=== PATIENT | female | born 1950 | race Caucasian/White ===

== ENCOUNTER 2020-04-15 20:13 | Emergency (ER) | payer MEDICARE, SELFPAY ==
--- NOTE | ~2020-04-15 | XR_ITS ---
EXAMINATION: XR chest 1V portable EXAM DATE: 04/15/2020 20:38 INDICATION: Shortness of breath for 4 days. COVID 19 positive. TECHNIQUE: Portable AP frontal chest x-ray was obtained. There is no prior study for comparison. FINDINGS: There is mild cardiomegaly and pulmonary vascular congestion. No confluent consolidation, p neumothorax or pleural effusion suspected. Left glenoid screws. Bony degenerative changes. IMPRESSION: Cardiomegaly, pulmonary vascular congestion. Reviewed, dictated and finalized at location A. ENT OMBUDSPERSON
[2020-04-15 20:18] VITALS: PULSE 80; RESP 18; TEMP 35.6; O2SAT 92
--- NOTE | 2020-04-15 20:21 | ECG_ITS ---
Measurements Intervals [place] Rate: 73 P: 32 AL: 154 QRS: 41 QRSD: 114 T: 6 QT: 400 QTc: 441 Interpretive Statements SINUS RHYTHM INTRAVENTRICULAR CONDUCTION DELAY BASELINE ARTIFACT- I, II, III, AVR, AVL, AVF BORDERLINE ECG Electronically Signed On 04-15-2020 20:34:31 PRODUCTION WELDING SUPERVISOR by Dewayne Vences D.O.
--- NOTE | 2020-04-15 20:34 | ED.SOB ---
HPI - SOB/Dyspnea General Chief Complaint: Shortness of Breath/Dyspnea Stated Complaint: wheezing, CoVID + Time Seen by Provider: 04/15/20 20:21 Source: patient Mode of arrival: ambulatory Limitations: no limitations History of Present Illness HPI Narrative: A 70-year-old female presents to the emergency department [facility] with complaints of shortness of breath. Patient was at an outside urgent care center, diagnosed with Covid. She was told she needed to come here for a breathing treatment. Patient does note that she feels somewhat short of breath and is wheezing. She denies any underlying history at this time. Patient states she does feel somewhat short of breath but otherwise is feeling well. Related Data Home Medications Medication Instructions Recorded Confirmed montelukast mg 04/15/20 pantoprazole PO 04/15/20 sertraline mg 04/15/20 Allergies Allergy/AdvReac Type Severity Reaction Status Date / Time Dairy Allergy Unknown Wheezing Uncoded 04/15/20 20:22 Review of Systems Review of Systems: Narrative: CONSTITUTIONAL: Denies fever, chills, or sweats. EYES: Denies visual changes, redness, or discharge. ENT: Denies rhinorrhea, congestion, sore throat, or otalgia. CARDIOVASCULAR: Denies chest pain, palpitations, or edema. RESPIRATORY: Endorses wheezing and dyspnea GASTROINTESTINAL: Denies abdominal pain, nausea, vomiting, or diarrhea. GENITOURINARY: Denies dysuria or hematuria. SKIN: Denies rash or itching. MUSCULOSKELETAL: Denies back pain, joint pain, or myalgia. NEUROLOGIC: Denies headache, numbness, dizziness, or weakness. PSYCHIATRIC: Denies anxiety or depression. [facility] Family History Family History Mother Family history of arthritis Family history of chronic obstructive pulmonary disease Sibling Family history of arthritis Social History Social History Smoking status: Never smoker Alcohol intake: current Gender identity (if verbalized by the patient): Female Sexual Orientation (if Verbalized by the Patient): Straight or Heterosexual Exam Narrative: Exam Narrative: GENERAL: Well-appearing, well-nourished, and in no acute distress. HEAD: Normocephalic, atraumatic. EYES: PERRLA and EOMI. ENT: Nares clear, no rhinorrhea or epistaxis. Mucous membranes moist. Oropharynx without tonsillar hypertrophy exudate or other lesions. Bilateral TMs pearly welch nonbulging NECK: Supple. No adenopathy or masses. No carotid bruits or JVD CHEST: Slightly tachypneic, diffusely wheezy HEART: Regular rate and rhythm. No murmur heard. Normal peripheral pulses. ABDOMEN: Soft, nontender, nondistended, normal active bowel sounds. EXTREMITIES: Normal range of motion. No edema. SKIN: Warm, dry, no rash. NEURO: No focal deficits. Alert and oriented x3. PSYCH: Normal mood and affect. Course Vital Signs Vital signs: Vital Signs Temperature 35.6 C L 04/15/20 20:18 Pulse Rate 80 04/15/20 20:18 Respiratory Rate 18 04/15/20 20:18 Pulse Oximetry 92 04/15/20 20:18 Temperature 35.6 C L 04/15/20 20:18 Pulse Rate 87 04/15/20 21:43 Respiratory Rate 20 04/15/20 21:43 Blood Pressure 136/46 L 04/15/20 21:43 Pulse Oximetry 96 04/15/20 21:43 MDM - SOB/Dyspnea MDM Narrative Medical decision making narrative: In brief this is a 70-year-old female who came into the emergency department today with shortness of breath. Patient was diagnosed with COVID-19 at an outside facility. She presented here very wheezy. She was told to come to the emergency department for breathing treatment. Patient did receive a breathing treatment as well as steroids. After period of observation she did state that she was feeling much better and is ready to go home. Lab Data Result diagrams: 04/15/20 20:36 04/15/20 20:36 Labs: Lab Results 04/15/20 04/15/20 Range/Units 20:36 20:
[2020-04-15 20:43] LABS: Basophils Percent Auto 0.3 % (0.2-1.2); Hematocrit 39.5 % (37.0-47.0); Hemoglobin 12.8 g/dL (12.0-15.0); Immature Granulocyte Absolute 0.01 K/mm3 (0.00-0.031); Immature Granulocyte Percent A 0.3 % (0-0.5); Immature Platelet Fraction Pct 5.5 % (0.9-11.2); Lymphocytes Percent Auto 13.3 % (18.3-44.2); Mean Corpuscular HGB Conc 32.4 g/dl (32-36); Mean Corpuscular Hemoglobin 27.6 pg (26-34); Mean Corpuscular Volume 85.3 fl (80-100); Monocytes Absolute Auto 0.4 K/mm3 (0.1-0.6); Monocytes Percent Auto 9.3 % (2.6-8.5); Neutrophils Absolute Auto 2.9 K/mm3 (1.3-6.7); Neutrophils Percent Auto 76.8 % (45.5-73.1); Platelet Count Result 137 k/mm3 (150-375); Red Blood Count 4.63 M/mm3 (4.2-5.4); Red Cell Distribution Width 13.5 % (11.5-14.5); White Blood Count 3.8 K/mm3 (4.5-10.0)
[2020-04-15 20:53] LABS: Anion Gap 10 mmol/L (8-16); Blood Urea Nitrogen 13 mg/dL (7-17); Calcium 8.8 mg/dL (8.4-10.2); Carbon Dioxide 24 mmol/L (22-30); Chloride 101 mmol/L (98-107); Estimated CRCL calculation 60 ml/min; Estimated Glomerular Filt Rate > 60; Glucose 120 mg/dL (65-105); Potassium 3.9 mmol/L (3.4-5.0); Sodium 135 mmol/L (137-145)
[2020-04-15 21:04] VITALS: PULSE 79; RESP 16
[2020-04-15] MEDS: IPRATROPIUM BR 0.02% INH SOLN 0.5 MG/2.5 ML VIAL 1 MG INHALATION (21:04)
[2020-04-15] MEDS: ALBUTEROL SULFATE NEB 2.5 MG/0.5 ML INH 5 MG INHALATION (21:04)
[2020-04-15 21:13] VITALS: PULSE 82; RESP 16
[2020-04-15 21:14] VITALS: BP 129/56; PULSE 81; RESP 13; O2SAT 98
[2020-04-15] MEDS: methylPREDNISolone SOD SUCC 125 MG VIAL IV PUSH (21:14)
[2020-04-15 21:43] VITALS: BP 136/46; PULSE 87; RESP 20; O2SAT 96
[2020-04-15 22:58] VITALS: BP 134/47; PULSE 83; RESP 17; O2SAT 95
== END 2020-04-15 23:05 | disposition home or self-care (01) ==
PROVIDERS: Emergency Provider Emergency Medicine; PCP Family Medicine Adolescent Medicine
DX: U07.1 COVID-19 (principal)
CPT/HCPCS: 36415; 71045; 80048; 85025; 85055; 93005; 94640; 96374; 99284; J2930

== ENCOUNTER 2020-04-20 01:59 | Inpatient (IN) | payer MEDICARE, SELFPAY ==
[2020-04-20] VITALS (44 sets, daily range): BP systolic 142–177; BP diastolic 66–91; PULSE 58–92; RESP 20–36; TEMP 35.9–38.2; O2SAT 64–98; BMI 37.2
--- NOTE | ~2020-04-20 | XR_ITS ---
EXAMINATION: XR chest 1V portable INDICATION: Endotracheal tube placement TECHNIQUE: Portable AP chest at 0847 hours COMPARISON: 0510 hours FINDINGS: An endotracheal tube has been inserted which ends 2.7 cm above the reyna. The nasogastric tube has been inserted which is followed as far as the stomach. Its tip is beyond the inferior margin of the radiograph. A right upper extremity PICC ends with its tip in the midsuperior vena cava. Diff use opacities persist throughout all lung zones without significant change. The cardiomediastinal regis houette is stable. There is no pleural effusion or pneumothorax. Surgical changes are again noted in the left shoulder. IMPRESSION: 1. Endotracheal and nasogastric tubes inserted in adequate position. 2. Stable diffuse lung disease, consistent with pneumonia and/or pulmonary edema and/or acute respira tory distress syndrome (ARDS). Reviewed, dictated and finalized at location A. NING AND DEVELOPMENT COORDINATOR IMPRESSION: 1. Endotracheal and nasogastric tubes inserted in adequate position. 2. Stable diffuse lung disease, consistent with pneumonia and/or pulmonary tom a and/or acute respiratory distress syndrome (ARDS).
--- NOTE | ~2020-04-20 | CT_ITS ---
EXAMINATION: CTA chest PE protocol DATE: 04/23/2020 12:37 INDICATION: Abrupt worsening hypoxia TECHNIQUE: Computed tomography angiography (CTA) of the chest was performed with 100 mL Omnipaque-350 intravenous contrast timed to evaluate the pulmonary arteries. Coronal maximum intensity projection 3D-reconstructions were created by the technologist. The dose-length product (DLP) was 902.65 mGy-cm. Automated exposure control and iterative reconstruction technique were employed. COMPARISON: None. FINDINGS: The pulmonary arteries are well-opacified. No pulmonary embolism is identified. There are w idespread groundglass opacities in the mid and upper lung zones. More focal areas of consolidation ar e present in the lower lobes. There is no pleural effusion or pneumothorax. The heart size is normal. There is mild hilar and mediastinal lymphadenopathy. There is moderate thoracic spondylosis. Advanc ed osteoarthritis is noted in the left glenohumeral joint. IMPRESSION: 1. No pulmonary embolism identified. 2. Diffuse lung disease, consistent with COVID 19 pneumonia. Reviewed, dictated and finalized at location A. ROL SYSTEMS DRAFTING OFFICER
--- NOTE | ~2020-04-20 | US_ITS ---
EXAMINATION: US venous doppler [facility] DATE: 05/09/2020 10:40 INDICATION: Lower limb swelling TECHNIQUE: Grayscale ultrasound images without and with compression and Doppler ultrasound images of the bilateral lower extremity veins were obtained. COMPARISON: None. FINDINGS: Noncompressible deep venous thrombosis in the right soleus vein and one of the 2 peroneal veins at th e right calf. The visualized portions of right common femoral vein, profunda (deep) femoral vein, fem oral vein, popliteal vein, posterior tibial veins, second peroneal vein, gastrocnemius vein and great er saphenous vein outflow are patent. Noncompressible deep venous thrombosis in one of the paired left posterior tibial veins at the left c sp. The visualized portions of left common femoral vein, profunda femoral vein, femoral vein, poplit eal vein, second posterior tibial vein, peroneal veins, gastrocnemius vein and greater saphenous vein outflow are patent. IMPRESSION: 1. Bilateral [id number] deep venous thrombosis. Findings were discussed with Justin Rose, the nurse caring for the patient, at 11:00 AM. Reviewed, dictated and finalized at location B. D MUSIC OPERATOR IMPRESSION: 1. Bilateral [id number] deep venous thrombosis. Findings were discussed wi Justin Rose, the nurse caring for the patient, at 11:00 AM.
--- NOTE | ~2020-04-20 | XR_ITS ---
XR chest 1V portable DATE: 05/13/2020 05:42 INDICATION: Respiratory failure TECHNIQUE: Portable AP chest on May 13, 2020 at 0509 hours COMPARISON: May 12, 2020 portable AP chest at 0949 hours FINDINGS: ET tube tip 2.6 cm of endocrine satisfactory position. NG tube in stomach. Right upper extr emity PIC catheter overlies the proximal superior vena cava. Heart size is normal. There are extensive diffuse bilateral pulmonary interstitial infiltrates, relatively sparing the left lung apex. Differential diagnosis includes extensive bilateral pneumonia, less likely pulmonary tom a. Also considered is respiratory distress syndrome. There is a small left apical pneumothorax, left apex down approximately 8 mm. There is minimal if any pleural effusion. Osteoarthritic changes at the glenohumeral joints. Postoperative change at the left glenoid process. Diffuse osteopenia. IMPRESSION: Small apical left pneumothorax Dr. Pratt telephoned the report including small left apical pneumothorax to ICU Nurse Mark on 2020 at 0649 hours Reviewed, dictated and finalized at location A. INE SPECIALIST IMPRESSION: Small apical left pneumothorax Dr. Pratt telephoned the report including small left apical pneumothorax to ICU Nurse Mark on May 13, 2020 at 0649 hours
--- NOTE | ~2020-04-20 | XR_ITS ---
EXAMINATION: XR chest 1V portable EXAM DATE: 05/07/2020 05:53 INDICATION: Acute respiratory failure, COVID-19 pneumonia TECHNIQUE: Portable AP frontal chest x-ray was obtained. Comparison is made to prior examination from 05/06, 05/05. FINDINGS: Endotracheal tube tip is 2 centimeters above the reyna. There is a nasogastric tube seen with tip collimated off the study, but below the left hemidiaphragm. There is a right-sided PICC line with tip poorly visualized but extending down the SVC There is extensive bilateral infection and/or edema. There are no sizable pleural effusions. There is no pneumothorax suspected. Cardiomediastinal silhouette is normal. Orthopedic fixation screws in the left glenoid. Associated glenohumeral osteoarthritis. There may be slight interval increase in confluence of airspace disease comparing to last several day s IMPRESSION: 1. Line, tubes in position. 2. Extensive bilateral infection and/or edema, stable or minimally increased in opacity. ER AND PULPER FEEDER Reviewed, dictated and finalized at location A. IMPRESSION: 1. Line, tubes in position. 2. Extensive bilateral infection and/or edema, stable or minimally increased i n opacity.
--- NOTE | ~2020-04-20 | XR_ITS ---
EXAMINATION: XR chest 1V portable INDICATION: COVID 19 pneumonia TECHNIQUE: Portable AP chest at 0510 hours COMPARISON: 05/02/2020 FINDINGS: A right upper extremity PICC ends with its tip in the midsuperior vena cava. Diffuse opacit ies persist throughout all lung zones without significant change. There is no pleural effusion or pne umothorax. The cardiomediastinal silhouette is stable. Surgical changes are noted in the left shoulde r. IMPRESSION: 1. Stable diffuse lung disease, consistent with pneumonia and/or pulmonary edema and/or acute respira tory distress syndrome (ARDS). Reviewed, dictated and finalized at location A. AL FRONT OFFICE ASSISTANT IMPRESSION: 1. Stable diffuse lung disease, consistent with pneumonia and/or pulmonary tom a and/or acute respiratory distress syndrome (ARDS).
--- NOTE | ~2020-04-20 | XR_ITS ---
EXAMINATION: XR chest 1V portable EXAM DATE: 05/08/2020 09:20 INDICATION: Desaturation. Respiratory failure. COVID 19 pneumonia. TECHNIQUE: Portable AP frontal chest x-ray was obtained. Comparison is made to prior examination from 520 a.m. same date, 05/07, 05/05. FINDINGS: Endotracheal tube tip is 3 centimeters above the reyna. There is a nasogastric tube seen with tip collimated off the study, but below the left hemidiaphragm. There is a right-sided PICC line with tip poorly visualized but extending down the SVC There is extensive bilateral infection and/or edema. Probable small pleural effusions. There is no pneumothorax suspected. Cardiomediastinal silhouette is normal. Orthopedic fixation screws in the left glenoid. Associated glenohumeral osteoarthritis. Accounting for differences in technique, there is no significant interval change compared to earlier same date. Going back several days there has been overall mild increase. IMPRESSION: 1. Line, tubes in position. 2. Extensive bilateral infection and/or edema. Reviewed, dictated and finalized at location A. ING LURE ASSEMBLER
--- NOTE | ~2020-04-20 | XR_ITS ---
EXAMINATION: XR chest 1V portable DATE: 05/10/2020 08:05 INDICATION: COVID 19 pneumonia. Respiratory failure. TECHNIQUE: frontal view of the chest was obtained. COMPARISON: Chest radiograph dated 05/09/2020 FINDINGS: Endotracheal tube tip 2.2 cm above the reyna. Right upper extremity peripherally inserted central ve nous catheter (PICC) tip at the superior vena cava. Nasogastric tube extends below the left hemidia phragm with distal tip collimated off the study. Persistent airspace opacities throughout the bilateral mid and lower lung zones. No pneumothorax or d efinitive pleural effusion. The cardiac silhouette is obscured by the adjacent lung disease but does not appear significantly enlarged. Severe bilateral glenohumeral osteoarthritis. Multiple screws at t he left glenoid. IMPRESSION: 1. No significant change in extensive bilateral lung disease which could represent pneumonia, pulmona ry edema or some combination thereof. Reviewed, dictated and finalized at location A. RGLASS AUTOBODY REPAIRER IMPRESSION: 1. No significant change in extensive bilateral lung disease which could repres ent pneumonia, pulmonary edema or some combination thereof.
--- NOTE | ~2020-04-20 | XR_ITS ---
XR chest 1V portable 04/26/2020 05:58 Indication: Respiratory failure Procedure: AP portable chest Comparison: Comparison to multiple prior studies sequentially, with oldest reviewed study dated 08/2020. Findings: Heart size is enlarged. There is bilateral airspace disease. No significant effusion or pne umothorax. PICC line tip in the SVC. There are degenerative changes of the shoulders. There are surgi betty changes of the left glenoid process. Impression: 1: Cardiomegaly with bilateral airspace disease which may represent edema or pneumonia. Reviewed, dictated and finalized at location A. ING MACHINE OPERATOR HELPER Impression: 1: Cardiomegaly with bilateral airspace disease which may represent edema or pn eumonia.
--- NOTE | ~2020-04-20 | XR_ITS ---
EXAMINATION: XR chest 1V portable EXAM DATE: 05/08/2020 06:26 INDICATION: Respiratory failure, COVID-19 pneumonia TECHNIQUE: Portable AP frontal chest x-ray was obtained. Comparison is made to prior examination from 05/07. FINDINGS: Endotracheal tube tip is 2-3 centimeters above the reyna. There is a nasogastric tube see n with tip collimated off the study, but below the left hemidiaphragm. There is a right-sided PICC li ne with tip poorly visualized but extending down the SVC There is extensive bilateral infection and/or edema. Possible small pleural effusions. There is no pneumothorax suspected. Cardiomediastinal silhouette is normal. Orthopedic fixation screws in the left glenoid. Associated glenohumeral osteoarthritis. Accounting for differences in technique, there is no significant interval change. IMPRESSION: 1. Line, tubes in position. 2. Extensive bilateral infection and/or edema, stable. Reviewed, dictated and finalized at location A. T STRIPING MACHINE OPERATOR
--- NOTE | ~2020-04-20 | XR_ITS ---
EXAMINATION: XR chest 1V portable INDICATION: Respiratory failure TECHNIQUE: Portable AP chest at 0745 hours COMPARISON: 05/03/2020 FINDINGS: The endotracheal tube ends approximately 2.0 cm above the reyna. The nasogastric tube is f ollowed as far as the stomach. Its tip is beyond the inferior margin of the radiograph. A right upper extremity PICC ends with its tip in the mid superior vena cava. Diffuse airspace opacities persist i n all lung zones without significant change. There is no pleural effusion or pneumothorax. The cardio mediastinal silhouette is stable. Surgical changes are noted in the left shoulder. IMPRESSION: 1. Stable diffuse lung disease, consistent with pneumonia and/or pulmonary edema and/or acute respira tory distress syndrome (ARDS). Reviewed, dictated and finalized at location A. JOINER IMPRESSION: 1. Stable diffuse lung disease, consistent with pneumonia and/or pulmonary tom a and/or acute respiratory distress syndrome (ARDS).
--- NOTE | ~2020-04-20 | XR_ITS ---
XR chest 1V portable DATE: 05/12/2020 05:39 INDICATION: Respiratory failure. Covid 19 pneumonia. TECHNIQUE: Portable AP chest on 05/12/2020 at 0504 hours COMPARISON: 05/11/2020 portable AP chest at 0512 hours FINDINGS: ET tube in satisfactory position 4.5 cm above reyna. NG tube is noted in stomach. Right up per extremity PIC catheter tip overlies superior vena cava. Interval development of moderate left pneumothorax. Again noted are severe diffuse bilateral pulmonary infiltrates, increased in severity since 05/11/2020 IMPRESSION: Interval development of moderate left pneumothorax; Dr. Pratt called the report to ICU fani se Flores on 05/12/2020 at 0611 hours. Severe bilateral pulmonary infiltrates, increased since 05/11/2020 Reviewed, dictated and finalized at location A. R BAG MAKING MACHINIST IMPRESSION: Interval development of moderate left pneumothorax; Dr. Pratt called the report to ICU nurse Flores on 05/12/2020 at 0611 hours. Severe bilateral pulmonary infiltrates, increased since 05/11/2020
--- NOTE | ~2020-04-20 | XR_ITS ---
EXAMINATION: XR chest 1V portable INDICATION: Respiratory failure TECHNIQUE: Portable AP chest at 0510 hours COMPARISON: 04/20/2020 FINDINGS: Diffuse patchy opacities persist with slight improvement in the midlung zones. There is no pleural effusion or pneumothorax. The cardiomediastinal silhouette is normal. Surgical changes are no penny in the left shoulder. IMPRESSION: 1. Diffuse lung disease with interval improvement, consistent with pneumonia and/or pulmonary edema a nd/or acute respiratory distress syndrome (ARDS). Reviewed, dictated and finalized at location A. RATION TECHNOLOGIST IMPRESSION: 1. Diffuse lung disease with interval improvement, consistent with pneumonia an d/or pulmonary edema and/or acute respiratory distress syndrome (ARDS).
--- NOTE | ~2020-04-20 | XR_ITS ---
EXAMINATION: XR chest 1V portable EXAM DATE: 04/30/2020 06:14 INDICATION: COVID-19 pneumonia . TECHNIQUE: Portable AP frontal chest x-ray was obtained. Comparison is made to prior examination from 04/29. FINDINGS: There is a right-sided PICC line, tip projecting over superior vena cava below the level o f the reyna. Moderate to large amount of diffuse bilateral airspace disease, pneumonia and/or edema. There are no sizable pleural effusions. There is no pneumothorax suspected. The cardiomediastinal silhouette is prominent but magnified on this AP technique. There are bony degenerative changes. There are ort hopedic screws in the left glenoid. There is no significant interval change compared to prior exam. IMPRESSION: 1. Diffuse bilateral airspace disease unchanged. Reviewed, dictated and finalized at location A. TY FIRE CHIEF
--- NOTE | ~2020-04-20 | XR_ITS ---
XR chest 1V portable 04/20/2020 02:49 Indication: Cough and shortness of breath Procedure: AP portable chest Comparison: 04/15/2020 Findings: Interval development of patchy bilateral airspace consolidation, consent stent with pneumon ia. No pleural effusion or pneumothorax. No acute osseous abnormality. Impression: 1: Interval development of patchy bilateral airspace consolidation, consistent with pneumonia. Reviewed, dictated and finalized at location A. LE MECHANIC HELPER Impression: 1: Interval development of patchy bilateral airspace consolidation, consistent with pneumonia.
--- NOTE | ~2020-04-20 | XR_ITS ---
EXAMINATION: XR chest 1V portable EXAM DATE: 05/05/2020 06:07 INDICATION: Acute respiratory failure, COVID-19 pneumonia. TECHNIQUE: Portable AP frontal chest x-ray was obtained. Comparison is made to prior examination from 05/04/2020. FINDINGS: Endotracheal tube tip is 2-3 centimeters above the reyna. There is a nasogastric tube see n with tip collimated off the study, but below the left hemidiaphragm. There is a right-sided PICC li ne with tip projecting over the level of the reyna. There is extensive bilateral infection and/or edema. There are no sizable pleural effusions. There is no pneumothorax suspected. The cardiomediastinal silhouette is prominent but magnified on this AP technique. Orthopedic fixation screws in the left glenoid. Associated glenohumeral osteoarthriti s. There is no significant interval change compared to prior exam. IMPRESSION: 1. PICC line tip at level of reyna. 2. Extensive bilateral infection and/or edema. Reviewed, dictated and finalized at location A. TRAINER
--- NOTE | ~2020-04-20 | XR_ITS ---
EXAMINATION: XR chest 1V portable EXAM DATE: 05/06/2020 06:22 INDICATION: Acute respiratory failure, COVID-19 pneumonia . TECHNIQUE: Portable AP frontal chest x-ray was obtained. Comparison is made to prior examination from 05/05. FINDINGS: Endotracheal tube tip is 2 centimeters above the reyna. There is a nasogastric tube seen with tip collimated off the study, but below the left hemidiaphragm. There is a right-sided PICC line with tip poorly visualized but extending down the SVC There is extensive bilateral infection and/or edema. There are no sizable pleural effusions. There is no pneumothorax suspected. Cardiomediastinal silhouette is normal. Orthopedic fixation screws in the left glenoid. Associated glenohumeral osteoarthritis. There is no significant interval change compared to prior exam. IMPRESSION: 1. Line, tubes in position. 2. Extensive bilateral infection and/or edema. Reviewed, dictated and finalized at location A. LLURGIST HELPER
--- NOTE | ~2020-04-20 | XR_ITS ---
EXAMINATION: XR chest 1V portable INDICATION: Respiratory failure TECHNIQUE: Portable AP chest at 0515 hours COMPARISON: 04/24/2020 FINDINGS: A right upper extremity PICC has been inserted which is followed to the proximal superior v gloria cava. Patchy bilateral airspace opacities persist without significant change. There is no pleural effusion or pneumothorax. The cardiomediastinal silhouette is normal. Surgical changes are again not ed in the left shoulder. IMPRESSION: 1. Stable diffuse lung disease, consistent with pneumonia and/or pulmonary edema and/or acute respira tory distress syndrome (ARDS). Reviewed, dictated and finalized at location A. GE MANAGER IMPRESSION: 1. Stable diffuse lung disease, consistent with pneumonia and/or pulmonary tom a and/or acute respiratory distress syndrome (ARDS).
--- NOTE | ~2020-04-20 | XR_ITS ---
EXAMINATION: XR chest 1V portable EXAM DATE: 05/02/2020 05:57 INDICATION: COVID-19 pneumonia TECHNIQUE: Portable AP frontal chest x-ray was obtained. Comparison is made to prior examination from 05/01, 04/30 and 04/29. FINDINGS: There is a right-sided PICC line, tip projecting over superior vena cava below the level o f the reyna. Large amount of diffuse bilateral airspace disease, pneumonia and/or edema. There are no sizable ple ural effusions. There is no pneumothorax suspected. The cardiomediastinal silhouette is prominent but magnified on this AP technique. There are bony degenerative changes. There are orthopedic scre ws in the left glenoid. Either stable or slight interval progression in the airspace disease compared to last several days. IMPRESSION: 1. Diffuse bilateral airspace disease, stable or mild progression. Reviewed, dictated and finalized at location A. FOUNDER
--- NOTE | ~2020-04-20 | XR_ITS ---
EXAMINATION: XR chest 1V portable DATE: 05/11/2020 06:14 INDICATION: COVID 19 pneumonia. Respiratory failure. TECHNIQUE: frontal view of the chest was obtained. COMPARISON: Chest radiograph dated 05/10/2020 FINDINGS: Endotracheal tube tip 2.9 cm above the reyna. Nasogastric tube extends below the left hemidiaphragm with distal tip collimated off the study. Right upper extremity peripherally inserted central venous catheter (PICC) tip at the superior vena cava. No significant interval change in mid and lower lung predominant opacities. No pneumothorax or defini tive pleural effusion. Heart size is normal. Multiple screws at the left glenoid. IMPRESSION: 1. No significant change in extensive bilateral lung disease which could represent pneumonia, pulmona ry edema, ARDS or some combination thereof. Reviewed, dictated and finalized at location A. MING ASSISTANT IMPRESSION: 1. No significant change in extensive bilateral lung disease which could repres ent pneumonia, pulmonary edema, ARDS or some combination thereof.
--- NOTE | ~2020-04-20 | XR_ITS ---
EXAMINATION: XR chest 1V portable EXAM DATE: 04/29/2020 06:09 INDICATION: COVID-19 pneumonia TECHNIQUE: Portable AP frontal chest x-ray was obtained. Comparison is made to prior examination from 04/28, 04/27. FINDINGS: There is a right-sided PICC line, tip projecting over superior vena cava below the level o f the reyna. Moderate to large amount of diffuse bilateral airspace disease, pneumonia and/or edema. There are no sizable pleural effusions. There is no pneumothorax suspected. The cardiomediastinal silhouette is prominent but magnified on this AP technique. There are bony degenerative changes. There are ort hopedic screws in the left glenoid. There is no significant interval change compared to prior exam. IMPRESSION: 1. Diffuse bilateral airspace disease unchanged. Reviewed, dictated and finalized at location A. D LIVESTOCK FARM WORKER
--- NOTE | ~2020-04-20 | XR_ITS ---
EXAMINATION: XR chest 1V portable EXAM DATE: 05/01/2020 05:54 INDICATION: COVID-19 pneumonia . TECHNIQUE: Portable AP frontal chest x-ray was obtained. Comparison is made to prior examination from 04/30. FINDINGS: There is a right-sided PICC line, tip projecting over superior vena cava below the level o f the reyna. Moderate to large amount of diffuse bilateral airspace disease, pneumonia and/or edema. There are no sizable pleural effusions. There is no pneumothorax suspected. The cardiomediastinal silhouette is prominent but magnified on this AP technique. There are bony degenerative changes. There are ort hopedic screws in the left glenoid. There is no significant interval change compared to prior exam. IMPRESSION: 1. Diffuse bilateral airspace disease unchanged. Reviewed, dictated and finalized at location A. LACE CUTTER MACHINE
--- NOTE | ~2020-04-20 | XR_ITS ---
EXAMINATION: XR chest 1V portable EXAM DATE: 05/09/2020 06:28 INDICATION: Respiratory failure, COVID-19 pneumonia. TECHNIQUE: Portable AP frontal chest x-ray was obtained. Comparison is made to prior examination from 05/08/2020. FINDINGS: Endotracheal tube tip is 3 centimeters above the reyna. There is a nasogastric tube seen with tip collimated off the study, but below the left hemidiaphragm. There is a right-sided PICC line with tip poorly visualized but extending down the SVC There is extensive bilateral infection and/or edema. Probable small pleural effusions. There is no pneumothorax suspected. Cardiomediastinal silhouette is difficult to evaluate due to silhouetting. Orthopedic fixation screws in the left glenoid. Associated glenohumeral osteoarthritis. There is no significant interval change. IMPRESSION: 1. Line, tubes in position. 2. Extensive bilateral infection and/or edema. 3. Reviewed, dictated and finalized at location A. CILOR
--- NOTE | ~2020-04-20 | XR_ITS ---
EXAMINATION: XR chest 1V portable EXAM DATE: 04/28/2020 05:32 INDICATION: Respiratory failure. TECHNIQUE: Portable AP frontal chest x-ray was obtained. Comparison is made to prior examination from 04/27/2020. FINDINGS: There is a right-sided PICC line, tip projecting over superior vena cava below the level o f the reyna. Mild cardiomegaly. Moderate to large amount of diffuse bilateral airspace disease, pneumonia and/or edema. There are no sizable pleural effusions. There is no pneumothorax suspected. The cardiomediastinal silhouette is prominent but magnified on this AP technique. There are bony degenerative changes. There are ort hopedic screws in the left glenoid. There is no significant interval change compared to prior exam. IMPRESSION: 1. Diffuse bilateral airspace disease unchanged. Reviewed, dictated and finalized at location A. TROMAGNET CRANE OPERATOR
--- NOTE | ~2020-04-20 | XR_ITS ---
EXAMINATION: XR chest ET placement DATE: 05/05/2020 13:02 INDICATION: Intubation. COVID-19 pneumonia. TECHNIQUE: A single frontal view of the chest was obtained. COMPARISON: Chest single view at 5:49 AM, chest CT 04/23/2020 FINDINGS: There are patchy airspace opacities throughout the lungs with relative sparing of the lung apices. No pleural effusion or pneumothorax. The heart size is normal. The endotracheal tube tip is 9 mm above the reyna. The nasogastric tube tip is in the stomach. A right upper extremity peripherall y inserted central venous catheter (PICC) is seen with tip in the superior vena cava. IMPRESSION: 1. Stable diffuse lung disease, consistent with pneumonia. 2. Endotracheal tube tip 9 mm above the reyna. Retraction is recommended. Reviewed, dictated and finalized at location A. FICIAL LIMB MAKER
--- NOTE | ~2020-04-20 | XR_ITS ---
XR chest 1V portable 04/27/2020 06:11 Indication: Respiratory failure Procedure: AP portable chest Comparison: Comparison to multiple prior studies sequentially, with oldest reviewed study dated 04/20. Findings: Heart size normal. Diffuse bilateral airspace disease is unchanged. There is a round radiod ensity overlying the left upper chest, likely external. PICC line tip in the SVC. No pneumothorax. No significant effusion. Impression: 1: Stable diffuse bilateral airspace disease which may represent edema or pneumonia. Reviewed, dictated and finalized at location A. CLEANING MACHINE OPERATOR Impression: 1: Stable diffuse bilateral airspace disease which may represent edema or pneum onia.
--- NOTE | ~2020-04-20 | XR_ITS ---
EXAMINATION: XR chest 1V portable EXAM DATE: 05/12/2020 09:54 INDICATION: Chest tube placement left side. COVID pneumonia. Respiratory failure. TECHNIQUE: Portable AP frontal chest x-ray was obtained. Comparison is made to prior examination from earlier same date. FINDINGS: Previous exam had a moderate size left-sided pneumothorax. This has been treated with a le ft-sided chest tube, no pleural reflection identified on this examination. Small amount of gas in the left axilla. Endotracheal tube, feeding tube, right-sided PICC line in position. Again there is moderate to large amount of bilateral acute airspace disease with relative sparing of the upper lung zones, likely COVI D pneumonia. Small pleural effusions. Left glenoid screws. IMPRESSION: 1. Resolution of previously seen left pneumothorax following chest tube insertion. 2. ET, NG, PICC lines in position. 3. Moderate to large amount of COVID pneumonia unchanged. Reviewed, dictated and finalized at location B. OGICAL TECHNICAL OFFICER IMPRESSION: 1. Resolution of previously seen left pneumothorax following chest tube insert ion. 2. ET, NG, PICC lines in position. 3. Moderate to large amount of COVID pneumonia unchanged.
--- NOTE | 2020-04-20 02:04 | ECG_ITS ---
Measurements Intervals [place] Rate: 73 P: 36 ID: 135 QRS: -5 QRSD: 120 T: 14 QT: 385 QTc: 427 Interpretive Statements SINUS RHYTHM INCOMPLETE RIGHT BUNDLE BRANCH BLOCK BORDERLINE ST-T WAVE ABNORMALITY- INFERIOR LEADS BASELINE ARTIFACT- I, II, III, V6 BORDERLINE ECG Electronically Signed On 04-20-2020 7:39:53 COMMUNITY SERVICE ORGANIZATION DIRECTOR by Dewayne Vences D.O.
--- NOTE | 2020-04-20 02:08 | ED.SOB ---
HPI - SOB/Dyspnea General Chief Complaint: Shortness of Breath/Dyspnea Stated Complaint: SOB Source: RN notes reviewed History of Present Illness HPI Narrative: Patient presents to emergency department from home via EMS for hypoxia. Patient was diagnosed with COVID-19 earlier this week states she is currently on albuterol inhaler and steroids at home she states that she has been progressively more short of breath. Patient with EMS tonight was noted to have oxygen saturation in the 60s on room air. She does states she has been having intermittent fevers with last Tylenol dose at 2:30 PM today she denies any chest pain abdominal pain vomiting or any other symptoms Related Data Home Medications Medication Instructions Recorded Confirmed montelukast mg 04/15/20 pantoprazole PO 04/15/20 sertraline 100 mg 04/15/20 benzonatate 200 mg PO TID PRN 04/20/20 Allergies Allergy/AdvReac Type Severity Reaction Status Date / Time Dairy Allergy Unknown Wheezing Uncoded 04/15/20 20:22 Review of Systems Review of Systems: Narrative: Gen.: Reports fever Eyes: Denies eye pain or visual change ENT: Denies congestion Respiratory: See HPI CV: Denies chest pain or palpitations GI: Denies abdominal pain nausea, emesis or diarrhea Musculoskeletal: Denies back pain or muscle pain Neuro: Denies numbness, tingling, weakness or focal weakness Skin: Denies rash Except as documented, all other systems reviewed and negative [facility] Past Medical History Medical History (Updated 04/20/20 @ 05:54 by Gualberto Smart DO) COVID-19 Family History Family History Mother Family history of arthritis Family history of chronic obstructive pulmonary disease Sibling Family history of arthritis Social History Social History Smoking status: Never smoker Alcohol intake: current Gender identity (if verbalized by the patient): Female Exam Narrative: Exam Narrative: APPEARANCE: Moderate respiratory distress nontoxic, sitting up in bed EYES: EOMI HEENT: Normocephalic, atraumatic, OMM RESPIRATORY: Moderate respiratory distress crackles throughout the bilateral lung lavarado no wheezing CARDIOVASCULAR: Regular rate and rhythm without murmurs rubs or gallops. ABDOMINAL: Soft, nontender, nondistended, no rebound or guarding MUSCULOSKELETAl: Moves all extremities. No clubbing, cyanosis or edema. NEURO: Awake and alert. Following commands, speech normal, no focal deficits SKIN:: Warm, dry. No rashes lesions or abrasions PSYCHIATRIC: Normal affect/mood, Course Course Emergency Course: Patient placed on BiPAP with improvement of oxygen saturation Discussed with Dr. Green presentation work-up agrees with admission to the IMU at this time. Request patient be started on Decadron and remdesivir Discussed with patient and family results of workup and diagnosis. Discussed need for admission. Patient and family understand and agree to current treatment plan Vital Signs Vital signs: Vital Signs Temperature 100.8 F H 04/20/20 01:56 Pulse Rate 79 04/20/20 01:56 Respiratory Rate 26 H 04/20/20 01:56 Blood Pressure 160/91 H 04/20/20 01:56 Pulse Oximetry 94 04/20/20 01:56 Temperature 98.6 F 04/20/20 05:35 Pulse Rate 64 04/20/20 05:35 Respiratory Rate 26 H 04/20/20 05:35 Blood Pressure 153/71 H 04/20/20 05:35 Pulse Oximetry 94 04/20/20 05:35 MDM - SOB/Dyspnea Lab Data Result diagrams: 04/20/20 02:06 04/20/20 02:06 Labs: Lab Results 04/20/20 04/20/20 04/20/20 Range/Units 02:06 02:06 02:06 WBC 5.6 (4.5-10.0) K/mm3 RBC 4.91 (4.2-5.4) M/mm3 Hgb 13.4 (12.0-15.0) g/dL Hct 40.6 (37.0-47.0) % MCV 82.7 (80-100) fl MCH 27.3 (26-34) pg MCHC 33.0 (32-36) g/dl RDW 13.6 (11.5-14.5) % Plt Count 174 (150-375) k/mm3 MPV 10.9 H (7.4-10.4) fl
[2020-04-20 02:15] LABS: Hematocrit 40.6 % (37.0-47.0); Hemoglobin 13.4 g/dL (12.0-15.0); Immature Granulocyte Absolute 0.06 K/mm3 (0.00-0.031); Immature Granulocyte Percent A 1.1 % (0-0.5); Lymphocytes Absolute Auto 0.37 K/mm3 (0.9-3.2); Lymphocytes Percent Auto 6.6 % (18.3-44.2); Mean Corpuscular Hemoglobin 27.3 pg (26-34); Mean Corpuscular Volume 82.7 fl (80-100); Mean Platelet Volume 10.9 fl (7.4-10.4); Monocytes Absolute Auto 0.2 K/mm3 (0.1-0.6); Monocytes Percent Auto 3.7 % (2.6-8.5); Neutrophils Percent Auto 88.6 % (45.5-73.1); Platelet Count Result 174 k/mm3 (150-375); Red Blood Count 4.91 M/mm3 (4.2-5.4); Red Cell Distribution Width 13.6 % (11.5-14.5); White Blood Count 5.6 K/mm3 (4.5-10.0)
[2020-04-20 02:29] LABS: Alanine Aminotransferase 22 U/L (4-35); Albumin Level 3.8 g/dL (3.5-5.1); Alkaline Phosphatase 78 U/L (38-126); Anion Gap 9 mmol/L (8-16); Aspartate Amino Transferase 44 U/L (14-36); Bilirubin,Total 0.5 mg/dL (0.2-1.3); Blood Urea Nitrogen 20 mg/dL (7-17); Calcium 8.9 mg/dL (8.4-10.2); Carbon Dioxide 26 mmol/L (22-30); Chloride 98 mmol/L (98-107); Estimated CRCL calculation 67 ml/min; Estimated Glomerular Filt Rate > 60; Glucose 152 mg/dL (65-105); Potassium 4.4 mmol/L (3.4-5.0); Sodium 133 mmol/L (137-145)
[2020-04-20 02:40] LABS: Lactic Acid Reflex 1.9 mmol/L (0.7-2.1)
[2020-04-20 02:53] LABS: INR 0.9; Prothrombin Time 12.7 Seconds (11.1-14.7)
[2020-04-20 02:54] LABS: Partial Thromboplastin Time 31.9 SECONDS (22.3-36.8)
[2020-04-20] MEDS: DEXAMETHASONE SOD PHOS INJ 4 MG/ML VIAL 6 MG IV PUSH (03:30)
--- NOTE | 2020-04-20 03:35 | PC.NURSE ---
Patient's daughter Kitty calls to get update on patient's status.
[2020-04-20 03:41] LABS: Alveolar/Arterial O2 Gradient 466.1 mmHg; Base Excess ABG -1.7 mEq/l (+/-2.0); Device NON-INVASIVE VENT; Fractional Inspired Oxygen 80 %; HCO3 ABG 22.3 mEq/l (22.0-26.0); Modified Allen's Test Pass; Oxygen Content ABG 16.5 %vol (16.0-22.0); Oxygen Saturation ABG 93.8 % (95.0-100.0); Oxyhemoglobin 92.5 % THb (90.0-100.0); PCO2 ABG 35.3 mmHg (35.0-45.0); PO2 ABG 67.2 mmHg (80.0-100.0); PO2 FiO2 Ratio Arterial Blood 0.84 %; Site Drawn LEFT RADIAL; Total Hemoglobin 12.7 g/dL (12.0-18.0); pH ABG 7.418 (7.350-7.450)
[2020-04-20 03:42] LABS: Non-Invasive Expiratory Pressure 5 CMH2O; Non-Invasive Inspiratory Pressure 10 CMH2O; Non-Invasive Vent Rate 12 /MIN
[2020-04-20] MEDS: SODIUM CHLORIDE 0.9% IV 1,000 ML 75 ML IV CONT ×2 (06:22→23:09)
[2020-04-20] MEDS: REMDESIVIR 200 MG/NS 250 ML 200 MG/250 ML BAG 250 MG IVPB (06:22)
--- NOTE | 2020-04-20 06:36 | ADMIMU ---
This patient, Sharee Robins, was admitted to IMU status, and placed in Intensive Care Unit-9 at 0550. Patient/family oriented to hospital policies and general routines including ID bracelet, bed and alarms, visiting hours, pain management, procedures, bathroom and other care routines, personal items, smoking policy, room service/diet, and visiting hours. Valuables list has been completed. Information on how to activate the Rapid Response Team has been discussed. Patient/Family are encouraged to report perceived risks to care and to ask questions if they do not understand what they are told or what they should do.
--- NOTE | 2020-04-20 11:48 | PC.NURSE ---
This patient, Sharee Robins, was transferred to [facility] on 04/20/20 at 1130. Personal belongings sent with patient. Report given to Isi HERNANDEZ. Appropriate documentation sent with patient.
--- NOTE | 2020-04-20 12:19 | PM.IMHP ---
H&P: HPI History of Present Illness Date/Time: 04/20/20 12:19 Chief Complaint: SOB Narrative: Sharee Robins is a 70 year old female with PMHx significant for Asthma, GERD. Patient was diagnosed with Covid few days ago presented to ED due to worsening sob, dry cough, wheezing. History taking is somehow limited as patient is currently requiring BiPAP. Patient states that she is anxious, feels sob. Preliminary work up was significant for chest xr with patchy infiltrates diffuse localized on the lungs. An ABG showed low PO2. Patient is currently requiring BiPAP. Review of Systems Review of Systems: Narrative: Unable to obtain as patient is currently on BiPAP. PMFSH Past Medical History Medical History (Updated 04/20/20 @ 12:38 by Stephan Waddell MD) COVID-19 Family History Family History Mother Family history of arthritis Family history of chronic obstructive pulmonary disease Sibling Family history of arthritis Social History Social History Smoking status: Never smoker Alcohol intake: never Substance use: never Gender identity (if verbalized by the patient): Female Spiritual care concerns: No Meds Home Medications and Allergies Home Medications Medication Instructions Recorded Confirmed Type albuterol sulfate [ProAir HFA] 2 puff INHALATION QID PRN #8.5 g 04/15/20 04/20/20 Rx montelukast 10 mg PO DAILY 04/15/20 04/20/20 History pantoprazole 40 mg PO DAILY 04/15/20 04/20/20 History prednisone 20 mg PO BID #14 tablet 04/15/20 04/20/20 Rx sertraline 100 mg PO DAILY 04/15/20 04/20/20 History benzonatate 200 mg PO TID PRN 04/20/20 04/20/20 History Allergies Allergy/AdvReac Type Severity Reaction Status Date / Time Dairy Allergy Unknown Wheezing Uncoded 04/15/20 20:22 Vital Signs Vital Signs - 24 hr 04/20/20 01:56 04/20/20 02:01 04/20/20 02:08 Temperature 100.8 F H Pulse Rate 79 Respiratory Rate 26 H 33 H Blood Pressure 160/91 H Pulse Oximetry 94 96 96 04/20/20 02:13 04/20/20 02:15 04/20/20 02:32 Temperature Pulse Rate 77 72 68 Respiratory Rate 28 H 31 H 25 H Blood Pressure Pulse Oximetry 94 94 93 04/20/20 02:45 04/20/20 02:50 04/20/20 03:00 Temperature 99.8 F H Pulse Rate 69 68 Respiratory Rate 28 H 25 H Blood Pressure Pulse Oximetry 92 04/20/20 03:01 04/20/20 03:02 04/20/20 03:17 Temperature Pulse Rate 69 69 65 Respiratory Rate 26 H 28 H Blood Pressure 170/77 H Pulse Oximetry 93 94 91 04/20/20 03:32 04/20/20 03:48 04/20/20 04:00 Temperature Pulse Rate 58 L 63 63 Respiratory Rate 26 H 28 H 24 H Blood Pressure Pulse Oximetry 91 90 89 L 04/20/20 04:01 04/20/20 04:15 04/20/20 04:21 Temperature Pulse Rate 64 64 64 Respiratory Rate 22 H 24 H Blood Pressure 145/70 H 145/70 H Pulse Oximetry 94 90 92 04/20/20 04:30 04/20/20 04:31 04/20/20 04:45 Temperature Pulse Rate 58 L 60 58 L Respiratory Rate 26 H 28 H 23 H Blood Pressure 142/66 H Pulse Oximetry 90 92 94 04/20/20 05:00 04/20/20 05:01 04/20/20 05:15 Temperature Pulse Rate 68 63 64 Respiratory Rate 26 H 29 H 25 H Blood Pressure 148/69 H Pulse Oximetry 89 L 91 94 04/20/20 05:19 04/20/20 05:30 04/20/20 05:31 Temperature Pulse Rate 92 63 61 Respiratory Rate 27 H 23 H Blood Pressure 153/71 H Pulse Oximetry 64 L 93 95 04/20/20 05:35 04/20/20 06:00 04/20/20 06:20 Temperature 98.6 F 97.9 F Pulse Rate 64 64 Respiratory Rate 26 H 28 H Blood Pressure 153/71 H 168/81 H Pulse Oximetry 94 98 96 04/20/20 07:01 04/20/20 08:00 04/20/20 08:10 Temperature 96.6 F L Pulse Rate 61 62 62 Respiratory Rate 26 H 26 H Blood Pressure 145/75 H Pulse Oximetry 97 97 04/20/20 10:00 04/20/20 11:00 04/20/20 11:40 Temperature Pulse Rate 64 61 77 Respiratory Rate 27 H 24 H Blood Pressure Pulse Oximetry 94 91
[2020-04-21] VITALS (20 sets, daily range): BP systolic 143–176; BP diastolic 57–96; PULSE 60–90; RESP 20–35; TEMP 35.6–37.2; O2SAT 88–96
[2020-04-21] MEDS: SODIUM CHLORIDE 0.9% IV 1,000 ML 75 ML IV CONT (10:25)
[2020-04-21] MEDS: DEXAMETHASONE SOD PHOS INJ 4 MG/ML VIAL 6 MG IV PUSH (10:26)
[2020-04-21 11:33] LABS: Basophils Percent Auto 0.2 % (0.2-1.2); Hematocrit 38.8 % (37.0-47.0); Hemoglobin 12.4 g/dL (12.0-15.0); Immature Granulocyte Absolute 0.07 K/mm3 (0.00-0.031); Immature Granulocyte Percent A 1.4 % (0-0.5); Lymphocytes Percent Auto 8.1 % (18.3-44.2); Mean Corpuscular Hemoglobin 27.1 pg (26-34); Mean Corpuscular Volume 84.9 fl (80-100); Mean Platelet Volume 10.9 fl (7.4-10.4); Monocytes Absolute Auto 0.3 K/mm3 (0.1-0.6); Monocytes Percent Auto 6.5 % (2.6-8.5); Neutrophils Absolute Auto 4.1 K/mm3 (1.3-6.7); Neutrophils Percent Auto 83.8 % (45.5-73.1); Platelet Count Result 172 k/mm3 (150-375); Red Blood Count 4.57 M/mm3 (4.2-5.4); Red Cell Distribution Width 13.7 % (11.5-14.5); White Blood Count 4.9 K/mm3 (4.5-10.0)
[2020-04-21 11:56] LABS: Alanine Aminotransferase 18 U/L (4-35)
[2020-04-21 12:19] LABS: Alveolar/Arterial O2 Gradient 309.9 mmHg; Base Excess ABG -0.1 mEq/l (+/-2.0); Fractional Inspired Oxygen 60 %; HCO3 ABG 25.4 mEq/l (22.0-26.0); Oxygen Content ABG 16.7 %vol (16.0-22.0); Oxygen Saturation ABG 93.2 % (95.0-100.0); Oxyhemoglobin 92.6 % THb (90.0-100.0); PCO2 ABG 44.8 mmHg (35.0-45.0); PO2 ABG 68.6 mmHg (80.0-100.0); PO2 FiO2 Ratio Arterial Blood 1.14 %; Total Hemoglobin 12.8 g/dL (12.0-18.0); pH ABG 7.372 (7.350-7.450)
[2020-04-21 12:20] LABS: Device NON-INVASIVE VENT; Modified Allen's Test Pass; Non-Invasive Expiratory Pressure 5 CMH2O; Non-Invasive Inspiratory Pressure 10 CMH2O; Non-Invasive Vent Rate 12 /MIN; Site Drawn RIGHT RADIAL
[2020-04-21 12:41] LABS: Glucose Point of Care 89 (65-105)
--- NOTE | 2020-04-21 13:39 | PM.IMPN ---
Progress Note: A&P Assessment and Plan (1) Pneumonia due to 2019 novel coronavirus: Code(s): U07.1 - COVID-19; J12.82 - Pneumonia due to coronavirus disease 2019 Status: Acute Assessment and Plan: On Remdesivir and Dexamethasone (2) Asthma: Code(s): J45.909 - Unspecified asthma, uncomplicated Status: Acute Assessment and Plan: Breathing treatments Systemic steroids (3) Acute respiratory failure with hypoxia: Code(s): J96.01 - Acute respiratory failure with hypoxia Status: Acute Assessment and Plan: Currently on BiPAP ABG minimally improved PO2 Will alternate in between HFNC and BiPAP Subjective Date/time seen: 04/21/20 13:39 Patient states that she feels better. Review of Systems Review of Systems: Narrative: Unable to obtain as patient is on BiPAP at the present time. Exam Narrative: Exam Narrative: Patient presented to ED with worsening sob Const: General: no acute distress, alert, awake and other (On BiPAP) Nutritional Appearance: average body habitus Orientation/consciousness: patient oriented x3 HENMT: Head: normocephalic General nose exam: Normal external nose present Face and sinus: normal facial exam Neck: Neck: no lymphadenopathy and no JVD Resp: Auscultation: diminished lung sounds Cardio: Jugular venous distension: no JVD Rate: regular rate Rhythm: regular rhythm GI: GI Palp: Yes Soft to palpation and Yes No hepatosplenomegaly present Skin: General skin exam: normal color Neuro: General: patient oriented x3 Cranial nerves: Yes CN's II-XII intact bilaterally and Yes Equal, round and reactive pupils present Motor exam (neuro): 5/5 motor strength present throughout Extrem: General: no pedal edema Objective Data Vital Signs Vital Signs: Vital Signs - 24 hr 04/20/20 13:59 04/20/20 16:00 04/20/20 16:27 Temperature 97.6 F Pulse Rate 78 66 61 Respiratory Rate 23 H 33 H 20 Blood Pressure 170/77 H Pulse Oximetry 92 92 97 04/20/20 18:00 04/20/20 20:00 04/20/20 20:36 Temperature 96.8 F L Pulse Rate 68 69 74 Respiratory Rate 25 H 25 H Blood Pressure 154/78 H Pulse Oximetry 92 92 04/20/20 22:00 04/20/20 23:21 04/21/20 00:00 Temperature 97.7 F Pulse Rate 66 71 68 Respiratory Rate 36 H Blood Pressure 177/80 H Pulse Oximetry 91 04/21/20 02:40 04/21/20 04:00 04/21/20 06:00 Temperature 99 F Pulse Rate 70 73 90 Respiratory Rate 29 H 35 H Blood Pressure 176/96 H Pulse Oximetry 92 95 04/21/20 07:14 04/21/20 08:00 04/21/20 08:26 Temperature 97.1 F L Pulse Rate 72 67 75 Respiratory Rate 35 H 35 H Blood Pressure 151/66 H Pulse Oximetry 95 95 04/21/20 08:35 04/21/20 10:00 04/21/20 12:00 Temperature 96.7 F L Pulse Rate 73 70 Respiratory Rate 34 H Blood Pressure 166/68 H Pulse Oximetry 94 96 04/21/20 12:18 Temperature Pulse Rate 72 Respiratory Rate 34 H Blood Pressure Pulse Oximetry 94 Intake/Output Intake/Output: Intake & Output 04/18/20 04/19/20 04/20/20 04/21/20 23:59 23:59 23:59 23:59 Intake Total 1100 1000 Output Total 1000 600 Balance 100 400 Meds/Results Medications: Active Medications Generic Name Dose Route Start Last Admin Trade Name Freq PRN Reason Stop Dose Admin Dexamethasone Sodium Phosphate 6 mg 04/21/20 09:00 04/21/20 10:26 Dexamethasone Sod Phos Inj 4 Mg/Ml Vial IV PUSH 04/30/20 09:01 6 mg DAILY LEXIS Administration Remdesivir 100 mg in 250 mls @ 250 mls/hr 04/21/20 10:00 IVPB 04/24/20 10:01 Q24H LEXIS Sodium Chloride 1,000 mls @ 75 mls/hr 04/20/20 03:25 04/21/20 10:25 Normal Saline Iv IV CONT 75 mls/hr .[id number] LEXIS Administration Radiology Results: ITS Impressions Chest X-Ray 04/20/20 08:12 Impression: 1: Interval development of patchy bilateral airspace consolidation, consistent with pneumonia. Labs Labs: Laboratory Results - last 24 hr 04/21/20 04/21/2004/21
[2020-04-21 14:50] LABS: Anion Gap 5 mmol/L (8-16); Blood Urea Nitrogen 23 mg/dL (7-17); Calcium 8.5 mg/dL (8.4-10.2); Carbon Dioxide 25 mmol/L (22-30); Chloride 103 mmol/L (98-107); Estimated CRCL calculation 67 ml/min; Estimated Glomerular Filt Rate > 60; Glucose 94 mg/dL (65-105); Potassium 4.8 mmol/L (3.4-5.0); Sodium 133 mmol/L (137-145)
[2020-04-21] MEDS: REMDESIVIR 100 MG/NS 250 ML 100 MG/250 ML BAG 250 MG IVPB (16:15)
[2020-04-21 17:33] LABS: Alveolar/Arterial O2 Gradient 474.1 mmHg; Base Excess ABG -1.4 mEq/l (+/-2.0); Fractional Inspired Oxygen 80 %; HCO3 ABG 23.1 mEq/l (22.0-26.0); Oxygen Content ABG 15.3 %vol (16.0-22.0); Oxygen Saturation ABG 89.6 % (95.0-100.0); Oxyhemoglobin 88.4 % THb (90.0-100.0); PO2 ABG 56.4 mmHg (80.0-100.0); PO2 FiO2 Ratio Arterial Blood 0.71 %; Total Hemoglobin 12.3 g/dL (12.0-18.0); pH ABG 7.401 (7.350-7.450)
[2020-04-21 17:34] LABS: Device HIGH FLOW NASAL CANN; Modified Allen's Test Pass; Site Drawn LEFT RADIAL
[2020-04-22] VITALS (17 sets, daily range): BP systolic 146–157; BP diastolic 64–81; PULSE 58–91; RESP 20–28; TEMP 35.8–37.6; O2SAT 92–96
[2020-04-22] MEDS: SODIUM CHLORIDE 0.9% IV 1,000 ML 75 ML IV CONT (01:02)
[2020-04-22] MEDS: ALBUTEROL SULFATE NEB 2.5 MG/0.5 ML INH INHALATION (01:41)
[2020-04-22] MEDS: IPRATROPIUM BR 0.02% INH SOLN 0.5 MG/2.5 ML VIAL INHALATION (01:41)
[2020-04-22 05:37] LABS: Alanine Aminotransferase 17 U/L (4-35)
[2020-04-22 07:26] LABS: Estimated CRCL calculation 78 ml/min; Estimated Glomerular Filt Rate > 60
[2020-04-22] MEDS: REMDESIVIR 100 MG/NS 250 ML 100 MG/250 ML BAG 250 MG IVPB (09:59)
[2020-04-22] MEDS: ENOXAPARIN 40 MG/0.4 ML SYRINGE SUB-Q ×2 (09:59→21:07)
[2020-04-22] MEDS: DEXAMETHASONE SOD PHOS INJ 4 MG/ML VIAL 6 MG IV PUSH (09:59)
[2020-04-22] MEDS: SERTRALINE HCL 50 MG TABLET 100 MG PO (12:37)
[2020-04-22] MEDS: PANTOPRAZOLE 40 MG TABLET PO (12:37)
[2020-04-22] MEDS: BENZONATATE 100 MG CAPSULE 200 MG PO ×2 (13:32→21:07)
--- NOTE | 2020-04-22 14:46 | PM.IMPN ---
Progress Note: A&P Assessment and Plan (1) Pneumonia due to 2019 novel coronavirus: Code(s): U07.1 - COVID-19; J12.82 - Pneumonia due to coronavirus disease 2019 Status: Acute Assessment and Plan: On Remdesivir and Dexamethasone D#2 recheck markers am (2) Asthma: Code(s): J45.909 - Unspecified asthma, uncomplicated Status: Acute Assessment and Plan: albuterol and Systemic steroids (3) Acute respiratory failure with hypoxia: Code(s): J96.01 - Acute respiratory failure with hypoxia Status: Acute Assessment and Plan: Currently on high flow NC ABG minimally improved PO2 Will alternate in between HFNC and BiPAP (4) DVT prophylaxis: Code(s): Z29.9 - Encounter for prophylactic measures, unspecified Status: Acute Assessment and Plan: lovenox q 12h Subjective Date/time seen: 04/22/20 14:46 Interval history: 70-year-old female admitted with respiratory failure and COVID pneumonia. Symptoms started 04/11/2020 and diagnosis 04/15. Presently receiving remdesivir And dexamethasone but was beyond the window for convalescent plasma. She states is still some short of breath and still coughing some with congestion Exam Narrative: Exam Narrative: Blood pressure 156/80 pulse 64 respirations 28 per minute saturating 93% on 15 L high-flow nasal cannula Pupils equal reactive light Lungs faint left basilar crackles and some on the right no wheezing CV no murmurs or gallops Abdomen soft nontender Extremities without edema good distal pulses Neuro alert cooperative no focal deficits Objective Data Vital Signs Vital Signs: Vital Signs - 24 hr 04/21/20 16:00 04/21/20 16:15 04/21/20 17:56 Temperature 35.6 C L Pulse Rate 75 73 Respiratory Rate 20 Blood Pressure 148/73 H Pulse Oximetry 94 95 04/21/20 18:00 04/21/20 20:00 04/21/20 22:00 Temperature 36.3 C L Pulse Rate 69 62 60 Respiratory Rate 22 H Blood Pressure 143/68 H Pulse Oximetry 92 04/21/20 23:42 04/22/20 00:00 04/22/20 01:41 Temperature 36.6 C Pulse Rate 66 61 62 Respiratory Rate 24 H 22 H Blood Pressure 145/57 H Pulse Oximetry 92 92 04/22/20 01:55 04/22/20 02:00 04/22/20 04:00 Temperature 36.2 C L Pulse Rate 67 66 63 Respiratory Rate 22 H 26 H Blood Pressure 157/77 H Pulse Oximetry 92 04/22/20 06:00 04/22/20 08:00 04/22/20 08:35 Temperature 36.4 C Pulse Rate 63 65 Respiratory Rate 26 H Blood Pressure 151/78 H Pulse Oximetry 94 92 04/22/20 10:00 04/22/20 12:00 04/22/20 12:35 Temperature 37.6 C Pulse Rate 60 64 Respiratory Rate 28 H Blood Pressure 156/81 H Pulse Oximetry 93 93 Intake/Output Intake/Output: Intake & Output 04/19/20 04/20/20 04/21/20 04/22/20 23:59 23:59 23:59 23:59 Intake Total 1100 2680 1359 Output Total 1000 1600 450 Balance 100 1080 909 Meds/Results Medications: Active Medications Generic Name Dose Route Start Last Admin Trade Name Freq PRN Reason Stop Dose Admin Albuterol 2 puff 04/22/20 11:33 Albuterol Sulfate (*Sp) Inhaler INHALATION QID PRN shortness of breath or wheezing Benzonatate 200 mg 04/22/20 11:32 04/22/20 13:32 Benzonatate 100 Mg Capsule PO 200 mg TID PRN Administration Cough Dexamethasone Sodium Phosphate 6 mg 04/21/20 09:00 04/22/20 09:59 Dexamethasone Sod Phos Inj 4 Mg/Ml Vial IV PUSH 04/30/20 09:01 6 mg DAILY LEXIS Administration Enoxaparin Sodium 40 mg 04/22/20 09:00 04/22/20 09:59 Enoxaparin 40 Mg/0.4 Ml Syringe SUB-Q 40 mg Q12HR LEXIS Administration Remdesivir 100 mg in 250 mls @ 250 mls/hr 04/21/20 10:00 04/22/20 10:59 IVPB 04/24/20 10:01 Infused Q24H LEXIS Infusion Montelukast Sodium 10 mg 04/22/20 21:00 Montelukast Sodium 10 Mg Tablet PO HS LEXIS Pantoprazole Sodium 40 mg 04/22/20 09:00 04/22/20 12:37 Pantoprazole 40 Mg Tablet PO 40 mg DAILY LEXIS Administration Sertraline
[2020-04-22] MEDS: ALBUTEROL SULFATE (*SP) INHALER 2 PUFF INHALATION ×2 (16:40→21:11)
[2020-04-22] MEDS: MONTELUKAST SODIUM 10 MG TABLET PO (21:07)
[2020-04-23] VITALS (22 sets, daily range): BP systolic 120–158; BP diastolic 59–78; PULSE 57–96; RESP 18–34; TEMP 36.3–37.2; O2SAT 60–98
[2020-04-23 05:53] LABS: Basophils Percent Auto 0.4 % (0.2-1.2); Hematocrit 38.6 % (37.0-47.0); Hemoglobin 12.5 g/dL (12.0-15.0); Immature Granulocyte Absolute 0.28 K/mm3 (0.00-0.031); Immature Granulocyte Percent A 3.3 % (0-0.5); Mean Corpuscular HGB Conc 32.4 g/dl (32-36); Mean Corpuscular Volume 83.4 fl (80-100); Mean Platelet Volume 10.7 fl (7.4-10.4); Monocytes Absolute Auto 0.5 K/mm3 (0.1-0.6); Monocytes Percent Auto 5.7 % (2.6-8.5); Neutrophils Absolute Auto 7.1 K/mm3 (1.3-6.7); Neutrophils Percent Auto 84.6 % (45.5-73.1); Platelet Count Result 199 k/mm3 (150-375); Red Blood Count 4.63 M/mm3 (4.2-5.4); Red Cell Distribution Width 13.3 % (11.5-14.5); White Blood Count 8.4 K/mm3 (4.5-10.0)
[2020-04-23 06:37] LABS: D Dimer 15.92 ug/mL (<0.48)
[2020-04-23 06:54] LABS: Alanine Aminotransferase 18 U/L (4-35); Alkaline Phosphatase 76 U/L (38-126); Anion Gap 2 mmol/L (8-16); Aspartate Amino Transferase 34 U/L (14-36); Bilirubin,Total 0.4 mg/dL (0.2-1.3); Blood Urea Nitrogen 22 mg/dL (7-17); Calcium 8.8 mg/dL (8.4-10.2); Carbon Dioxide 29 mmol/L (22-30); Chloride 103 mmol/L (98-107); Estimated CRCL calculation 79 ml/min; Estimated Glomerular Filt Rate > 60; Glucose 106 mg/dL (65-105); Lactate Dehydrogenase 823 U/L (313-618); Potassium 4.6 mmol/L (3.4-5.0); Sodium 134 mmol/L (137-145)
[2020-04-23] MEDS: ALBUTEROL SULFATE (*SP) INHALER 2 PUFF INHALATION ×3 (08:25→20:40)
[2020-04-23] MEDS: ENOXAPARIN 40 MG/0.4 ML SYRINGE SUB-Q ×2 (09:03→20:39)
[2020-04-23] MEDS: PANTOPRAZOLE 40 MG TABLET PO (09:04)
[2020-04-23] MEDS: DEXAMETHASONE SOD PHOS INJ 4 MG/ML VIAL 6 MG IV PUSH (09:04)
[2020-04-23] MEDS: SERTRALINE HCL 50 MG TABLET 100 MG PO (09:05)
[2020-04-23] MEDS: REMDESIVIR 100 MG/NS 250 ML 100 MG/250 ML BAG 250 MG IVPB (09:14)
[2020-04-23 09:30] LABS: Vitamin D 25 Hydroxy 72.6 ng/mL
--- NOTE | 2020-04-23 12:28 | WPDCNINT ---
Assessment and Plan Assessment and plan (1) Acute respiratory failure with hypoxia: Code(s): J96.01 - Acute respiratory failure with hypoxia Status: Acute Assessment and Plan: Acute Respiratory failure secondary to COVID-19 pneumonia Patient currently on high-flow nasal cannula with 60 L and 80% FiO2. May need intubation continue close ICU monitoring ABG reviewed CXR shows Interval development of patchy bilateral airspace consolidation, consistent with pneumonia. CTA chest was done due to elevated D-dimer level and was negative for PE and showed diffuse lung disease consistent with COVID-19 pneumonia Incentive spirometry, up in chair if patient tolerates I encouraged patient to lay prone as much as possible Check BNP (2) Pneumonia due to 2019 novel coronavirus: Code(s): U07.1 - COVID-19; J12.82 - Pneumonia due to coronavirus disease 2019 Status: Acute Assessment and Plan: Patient is in Airborne, Droplet and Contact Isolation Continue dexamethasone , remdesivir started 04/21/20 Follow inflammatory periodically Discussed benefits and risks of convalscent plasma therapy for COVID-19. I explained patient the risks of donor plasma which includes allergic reaction, transfusion reaction, possible transmission of infections like Hepatitis and HIV and even . Explained that donor plasma has shown benefit in some studies but is not a proven therapy. Patient understands the risks, is agreeable to proceed and gave his informed consent. I have placed order for 1 unit of convalscent plasma (3) Asthma: Code(s): J45.909 - Unspecified asthma, uncomplicated Status: Acute Assessment and Plan: albuterol p.r.n. Systemic steroids -dexamethasone (4) DVT prophylaxis: Code(s): Z29.9 - Encounter for prophylactic measures, unspecified Status: Acute Assessment and Plan: lovenox q 12h Additional Plan DVT prophylaxis -patient on Lovenox q.12 hours Stress ulcer prophylaxis -PPI Code Status -patient wishes to be Full Code. She wants us to contact her sister Perri for decision making if she is unable to make decisions for herself Total Critical Care Time - 38 minutes Due to a high probability of clinically significant, life threatening deterioration, the patient required my highest level of preparedness to intervene emergently and I personally spent this critical care time directly and personally managing the patient. This critical care time included obtaining a history; examining the patient; pulse oximetry; ordering and review of studies; arranging urgent treatment with development of a management plan; evaluation of patient's response to treatment; frequent reassessment; and discussions with other providers. It was exclusive of separately billable procedures and treating other patients and teaching time. Please see Assessment and Plan section and the rest of the note for further information on patient assessment and treatment [employer] Consult Note Consult date: 04/23/20 Time Seen: 14:00 HPI: Sharee Robins is a 70 year old female with PMHx significant for Asthma, GERD presented with shortness of breath on 04/20. Patient was diagnosed with COVID-19 04/15. She also complained of dry cough, wheezing. Patient was admitted to step-down unit and started on dexamethasone and remdesivir. Her hypoxia continue to worsen and today she was transferred to ICU for worsening hypoxia and respiratory failure for further evaluation and management. CT and lung was done to rule out PE and was negative. Patient told me says she felt short of breath prior to coming to the hospital which was acid with dry cough. She also felt fatigued, had body aches, chills and diarrhea. No change in sensation of taste or smell. She denied any other complaints and all other systems were reviewed and were negative. Review of Systems Review of Systems: All systems reviewed & are unremarkable except as noted
[2020-04-23 13:29] LABS: NT Pro B Type Natriuretic Pept 341 PG/ML (5-100)
--- NOTE | 2020-04-23 13:51 | PM.IMPN ---
Progress Note: A&P Assessment and Plan (1) Pneumonia due to 2019 novel coronavirus: Code(s): U07.1 - COVID-19; J12.82 - Pneumonia due to coronavirus disease 2019 Status: Acute Assessment and Plan: On Remdesivir and Dexamethasone D#3 markers this am not extremely elevated other than d dimer at 15, but no baseline for comparison (2) Asthma: Code(s): J45.909 - Unspecified asthma, uncomplicated Status: Acute Assessment and Plan: albuterol and Systemic steroids (3) Acute respiratory failure with hypoxia: Code(s): J96.01 - Acute respiratory failure with hypoxia Status: Acute Assessment and Plan: was on high flow NC early this am but late morning 02 requirements went up rapidly and patient was transferred to ICU for closer observation and possible impending intubation . CTA no emboli (4) DVT prophylaxis: Code(s): Z29.9 - Encounter for prophylactic measures, unspecified Status: Acute Assessment and Plan: lovenox q 12h Subjective Date/time seen: 04/23/20 13:51 Interval history: Date of visit 04/23 70-year-old female admitted with respiratory failure and COVID pneumonia. Symptoms started 04/11/2020 and + swab 04/15. Presently receiving remdesivir And dexamethasone but was beyond the window for convalescent plasma. She states is still some short of breath and still coughing some with congestion Exam Narrative: Exam Narrative: Blood pressure 150/78 pulse 72 respirations 26 per minute saturating 92% on 15 L high-flow nasal cannula Pupils equal reactive light Lungs faint left basilar crackles and some on the right no wheezing CV no murmurs or gallops Abdomen soft nontender Extremities without edema good distal pulses Neuro alert cooperative no focal deficits Objective Data Vital Signs Vital Signs: Vital Signs - 24 hr 04/22/20 14:00 04/22/20 16:00 04/22/20 18:00 Temperature 35.8 C L Pulse Rate 61 58 L 77 Respiratory Rate 26 H Blood Pressure 151/66 H Pulse Oximetry 93 04/22/20 20:00 04/22/20 22:00 04/22/20 23:53 Temperature 36.1 C L 36.3 C L Pulse Rate 63 60 60 Respiratory Rate 22 H 20 20 Blood Pressure 146/64 H 146/67 H Pulse Oximetry 96 94 94 04/23/20 00:00 04/23/20 02:00 04/23/20 02:28 Temperature Pulse Rate 60 65 58 L Respiratory Rate 20 20 Blood Pressure Pulse Oximetry 94 94 04/23/20 04:00 04/23/20 04:52 04/23/20 06:00 Temperature 36.3 C L Pulse Rate 59 L 59 L 60 Respiratory Rate 18 18 Blood Pressure 158/72 H Pulse Oximetry 96 96 04/23/20 08:00 04/23/20 08:26 04/23/20 10:00 Temperature 36.6 C Pulse Rate 60 72 Respiratory Rate 24 H Blood Pressure 144/78 H Pulse Oximetry 90 92 04/23/20 11:25 04/23/20 11:51 04/23/20 12:00 Temperature 37.2 C Pulse Rate 65 70 Respiratory Rate 28 H Blood Pressure 153/78 H Pulse Oximetry 90 90 89 L Intake/Output Intake/Output: Intake & Output 04/20/20 04/21/20 04/22/20 04/23/20 23:59 23:59 23:59 23:59 Intake Total 1100 2680 1569 570 Output Total 1000 1600 1000 690 Balance 100 1080 569 -120 Meds/Results Medications: Active Medications Generic Name Dose Route Start Last Admin Trade Name Freq PRN Reason Stop Dose Admin Albuterol 2 puff 04/22/20 16:00 04/23/20 13:03 Albuterol Sulfate (*Sp) Inhaler INHALATION 2 puff QIDRT LEXIS Administration Benzonatate 200 mg 04/22/20 11:32 04/22/20 21:07 Benzonatate 100 Mg Capsule PO 200 mg TID PRN Administration Cough Dexamethasone Sodium Phosphate 6 mg 04/21/20 09:00 04/23/20 09:04 Dexamethasone Sod Phos Inj 4 Mg/Ml Vial IV PUSH 04/30/20 09:01 6 mg DAILY LEXIS Administration Enoxaparin Sodium 40 mg 04/22/20 09:00 04/23/20 09:03 Enoxaparin 40 Mg/0.4 Ml Syringe SUB-Q 40 mg Q12HR LEXIS Administration Remdesivir 100 mg in 250 mls @ 250 mls/hr 04/21/20 10:00 04/23/20 10:14 IVPB 04/24/20 10:01 Infused Q24H LEXIS Infusion Montelukast S
--- NOTE | 2020-04-23 14:12 | PC.NURSE ---
This patient, Sharee Robins, was transferred to ICU 1 on 04/23/20 at 1400. Personal belongings sent with patient. Report given to DAVID Whatley. Appropriate documentation and medication sent with patient. Family was updated.
[2020-04-23] MEDS: SODIUM CHLORIDE 0.9% IV 250 ML 30 ML IV CONT (20:20)
[2020-04-23] MEDS: MONTELUKAST SODIUM 10 MG TABLET PO (20:39)
[2020-04-24] VITALS (16 sets, daily range): BP systolic 114–143; BP diastolic 52–99; PULSE 56–80; RESP 21–38; TEMP 36.4–38; O2SAT 90–100
[2020-04-24 04:05] LABS: Hematocrit 37.3 % (37.0-47.0); Hemoglobin 12.3 g/dL (12.0-15.0); Mean Corpuscular Hemoglobin 27.1 pg (26-34); Mean Corpuscular Volume 82.2 fl (80-100); Mean Platelet Volume 10.1 fl (7.4-10.4); Platelet Count Result 191 k/mm3 (150-375); Red Blood Count 4.54 M/mm3 (4.2-5.4); Red Cell Distribution Width 13.2 % (11.5-14.5); White Blood Count 9.6 K/mm3 (4.5-10.0)
[2020-04-24 05:35] LABS: Alanine Aminotransferase 18 U/L (4-35); Albumin Level 2.8 g/dL (3.5-5.1); Alkaline Phosphatase 83 U/L (38-126); Anion Gap 2 mmol/L (8-16); Aspartate Amino Transferase 33 U/L (14-36); Bilirubin,Total 0.5 mg/dL (0.2-1.3); Blood Urea Nitrogen 20 mg/dL (7-17); Calcium 8.7 mg/dL (8.4-10.2); Carbon Dioxide 29 mmol/L (22-30); Chloride 101 mmol/L (98-107); Estimated CRCL calculation 79 ml/min; Estimated Glomerular Filt Rate > 60; Glucose 94 mg/dL (65-105); Lactate Dehydrogenase 926 U/L (313-618); Potassium 4.7 mmol/L (3.4-5.0); Sodium 132 mmol/L (137-145)
[2020-04-24] MEDS: PANTOPRAZOLE 40 MG TABLET PO (08:03)
[2020-04-24] MEDS: SERTRALINE HCL 50 MG TABLET 100 MG PO (08:04)
[2020-04-24] MEDS: BENZONATATE 100 MG CAPSULE 200 MG PO ×3 (08:04→21:00)
[2020-04-24] MEDS: ENOXAPARIN 40 MG/0.4 ML SYRINGE SUB-Q ×2 (08:04→20:57)
[2020-04-24] MEDS: DEXAMETHASONE SOD PHOS INJ 4 MG/ML VIAL 6 MG IV PUSH (08:04)
[2020-04-24] MEDS: ALBUTEROL SULFATE (*SP) INHALER 2 PUFF INHALATION ×4 (08:05→20:58)
[2020-04-24] MEDS: LIDOCAINE HCL 1% PF INJ 5 ML VIAL INFILTRATE (12:00)
[2020-04-24] MEDS: REMDESIVIR 100 MG/NS 250 ML 100 MG/250 ML BAG 250 MG IVPB (12:56)
[2020-04-24] MEDS: CENTRAL LINE FLUSH 10 ML IV PUSH ×2 (14:02→20:59)
--- NOTE | 2020-04-24 14:32 | WPDINTPN ---
Progress Note: A&P Assessment and Plan (1) Acute respiratory failure with hypoxia: Code(s): J96.01 - Acute respiratory failure with hypoxia Status: Acute Assessment and Plan: Acute Respiratory failure secondary to COVID-19 pneumonia Patient currently on high-flow nasal cannula with 60 L and 90% FiO2. She continues to be a borderline of further escalation and may need intubation Continue close ICU monitoring CXR shows persistent patchy bilateral airspace consolidation, consistent with pneumonia. CTA chest was done 04/23 due to elevated D-dimer level and was negative for PE and showed diffuse lung disease consistent with COVID-19 pneumonia Incentive spirometry, up in chair if patient tolerates I encouraged patient to lay prone as much as possible BNP 341 Incentive spirometry, up in chair to minimize atelectasis (2) Pneumonia due to 2019 novel coronavirus: Code(s): U07.1 - COVID-19; J12.82 - Pneumonia due to coronavirus disease 2019 Status: Acute Assessment and Plan: Patient is in Airborne, Droplet and Contact Isolation Continue dexamethasone , remdesivir started 04/21/20 Follow inflammatory periodically 04/23 - 1 unit of convalescent plasma (3) Asthma: Code(s): J45.909 - Unspecified asthma, uncomplicated Status: Acute Assessment and Plan: albuterol p.r.n. Systemic steroids -dexamethasone (4) DVT prophylaxis: Code(s): Z29.9 - Encounter for prophylactic measures, unspecified Status: Acute Assessment and Plan: lovenox q 12h Additional Plan DVT prophylaxis -patient on Lovenox q.12 hours Stress ulcer prophylaxis -PPI Code Status -patient wishes to be Full Code. She wants us to contact her sister Perri for decision making if she is unable to make decisions for herself Total Critical Care Time - 30minutes Due to a high probability of clinically significant, life threatening deterioration, the patient required my highest level of preparedness to intervene emergently and I personally spent this critical care time directly and personally managing the patient. This critical care time included obtaining a history; examining the patient; pulse oximetry; ordering and review of studies; arranging urgent treatment with development of a management plan; evaluation of patient's response to treatment; frequent reassessment; and discussions with other providers. It was exclusive of separately billable procedures and treating other patients and teaching time. Please see Assessment and Plan section and the rest of the note for further information on patient assessment and treatment Subjective Date/time seen: 04/24/20 14:32 Overnight events reviewed. Afebrile Continues to be on high-flow nasal cannula She states that her breathing is unchanged from yesterday. She laid in prone position for 4 hours yesterday. Still has cough and shortness of breath on exertion Vitals acceptable Review of Systems Review of Systems: All systems reviewed & are unremarkable except as noted in HPI and below (HPI) Exam Narrative: Exam Narrative: General: Pt is alert, anxious, awake and in NAD Lungs/Chest: Trachea central course BS B/L, No crackles or wheezing. Mild tachypnea but no respiratory distress Cardiac: RRR. Normal S1 S2. No murmurs Circulation: Pedal pulses are intact and symmetrical. Abdomen: Normal bowel sounds. Obese Soft. NT. ND. Extremities: No clubbing, cyanosis or edema. Warm : Goff in place Neurologic: Follows commands. Moves all 4 extremities PERRL alert oriented x3 Skin: No Rash Objective Data Vital Signs Vital Signs: Vital Signs - 24 hr 04/23/20 16:00 04/23/20 18:00 04/23/20 20:00 Temperature 37.1 C Pulse Rate 61 62 60 Respiratory Rate 32 H 30 H 30 H Blood Pressure 128/69 126/63 131/65 Pulse Oximetry 89 L 93 92 04/23/20 20:23 04/23/20 20:39 04/23/20 21:21 Temperature 37.1 C 36.9 C 37.1 C Pulse Rate 64 81 77 Respiratory Rate 29 H 28 H 27 H Bloo
[2020-04-24] MEDS: MONTELUKAST SODIUM 10 MG TABLET PO (20:58)
[2020-04-25] VITALS (18 sets, daily range): BP systolic 109–151; BP diastolic 59–85; PULSE 53–80; RESP 24–35; TEMP 36.6–36.9; O2SAT 89–100
[2020-04-25] MEDS: BENZONATATE 100 MG CAPSULE 200 MG PO ×2 (06:00→20:30)
[2020-04-25] MEDS: CENTRAL LINE FLUSH 10 ML IV PUSH ×3 (06:00→20:29)
[2020-04-25 06:28] LABS: Hematocrit 34.1 % (37.0-47.0); Hemoglobin 11.2 g/dL (12.0-15.0); Mean Corpuscular HGB Conc 32.8 g/dl (32-36); Mean Corpuscular Hemoglobin 26.7 pg (26-34); Mean Corpuscular Volume 81.2 fl (80-100); Mean Platelet Volume 10.6 fl (7.4-10.4); Platelet Count Result 204 k/mm3 (150-375); Red Cell Distribution Width 13.2 % (11.5-14.5); White Blood Count 10.4 K/mm3 (4.5-10.0)
[2020-04-25 06:33] LABS: Alanine Aminotransferase 20 U/L (4-35); Albumin Level 2.7 g/dL (3.5-5.1); Alkaline Phosphatase 72 U/L (38-126); Anion Gap 3 mmol/L (8-16); Aspartate Amino Transferase 32 U/L (14-36); Bilirubin,Total 0.7 mg/dL (0.2-1.3); Blood Urea Nitrogen 21 mg/dL (7-17); Calcium 8.3 mg/dL (8.4-10.2); Carbon Dioxide 29 mmol/L (22-30); Chloride 101 mmol/L (98-107); Estimated CRCL calculation 67 ml/min; Estimated Glomerular Filt Rate > 60; Glucose 108 mg/dL (65-105); Magnesium 2.1 mg/dL (1.6-2.3); Potassium 4.3 mmol/L (3.4-5.0); Sodium 133 mmol/L (137-145)
[2020-04-25] MEDS: ALBUTEROL SULFATE (*SP) INHALER 2 PUFF INHALATION ×4 (08:55→20:29)
[2020-04-25] MEDS: DEXAMETHASONE SOD PHOS INJ 4 MG/ML VIAL 6 MG IV PUSH (08:56)
[2020-04-25] MEDS: ENOXAPARIN 40 MG/0.4 ML SYRINGE SUB-Q ×2 (08:57→20:30)
[2020-04-25] MEDS: PANTOPRAZOLE 40 MG TABLET PO (08:57)
[2020-04-25] MEDS: SERTRALINE HCL 50 MG TABLET 100 MG PO (08:57)
--- NOTE | 2020-04-25 09:49 | WPDINTPN ---
Progress Note: A&P Assessment and Plan (1) Acute respiratory failure with hypoxia: Code(s): J96.01 - Acute respiratory failure with hypoxia Status: Acute Assessment and Plan: Acute Respiratory failure secondary to COVID-19 pneumonia Patient currently on high-flow nasal cannula with 60 L and 90% FiO2. She continues to be a borderline of further escalation and may need intubation Continue close ICU monitoring CXR shows stable and persistent patchy bilateral airspace consolidation, consistent with pneumonia. CTA chest was done 04/23 due to elevated D-dimer level and was negative for PE and showed diffuse lung disease consistent with COVID-19 pneumonia Incentive spirometry, up in chair if patient tolerates I encouraged patient to lay prone as much as possible BNP 341 Incentive spirometry, up in chair to minimize atelectasis (2) Pneumonia due to 2019 novel coronavirus: Code(s): U07.1 - COVID-19; J12.82 - Pneumonia due to coronavirus disease 2019 Status: Acute Assessment and Plan: Patient is in Airborne, Droplet and Contact Isolation Continue dexamethasone , remdesivir started 04/21/20 Follow inflammatory periodically 04/23 - 1 unit of convalescent plasma (3) Asthma: Code(s): J45.909 - Unspecified asthma, uncomplicated Status: Acute Assessment and Plan: albuterol p.r.n. Systemic steroids -dexamethasone (4) DVT prophylaxis: Code(s): Z29.9 - Encounter for prophylactic measures, unspecified Status: Acute Assessment and Plan: lovenox q 12h Additional Plan DVT prophylaxis -patient on Lovenox q.12 hours Stress ulcer prophylaxis -PPI Code Status -patient wishes to be Full Code. She wants us to contact her sister Perri for decision making if she is unable to make decisions for herself Total Critical Care Time - 31 minutes Due to a high probability of clinically significant, life threatening deterioration, the patient required my highest level of preparedness to intervene emergently and I personally spent this critical care time directly and personally managing the patient. This critical care time included obtaining a history; examining the patient; pulse oximetry; ordering and review of studies; arranging urgent treatment with development of a management plan; evaluation of patient's response to treatment; frequent reassessment; and discussions with other providers. It was exclusive of separately billable procedures and treating other patients and teaching time. Please see Assessment and Plan section and the rest of the note for further information on patient assessment and treatment Subjective Date/time seen: 04/25/20 0845 Overnight events reviewed. Afebrile Continues to be on high-flow nasal cannula and non-rebreather mask She feels her breathing is unchanged as compared to yesterday. She denies any cough. She slept well overnight. She was unable to lay on her belly yesterday but did sit in chair for most of the day Vitals acceptable Urine output is adequate Patient denies fever, chest pain, cough, nausea, vomiting, abdominal pain, diarrhea, headache or constipation. Review of Systems Review of Systems: All systems reviewed & are unremarkable except as noted in HPI and below (HPI) Exam Narrative: Exam Narrative: General: Pt is alert, anxious, awake and in NAD Lungs/Chest: Trachea central course BS B/L, No crackles or wheezing. Mild tachypnea but no respiratory distress Cardiac: RRR. Normal S1 S2. No murmurs Circulation: Pedal pulses are intact and symmetrical. Abdomen: Normal bowel sounds. Obese Soft. NT. ND. Extremities: No clubbing, cyanosis or edema. Warm : Goff in place Neurologic: Follows commands. Moves all 4 extremities PERRL alert oriented x3 Skin: No Rash Objective Data Vital Signs Vital Signs: Vital Signs - 24 hr 04/24/20 09:50 04/24/20 10:00 04/24/20 11:31 Temperature Pulse Rate 74 78 Respiratory Rate 26 H 34 H Blood Pres
[2020-04-25] MEDS: MONTELUKAST SODIUM 10 MG TABLET PO (20:30)
[2020-04-26] VITALS (21 sets, daily range): BP systolic 129–146; BP diastolic 56–79; PULSE 57–75; RESP 22–33; TEMP 36–37.2; O2SAT 90–100
[2020-04-26] MEDS: CENTRAL LINE FLUSH 10 ML IV PUSH ×3 (05:48→20:23)
[2020-04-26 06:03] LABS: Hematocrit 32.7 % (37.0-47.0); Hemoglobin 10.8 g/dL (12.0-15.0); Mean Corpuscular Hemoglobin 26.7 pg (26-34); Mean Corpuscular Volume 80.9 fl (80-100); Mean Platelet Volume 10.7 fl (7.4-10.4); Platelet Count Result 222 k/mm3 (150-375); Red Blood Count 4.04 M/mm3 (4.2-5.4); Red Cell Distribution Width 13.2 % (11.5-14.5); White Blood Count 10.2 K/mm3 (4.5-10.0)
[2020-04-26 06:17] LABS: Alanine Aminotransferase 21 U/L (4-35); Albumin Level 2.7 g/dL (3.5-5.1); Alkaline Phosphatase 71 U/L (38-126); Anion Gap 0 mmol/L (8-16); Aspartate Amino Transferase 30 U/L (14-36); Bilirubin,Total 0.5 mg/dL (0.2-1.3); Blood Urea Nitrogen 19 mg/dL (7-17); Calcium 8.7 mg/dL (8.4-10.2); Carbon Dioxide 32 mmol/L (22-30); Chloride 100 mmol/L (98-107); Estimated CRCL calculation 77 ml/min; Estimated Glomerular Filt Rate > 60; Glucose 111 mg/dL (65-105); Lactate Dehydrogenase 687 U/L (313-618); Magnesium 2.1 mg/dL (1.6-2.3); Potassium 4.6 mmol/L (3.4-5.0); Sodium 132 mmol/L (137-145)
[2020-04-26] MEDS: ENOXAPARIN 40 MG/0.4 ML SYRINGE SUB-Q ×2 (08:40→20:23)
[2020-04-26] MEDS: SERTRALINE HCL 50 MG TABLET 100 MG PO (08:40)
[2020-04-26] MEDS: DEXAMETHASONE SOD PHOS INJ 4 MG/ML VIAL 6 MG IV PUSH (08:40)
[2020-04-26] MEDS: PANTOPRAZOLE 40 MG TABLET PO (08:41)
[2020-04-26] MEDS: ALBUTEROL SULFATE (*SP) INHALER 2 PUFF INHALATION ×2 (08:41→12:25)
[2020-04-26] MEDS: BENZONATATE 100 MG CAPSULE 200 MG PO ×2 (08:41→20:22)
--- NOTE | 2020-04-26 09:58 | WPDINTPN ---
Progress Note: A&P Assessment and Plan (1) Acute respiratory failure with hypoxia: Code(s): J96.01 - Acute respiratory failure with hypoxia Status: Acute Assessment and Plan: Acute Respiratory failure secondary to COVID-19 pneumonia Patient desaturated overnight and had to be placed on BiPAP 10/5 with improvement in saturation. She is obese and may have undiagnosed sleep apnea complicating the situation. I switched her back to high-flow nasal cannula with 60 L and 90% FiO2 this morning and she maintained a saturation. I spoke to patient and will continue with high-flow nasal cannula during the day and will switch to BiPAP when she sleeps during the day or at night She continues to be a borderline of further escalation and may need intubation. Continue close ICU monitoring CXR shows stable and persistent patchy bilateral airspace consolidation, consistent with pneumonia. CTA chest was done 04/23 due to elevated D-dimer level and was negative for PE and showed diffuse lung disease consistent with COVID-19 pneumonia I encouraged patient to lay prone as much as possible but she has not been able to do it over last few days BNP 341 Incentive spirometry, up in chair to minimize atelectasis (2) Pneumonia due to 2019 novel coronavirus: Code(s): U07.1 - COVID-19; J12.82 - Pneumonia due to coronavirus disease 2019 Status: Acute Assessment and Plan: Patient is in Airborne, Droplet and Contact Isolation Continue dexamethasone , remdesivir started 04/21/20 Follow inflammatory periodically 04/23 - 1 unit of convalescent plasma (3) Asthma: Code(s): J45.909 - Unspecified asthma, uncomplicated Status: Acute Assessment and Plan: albuterol p.r.n. Systemic steroids -dexamethasone (4) DVT prophylaxis: Code(s): Z29.9 - Encounter for prophylactic measures, unspecified Status: Acute Assessment and Plan: lovenox q 12h Additional Plan DVT prophylaxis -patient on Lovenox q.12 hours Stress ulcer prophylaxis -PPI Code Status -patient wishes to be Full Code. She wants us to contact her sister Perri for decision making if she is unable to make decisions for herself Total Critical Care Time - 30 minutes Due to a high probability of clinically significant, life threatening deterioration, the patient required my highest level of preparedness to intervene emergently and I personally spent this critical care time directly and personally managing the patient. This critical care time included obtaining a history; examining the patient; pulse oximetry; ordering and review of studies; arranging urgent treatment with development of a management plan; evaluation of patient's response to treatment; frequent reassessment; and discussions with other providers. It was exclusive of separately billable procedures and treating other patients and teaching time. Please see Assessment and Plan section and the rest of the note for further information on patient assessment and treatment Subjective Date/time seen: 04/26/20 0845 Overnight events reviewed. Patient was desaturating at night when she was sleeping and was placed on BiPAP with improvement in saturation She does not feel any different as compared to yesterday and feels her breathing is unchanged. She states she does have some cough but is unable to cough anything out Also complains of nasal congestion. She is unable to lay in prone position but does sit in a chair during the day Patient denies fever, chest pain, nausea vomiting, abdominal pain,, diarrhea, headache or constipation. Review of Systems Review of Systems: All systems reviewed & are unremarkable except as noted in HPI and below (HPI) Exam Narrative: Exam Narrative: General: Pt is alert, anxious, awake and in NAD Lungs/Chest: Trachea central course BS B/L, No crackles or wheezing. Mild tachypnea but no respiratory distress Cardiac: RRR. Normal S1 S2. No murmurs Circulation: Pedal pulses a
--- NOTE | 2020-04-26 16:19 | PM.IMPN ---
Progress Note: A&P Assessment and Plan (1) Pneumonia due to 2019 novel coronavirus: Code(s): U07.1 - COVID-19; J12.82 - Pneumonia due to coronavirus disease 2019 Status: Acute Assessment and Plan: Finished Remdesivir 04/25 and Dexamethasone D#6 CTA 04/23 covid only no PE (2) Asthma: Code(s): J45.909 - Unspecified asthma, uncomplicated Status: Acute Assessment and Plan: albuterol and Systemic steroids (3) Acute respiratory failure with hypoxia: Code(s): J96.01 - Acute respiratory failure with hypoxia Status: Acute Assessment and Plan: secondary to covid pna. was on high flow NC early am 04/23 but later that morning 02 requirements went up rapidly and patient was transferred to ICU for closer observation and possible impending intubation . CTA no emboli and bnp just above 300 (4) DVT prophylaxis: Code(s): Z29.9 - Encounter for prophylactic measures, unspecified Status: Acute Assessment and Plan: lovenox q 12h Subjective Date/time seen: 04/26/20 16:19 Interval history: Date of visit 04/26 70-year-old female admitted with respiratory failure and COVID pneumonia. Symptoms started 04/11/2020 and + swab 04/15. Presently finished remdesivir 04/25 And continues dexamethasone but was beyond the window for convalescent plasma(although given in ICU 04/23). She states is still short of breath and still coughing some with congestion Exam Narrative: Exam Narrative: Blood pressure 130/60 pulse 66 respirations 26 per minute saturating 96% on airvo at 60 with FIO2 90%(had bipap last pm with desat) sitting in chair and comfortable Pupils equal reactive light Lungs faint left basilar crackles and some on the right no wheezing CV no murmurs or gallops Abdomen soft nontender Extremities without edema good distal pulses Neuro alert cooperative no focal deficits Objective Data Vital Signs Vital Signs: Vital Signs - 24 hr 04/25/20 18:00 04/25/20 20:00 04/25/20 22:00 Temperature 36.7 C 36.9 C Pulse Rate 66 62 64 Respiratory Rate 35 H 28 H 34 H Blood Pressure 130/59 L 124/63 109/85 Pulse Oximetry 95 89 L 96 04/25/20 23:42 04/26/20 00:00 04/26/20 02:00 Temperature 36.6 C Pulse Rate 62 63 59 L Respiratory Rate 28 H 26 H Blood Pressure 123/73 138/72 Pulse Oximetry 96 96 100 04/26/20 02:39 04/26/20 04:00 04/26/20 06:00 Temperature 36.0 C L Pulse Rate 59 L 60 57 L Respiratory Rate 24 H 28 H 27 H Blood Pressure 137/65 137/68 Pulse Oximetry 93 96 96 04/26/20 08:00 04/26/20 08:11 04/26/20 08:45 Temperature 36.6 C Pulse Rate 72 62 62 Respiratory Rate 24 H 28 H 30 H Blood Pressure 140/67 Pulse Oximetry 95 96 96 04/26/20 09:53 04/26/20 10:00 04/26/20 10:45 Temperature Pulse Rate 66 61 62 Respiratory Rate 30 H 28 H Blood Pressure 139/61 Pulse Oximetry 94 93 04/26/20 12:00 04/26/20 14:00 04/26/20 15:38 Temperature 36.8 C Pulse Rate 60 67 Respiratory Rate 28 H 24 H Blood Pressure 129/58 L 129/56 L Pulse Oximetry 95 96 94 Intake/Output Intake/Output: Intake & Output 04/23/20 04/24/20 04/25/20 04/26/20 23:59 23:59 23:59 23:59 Intake Total 888 760 540 250 Output Total 1140 1075 825 450 Balance -252 -315 -285 -200 Meds/Results Medications: Active Medications Generic Name Dose Route Start Last Admin Trade Name Freq PRN Reason Stop Dose Admin Albuterol 2.5 mg 04/26/20 20:00 Albuterol Sulfate Neb 2.5 Mg/0.5 Ml Inh INHALATION Q6HRT LEXIS Benzonatate 200 mg 04/22/20 11:32 04/26/20 08:41 Benzonatate 100 Mg Capsule PO 200 mg TID PRN Administration Cough Dexamethasone Sodium Phosphate 6 mg 04/21/20 09:00 04/26/20 08:40 Dexamethasone Sod Phos Inj 4 Mg/Ml Vial IV PUSH 04/30/20 09:01 6 mg DAILY LEXIS Administration Enoxaparin Sodium 40 mg 04/22/20 09:00 04/26/20 08:40 Enoxaparin 40 Mg/0.4 Ml Syringe SUB-Q 40 mg Q12HR LEXIS Administration Montelukast Sodium
[2020-04-26] MEDS: ALBUTEROL SULFATE NEB 2.5 MG/0.5 ML INH INHALATION (20:10)
[2020-04-26] MEDS: MONTELUKAST SODIUM 10 MG TABLET PO (20:22)
[2020-04-27] VITALS (23 sets, daily range): BP systolic 116–148; BP diastolic 58–85; PULSE 53–92; RESP 22–38; TEMP 36.2–36.5; O2SAT 90–98
[2020-04-27] MEDS: ALBUTEROL SULFATE NEB 2.5 MG/0.5 ML INH INHALATION ×4 (02:16→21:28)
[2020-04-27] MEDS: CENTRAL LINE FLUSH 10 ML IV PUSH ×3 (05:17→21:43)
[2020-04-27 05:30] LABS: Hematocrit 32.9 % (37.0-47.0); Hemoglobin 10.9 g/dL (12.0-15.0); Mean Corpuscular HGB Conc 33.1 g/dl (32-36); Mean Corpuscular Volume 81.4 fl (80-100); Platelet Count Result 231 k/mm3 (150-375); Red Blood Count 4.04 M/mm3 (4.2-5.4); Red Cell Distribution Width 13.2 % (11.5-14.5); White Blood Count 11.7 K/mm3 (4.5-10.0)
[2020-04-27 05:44] LABS: Alanine Aminotransferase 22 U/L (4-35); Albumin Level 2.8 g/dL (3.5-5.1); Alkaline Phosphatase 71 U/L (38-126); Anion Gap 1 mmol/L (8-16); Aspartate Amino Transferase 29 U/L (14-36); Bilirubin,Total 0.4 mg/dL (0.2-1.3); Blood Urea Nitrogen 20 mg/dL (7-17); Calcium 8.6 mg/dL (8.4-10.2); Carbon Dioxide 30 mmol/L (22-30); Chloride 100 mmol/L (98-107); Estimated CRCL calculation 67 ml/min; Estimated Glomerular Filt Rate > 60; Glucose 105 mg/dL (65-105); Potassium 4.5 mmol/L (3.4-5.0); Sodium 131 mmol/L (137-145)
[2020-04-27] MEDS: ENOXAPARIN 40 MG/0.4 ML SYRINGE SUB-Q ×2 (09:29→21:43)
[2020-04-27] MEDS: BENZONATATE 100 MG CAPSULE 200 MG PO ×2 (09:29→21:41)
[2020-04-27] MEDS: DEXAMETHASONE SOD PHOS INJ 4 MG/ML VIAL 6 MG IV PUSH (09:29)
[2020-04-27] MEDS: SERTRALINE HCL 50 MG TABLET 100 MG PO (09:30)
[2020-04-27] MEDS: PANTOPRAZOLE 40 MG TABLET PO (09:30)
[2020-04-27] MEDS: SALINE 0.65% NAS SOLN 44 ML BTL 1 SPRAY NASAL (09:31)
[2020-04-27] MEDS: OXYMETAZOLINE HCL 0.05% NAS 15 ML BTL (*BKC) 1 SPRAY NASAL (09:31)
--- NOTE | 2020-04-27 09:34 | WPDINTPN ---
Progress Note: A&P Assessment and Plan (1) Acute respiratory failure with hypoxia: Code(s): J96.01 - Acute respiratory failure with hypoxia Status: Acute Assessment and Plan: Acute Respiratory failure secondary to COVID-19 pneumonia Continue current oxygen strategy of using high-flow nasal cannula and non-rebreather mask during the day and BiPAP at night or whenever patient's leaves to counter affects of possible of obstructive sleep apnea. She is tolerating BiPAP and will last night for many hours. She is saturating 95% this morning with no respiratory distress although she is still having mild tachypnea. She is on high-flow nasal cannula with 60 L and 90% FiO2 this morning She continues to be a borderline of further escalation and may need intubation. Continue close ICU monitoring CXR shows stable and persistent patchy bilateral airspace consolidation, consistent with pneumonia. CTA chest was done 04/23 due to elevated D-dimer level and was negative for PE and showed diffuse lung disease consistent with COVID-19 pneumonia I encouraged patient to lay prone as much as possible but she has not been able to do it over last few days BNP was 341 Incentive spirometry, up in chair to minimize atelectasis (2) Pneumonia due to 2019 novel coronavirus: Code(s): U07.1 - COVID-19; J12.82 - Pneumonia due to coronavirus disease 2019 Status: Acute Assessment and Plan: Patient is in Airborne, Droplet and Contact Isolation Continue dexamethasone started 04/21/20 Completed course of remdesivir Follow inflammatory periodically 04/23 - 1 unit of convalescent plasma (3) Asthma: Code(s): J45.909 - Unspecified asthma, uncomplicated Status: Acute Assessment and Plan: albuterol p.r.n. Systemic steroids -dexamethasone (4) DVT prophylaxis: Code(s): Z29.9 - Encounter for prophylactic measures, unspecified Status: Acute Assessment and Plan: lovenox q 12h (5) Cough: Code(s): R05 - Cough Status: Acute Assessment and Plan: Continue Tessalon Brittaney Added Robitussin DM Additional Plan DVT prophylaxis -patient on Lovenox q.12 hours Stress ulcer prophylaxis -PPI Code Status -patient wishes to be Full Code. She wants us to contact her sister Perri for decision making if she is unable to make decisions for herself Total Critical Care Time - 31 minutes Due to a high probability of clinically significant, life threatening deterioration, the patient required my highest level of preparedness to intervene emergently and I personally spent this critical care time directly and personally managing the patient. This critical care time included obtaining a history; examining the patient; pulse oximetry; ordering and review of studies; arranging urgent treatment with development of a management plan; evaluation of patient's response to treatment; frequent reassessment; and discussions with other providers. It was exclusive of separately billable procedures and treating other patients and teaching time. Please see Assessment and Plan section and the rest of the note for further information on patient assessment and treatment Subjective Date/time seen: 04/27/20 09:34 Patient wore BiPAP overnight for few hours and is now back on high-flow nasal cannula and non-rebreather. She feels her breathing is marginally better than yesterday but no significant improvement. Continues to have cough and nasal congestion. Cough is mostly dry. Denies any fever. Sat in chair yesterday. Appetite and p.o. intake is adequate as per her Patient denies chest pain, nausea vomiting, abdominal pain, diarrhea, headache or constipation. All other systems were reviewed and were negative Interval history: 70-year-old female admitted with respiratory failure and COVID pneumonia. Symptoms started 04/11/2020 and + swab 04/15. Review of Systems Review of Systems: All systems reviewed & are unremarkable except
[2020-04-27] MEDS: guaiFENesin/DEXTROMETHORPHAN 10 ML UDC PO ×3 (12:02→21:50)
--- NOTE | 2020-04-27 13:29 | PM.IMPN ---
Progress Note: A&P Assessment and Plan (1) Pneumonia due to 2019 novel coronavirus: Code(s): U07.1 - COVID-19; J12.82 - Pneumonia due to coronavirus disease 2019 Status: Acute Assessment and Plan: Finished Remdesivir 04/25 and Dexamethasone D#8 CTA 04/23 covid only no PE inflammatory markers 04/26 stable to decreasing (2) Asthma: Code(s): J45.909 - Unspecified asthma, uncomplicated Status: Acute Assessment and Plan: albuterol and Systemic steroids (3) Acute respiratory failure with hypoxia: Code(s): J96.01 - Acute respiratory failure with hypoxia Status: Acute Assessment and Plan: secondary to covid pna. was on high flow NC early am 04/23 but later that morning 02 requirements went up rapidly and patient was transferred to ICU for closer observation and possible impending intubation . CTA no emboli and bnp just above 300 (4) DVT prophylaxis: Code(s): Z29.9 - Encounter for prophylactic measures, unspecified Status: Acute Assessment and Plan: lovenox q 12h Subjective Date/time seen: 04/27/20 13:29 Interval history: Date of visit 04/27 70-year-old female admitted with respiratory failure and COVID pneumonia. Symptoms started 04/11/2020 and + swab 04/15. finished remdesivir 04/25 And continues dexamethasone but was beyond the window for convalescent plasma(although given in ICU 04/23). She states is still short of breath and still coughing some with congestion but feels better Exam Narrative: Exam Narrative: Blood pressure 120/72 pulse 66 respirations 26 per minute saturating 94% on airvo at 60 with FIO2 90%(had bipap last pm ) sitting in chair and comfortable and eating lunch Pupils equal reactive light Lungs very faint left basilar crackles and some on the right no wheezing CV no murmurs or gallops Abdomen soft nontender Extremities without edema good distal pulses Neuro alert cooperative no focal deficits Objective Data Vital Signs Vital Signs: Vital Signs - 24 hr 04/26/20 14:00 04/26/20 15:38 04/26/20 16:00 Temperature 36.8 C Pulse Rate 67 65 Respiratory Rate 24 H 22 H Blood Pressure 129/56 L 135/58 L Pulse Oximetry 96 94 96 04/26/20 17:39 04/26/20 18:00 04/26/20 20:00 Temperature 37.2 C Pulse Rate 65 64 68 Respiratory Rate 22 H 33 H Blood Pressure 134/62 146/68 H Pulse Oximetry 95 97 04/26/20 20:13 04/26/20 20:14 04/26/20 22:00 Temperature Pulse Rate 64 67 59 L Respiratory Rate 25 H 25 H 24 H Blood Pressure 139/79 Pulse Oximetry 97 98 04/27/20 00:00 04/27/20 00:30 04/27/20 02:00 Temperature 36.5 C Pulse Rate 62 55 L 53 L Respiratory Rate 30 H 26 H 26 H Blood Pressure 148/70 H 133/63 Pulse Oximetry 96 97 97 04/27/20 02:15 04/27/20 04:00 04/27/20 06:00 Temperature Pulse Rate 70 56 L 56 L Respiratory Rate 25 H 29 H 29 H Blood Pressure 134/58 L 134/58 L Pulse Oximetry 98 98 04/27/20 07:39 04/27/20 07:55 04/27/20 08:00 Temperature 36.2 C L Pulse Rate 58 L 66 Respiratory Rate 23 H 24 H Blood Pressure 127/58 L Pulse Oximetry 90 94 04/27/20 08:01 04/27/20 08:15 04/27/20 10:00 Temperature Pulse Rate 66 70 60 Respiratory Rate 27 H 38 H 29 H Blood Pressure 126/63 Pulse Oximetry 90 97 04/27/20 10:49 04/27/20 12:00 Temperature Pulse Rate 62 64 Respiratory Rate 29 H 30 H Blood Pressure 120/73 Pulse Oximetry 97 94 Intake/Output Intake/Output: Intake & Output 04/24/20 04/25/20 04/26/20 04/27/20 23:59 23:59 23:59 23:59 Intake Total 760 540 610 Output Total 1075 825 900 400 Balance -315 -285 -290 -400 Meds/Results Medications: Active Medications Generic Name Dose Route Start Last Admin Trade Name Freq PRN Reason Stop Dose Admin Albuterol 2.5 mg 04/26/20 20:00 04/27/20 07:40 Albuterol Sulfate Neb 2.5 Mg/0.5 Ml Inh INHALATION 2.5 mg Q6HRT LEXIS Administration Benzonatate 200 mg 04/22/20 11:32 04/27/20 09:29 Benzonatate
[2020-04-27] MEDS: MONTELUKAST SODIUM 10 MG TABLET PO (21:41)
[2020-04-28] VITALS (27 sets, daily range): BP systolic 90–134; BP diastolic 55–75; PULSE 50–74; RESP 21–36; TEMP 36.3–36.8; O2SAT 91–97; BMI 36.8
[2020-04-28] MEDS: ALBUTEROL SULFATE NEB 2.5 MG/0.5 ML INH INHALATION ×4 (03:31→19:23)
[2020-04-28 05:25] LABS: Hematocrit 33.8 % (37.0-47.0); Mean Corpuscular HGB Conc 32.5 g/dl (32-36); Mean Corpuscular Hemoglobin 27.1 pg (26-34); Mean Corpuscular Volume 83.3 fl (80-100); Mean Platelet Volume 10.6 fl (7.4-10.4); Platelet Count Result 236 k/mm3 (150-375); Red Blood Count 4.06 M/mm3 (4.2-5.4); Red Cell Distribution Width 13.4 % (11.5-14.5); White Blood Count 10.8 K/mm3 (4.5-10.0)
[2020-04-28 05:50] LABS: Alanine Aminotransferase 28 U/L (4-35); Albumin Level 2.8 g/dL (3.5-5.1); Alkaline Phosphatase 78 U/L (38-126); Anion Gap 0 mmol/L (8-16); Aspartate Amino Transferase 36 U/L (14-36); Bilirubin,Total 0.4 mg/dL (0.2-1.3); Blood Urea Nitrogen 19 mg/dL (7-17); Calcium 8.7 mg/dL (8.4-10.2); Carbon Dioxide 32 mmol/L (22-30); Chloride 99 mmol/L (98-107); Estimated CRCL calculation 77 ml/min; Estimated Glomerular Filt Rate > 60; Glucose 91 mg/dL (65-105); Lactate Dehydrogenase 633 U/L (313-618); Potassium 4.3 mmol/L (3.4-5.0); Sodium 131 mmol/L (137-145)
[2020-04-28] MEDS: CENTRAL LINE FLUSH 10 ML IV PUSH ×3 (07:39→22:21)
[2020-04-28] MEDS: DEXAMETHASONE SOD PHOS INJ 4 MG/ML VIAL 6 MG IV PUSH (08:12)
[2020-04-28] MEDS: SERTRALINE HCL 50 MG TABLET 100 MG PO (08:12)
[2020-04-28] MEDS: ENOXAPARIN 40 MG/0.4 ML SYRINGE SUB-Q ×2 (08:12→20:43)
[2020-04-28] MEDS: PANTOPRAZOLE 40 MG TABLET PO (08:12)
[2020-04-28] MEDS: guaiFENesin/DEXTROMETHORPHAN 10 ML UDC PO ×4 (08:13→20:43)
[2020-04-28] MEDS: BENZONATATE 100 MG CAPSULE 200 MG PO ×3 (08:13→16:31)
--- NOTE | 2020-04-28 12:13 | WPDINTPN ---
Progress Note: A&P Assessment and Plan (1) Acute respiratory failure with hypoxia: Code(s): J96.01 - Acute respiratory failure with hypoxia Status: Acute Assessment and Plan: Acute Respiratory failure secondary to COVID-19 pneumonia Currently on BiPAP, 100% FiO2, will try and switch to high-flow nasal therapy at some point. -O2 sats have been adequate without any respiratory distress -continue Tessalon Perles and guaifenesin for cough, I scheduled these medications -patient continues to be high oxygen requirements, patient may require intubation and mechanical ventilation to which she agrees. -bilateral airspace disease which are unchanged CTA chest was done 04/23 due to elevated D-dimer level and was negative for PE and showed diffuse lung disease consistent with COVID-19 pneumonia Patient was encouraged to lay prone as much as possible but she has not been able to do it over last few days BNP was 341 Incentive spirometry, up in chair to minimize atelectasis (2) Pneumonia due to 2019 novel coronavirus: Code(s): U07.1 - COVID-19; J12.82 - Pneumonia due to coronavirus disease 2019 Status: Acute Assessment and Plan: Patient is in Airborne, Droplet and Contact Isolation Continue dexamethasone started 04/21/20 Completed course of remdesivir Follow inflammatory periodically 04/23 - 1 unit of convalescent plasma (3) Asthma: Code(s): J45.909 - Unspecified asthma, uncomplicated Status: Acute Assessment and Plan: albuterol p.r.n. Systemic steroids -dexamethasone (4) DVT prophylaxis: Code(s): Z29.9 - Encounter for prophylactic measures, unspecified Status: Acute Assessment and Plan: lovenox q 12h (5) Cough: Code(s): R05 - Cough Status: Acute Assessment and Plan: Continue Tessalon Perles Continue Robitussin DM -both the medications have been scheduled Additional Plan DVT prophylaxis -patient on Lovenox q.12 hours Stress ulcer prophylaxis -PPI Code Status -patient wishes to be Full Code. She wants us to contact her sister Perri for decision making if she is unable to make decisions for herself Total Critical Care Time - 33 minutes Due to a high probability of clinically significant, life threatening deterioration, the patient required my highest level of preparedness to intervene emergently and I personally spent this critical care time directly and personally managing the patient. This critical care time included obtaining a history; examining the patient; pulse oximetry; ordering and review of studies; arranging urgent treatment with development of a management plan; evaluation of patient's response to treatment; frequent reassessment; and discussions with other providers. It was exclusive of separately billable procedures and treating other patients and teaching time. Please see Assessment and Plan section and the rest of the note for further information on patient assessment and treatment Subjective Date/time seen: 04/28/20 12:14 Interval history: 70-year-old female admitted with respiratory failure and COVID pneumonia. Symptoms started 04/11/2020 and positive COVID-19 swab 04/15. - Presently finished remdesivir 04/2504/28/2020: Patient seen and examined, remains on BiPAP overnight and this morning. Requiring 100% FiO2, desaturates upon removing BiPAP patient states she feels okay, denies any severe shortness of breath, loss of taste or smell, chest pain, abdominal pain, nausea vomiting. Patient does have episodes of coughing and switched her anti tussive medications to scheduled. Review of Systems Review of Systems: All systems reviewed & are unremarkable except as noted in HPI and below (HPI) Exam Narrative: Exam Narrative: General: Pt is alert, awake and in NAD Lungs/Chest: Trachea central course BS B/L, No crackles or wheezing. Mild tachypnea but no respiratory distress, BiPAP in place Cardiac: RRR. Normal S1 S2. No murmur
--- NOTE | 2020-04-28 17:06 | PM.IMPN ---
Progress Note: A&P Assessment and Plan (1) Pneumonia due to 2019 novel coronavirus: Code(s): U07.1 - COVID-19; J12.82 - Pneumonia due to coronavirus disease 2019 Status: Acute Assessment and Plan: Finished Remdesivir 04/25 and Dexamethasone D#8 CTA 04/23 covid only no PE inflammatory markers 04/28 today stable to decreasing (2) Asthma: Code(s): J45.909 - Unspecified asthma, uncomplicated Status: Acute Assessment and Plan: albuterol and Systemic steroids (3) Acute respiratory failure with hypoxia: Code(s): J96.01 - Acute respiratory failure with hypoxia Status: Acute Assessment and Plan: secondary to covid pna. was on high flow NC early am 04/23 but later that morning 02 requirements went up rapidly and patient was transferred to ICU for closer observation and possible impending intubation . CTA no emboli and bnp just above 300 FI02 on airvow downt to 80% today (4) DVT prophylaxis: Code(s): Z29.9 - Encounter for prophylactic measures, unspecified Status: Acute Assessment and Plan: lovenox q 12h Subjective Date/time seen: 04/28/20 17:06 Interval history: Date of visit 04/28 70-year-old female admitted with respiratory failure and COVID pneumonia. Symptoms started 04/11/2020 and + swab 04/15. finished remdesivir 04/25 And continues dexamethasone but was beyond the window for convalescent plasma(although given in ICU 04/23). She states is still short of breath and still coughing some with congestion but feels better in general , slept ok Exam Narrative: Exam Narrative: Blood pressure 114/60 pulse 68 respirations 26 per minute saturating 92% on airvo at 60 with FIO2 80%(had bipap last pm ) lying comfortable in bed Pupils equal reactive light Lungs decrease BS but appear clear CV no murmurs or gallops Abdomen soft nontender Extremities without edema good distal pulses Neuro alert cooperative no focal deficits Objective Data Vital Signs Vital Signs: Vital Signs - 24 hr 04/27/20 18:00 04/27/20 20:00 04/27/20 21:29 Temperature 36.4 C L Pulse Rate 62 62 60 Respiratory Rate 30 H 28 H 25 H Blood Pressure 116/66 116/85 Pulse Oximetry 93 96 04/27/20 21:37 04/27/20 22:00 04/28/20 00:00 Temperature 36.3 C L Pulse Rate 63 64 57 L Respiratory Rate 24 H 22 H 27 H Blood Pressure 131/60 130/66 Pulse Oximetry 96 94 96 04/28/20 00:20 04/28/20 02:00 04/28/20 03:31 Temperature Pulse Rate 64 61 50 L Respiratory Rate 28 H 28 H 24 H Blood Pressure 126/72 Pulse Oximetry 93 95 04/28/20 03:38 04/28/20 03:40 04/28/20 04:00 Temperature 36.5 C Pulse Rate 67 70 61 Respiratory Rate 28 H 30 H 27 H Blood Pressure 108/55 L Pulse Oximetry 92 95 04/28/20 06:00 04/28/20 08:00 04/28/20 08:10 Temperature 36.4 C L Pulse Rate 55 L 60 67 Respiratory Rate 22 H 26 H 26 H Blood Pressure 103/64 90/75 L Pulse Oximetry 94 91 04/28/20 08:30 04/28/20 10:00 04/28/20 11:30 Temperature Pulse Rate 60 59 L 61 Respiratory Rate 27 H 28 H 26 H Blood Pressure 117/61 Pulse Oximetry 94 94 95 04/28/20 12:00 04/28/20 14:00 04/28/20 14:10 Temperature 36.6 C Pulse Rate 71 60 Respiratory Rate 25 H 24 H Blood Pressure 112/69 Pulse Oximetry 95 95 93 04/28/20 14:13 04/28/20 14:15 04/28/20 16:00 Temperature Pulse Rate 67 55 L Respiratory Rate 26 H Blood Pressure Pulse Oximetry 92 Intake/Output Intake/Output: Intake & Output 04/25/20 04/26/20 04/27/20 04/28/20 23:59 23:59 23:59 23:59 Intake Total 540 610 600 240 Output Total 825 900 900 450 Balance -285 -290 -300 -210 Meds/Results Medications: Active Medications Generic Name Dose Route Start Last Admin Trade Name Freq PRN Reason Stop Dose Admin Albuterol 2.5 mg 04/26/20 20:00 04/28/20 14:10 Albuterol Sulfate Neb 2.5 Mg/0.5 Ml Inh INHALATION 2.5 mg Q6HRT LEXIS Administration Benzonatate 200 mg 04/28/20 13:00 04/28/20 16:31
[2020-04-28] MEDS: MONTELUKAST SODIUM 10 MG TABLET PO (20:43)
--- NOTE | 2020-04-28 22:18 | PC.NURSE ---
Patient back in bed, on bipap.
[2020-04-29] VITALS (28 sets, daily range): BP systolic 107–133; BP diastolic 51–90; PULSE 54–80; RESP 20–38; TEMP 36.4–37.8; O2SAT 87–95
[2020-04-29] MEDS: guaiFENesin/DEXTROMETHORPHAN 10 ML UDC PO ×3 (00:05→08:27)
[2020-04-29] MEDS: ALBUTEROL SULFATE NEB 2.5 MG/0.5 ML INH INHALATION ×4 (01:30→19:49)
[2020-04-29] MEDS: CENTRAL LINE FLUSH 10 ML IV PUSH ×3 (04:37→20:08)
[2020-04-29 04:59] LABS: Hematocrit 33.9 % (37.0-47.0); Mean Corpuscular HGB Conc 32.4 g/dl (32-36); Mean Corpuscular Hemoglobin 27.1 pg (26-34); Mean Corpuscular Volume 83.5 fl (80-100); Mean Platelet Volume 10.6 fl (7.4-10.4); Platelet Count Result 235 k/mm3 (150-375); Red Blood Count 4.06 M/mm3 (4.2-5.4); Red Cell Distribution Width 13.2 % (11.5-14.5); White Blood Count 12.5 K/mm3 (4.5-10.0)
[2020-04-29 05:11] LABS: Alveolar/Arterial O2 Gradient 460.8 mmHg; Base Excess ABG 3.1 mEq/l (+/-2.0); Carboxyhemoglobin 0.3 % THb (0-2.0); Fractional Inspired Oxygen 80 %; HCO3 ABG 28.8 mEq/l (22.0-26.0); Methemoglobin ABG 0.1 %THb (0-1.5); Oxygen Content ABG 14.9 %vol (16.0-22.0); Oxygen Saturation ABG 89.8 % (95.0-100.0); Oxyhemoglobin 89.7 % THb (90.0-100.0); PCO2 ABG 48.7 mmHg (35.0-45.0); PO2 ABG 58.5 mmHg (80.0-100.0); PO2 FiO2 Ratio Arterial Blood 0.73 %; Reduced Hemoglobin 9.9 %THb (0-5.0); Total Hemoglobin 11.8 g/dL (12.0-18.0); pH ABG 7.389 (7.350-7.450)
[2020-04-29 05:12] LABS: Alanine Aminotransferase 31 U/L (4-35); Albumin Level 2.8 g/dL (3.5-5.1); Alkaline Phosphatase 80 U/L (38-126); Anion Gap 0 mmol/L (8-16); Aspartate Amino Transferase 37 U/L (14-36); Bilirubin,Total 0.5 mg/dL (0.2-1.3); Blood Urea Nitrogen 18 mg/dL (7-17); CRP 3.8 mg/dL (<1.0); Calcium 8.9 mg/dL (8.4-10.2); Carbon Dioxide 33 mmol/L (22-30); Chloride 98 mmol/L (98-107); Device BIPAP; Estimated CRCL calculation 67 ml/min; Estimated Glomerular Filt Rate > 60; Glucose 90 mg/dL (65-105); Modified Allen's Test Pass; Phosphorus 3.8 mg/dL (2.5-4.5); Potassium 4.5 mmol/L (3.4-5.0); Site Drawn LEFT RADIAL; Sodium 131 mmol/L (137-145)
[2020-04-29 05:13] LABS: Expiratory Pressure 6 cmH2O; Inspiratory Pressure 12 cmH2O
[2020-04-29] MEDS: polyethylene glycoL 3350 17 GM POWD.PACK PO (08:26)
[2020-04-29] MEDS: ENOXAPARIN 40 MG/0.4 ML SYRINGE SUB-Q ×2 (08:26→20:08)
[2020-04-29] MEDS: DEXAMETHASONE SOD PHOS INJ 4 MG/ML VIAL 6 MG IV PUSH (08:27)
[2020-04-29] MEDS: PANTOPRAZOLE 40 MG TABLET PO (08:27)
[2020-04-29] MEDS: SERTRALINE HCL 50 MG TABLET 100 MG PO (08:27)
[2020-04-29] MEDS: BENZONATATE 100 MG CAPSULE 200 MG PO ×3 (08:27→16:38)
--- NOTE | 2020-04-29 09:03 | WPDINTPN ---
Progress Note: A&P Assessment and Plan (1) Acute respiratory failure with hypoxia: Code(s): J96.01 - Acute respiratory failure with hypoxia Status: Acute Assessment and Plan: Acute Respiratory failure secondary to COVID-19 pneumonia Currently on BiPAP, 100% FiO2, will try and switch to high-flow nasal therapy at some point. -O2 sats have been adequate without any respiratory distress -continue Tessalon Perles and will switch guaifenesin TO guaifenesin with codeine, I have scheduled these medications -patient continues to be high oxygen requirements, patient may require intubation and mechanical ventilation to which she agrees. -bilateral airspace disease which are unchanged CTA chest was done 04/23 due to elevated D-dimer level and was negative for PE and showed diffuse lung disease consistent with COVID-19 pneumonia Patient was encouraged to lay prone as much as possible but she has not been able to do it over last few days BNP was 341 Incentive spirometry, up in chair to minimize atelectasis (2) Pneumonia due to 2019 novel coronavirus: Code(s): U07.1 - COVID-19; J12.82 - Pneumonia due to coronavirus disease 2018 Status: Acute Assessment and Plan: Patient is in Airborne, Droplet and Contact Isolation Continue dexamethasone started 04/21/20 Completed course of remdesivir Follow inflammatory periodically 04/23 - 1 unit of convalescent plasma (3) Asthma: Code(s): J45.909 - Unspecified asthma, uncomplicated Status: Acute Assessment and Plan: albuterol p.r.n. Systemic steroids -dexamethasone (4) DVT prophylaxis: Code(s): Z29.9 - Encounter for prophylactic measures, unspecified Status: Acute Assessment and Plan: lovenox q 12h (5) Cough: Code(s): R05 - Cough Status: Acute Assessment and Plan: Continue Tessalon Perles Started guaifenesin with codeine -both the medications have been scheduled Additional Plan DVT prophylaxis -patient on Lovenox q.12 hours Stress ulcer prophylaxis -PPI Code Status -patient wishes to be Full Code. She wants us to contact her sister Perri for decision making if she is unable to make decisions for herself Total Critical Care Time - 31 minutes Due to a high probability of clinically significant, life threatening deterioration, the patient required my highest level of preparedness to intervene emergently and I personally spent this critical care time directly and personally managing the patient. This critical care time included obtaining a history; examining the patient; pulse oximetry; ordering and review of studies; arranging urgent treatment with development of a management plan; evaluation of patient's response to treatment; frequent reassessment; and discussions with other providers. It was exclusive of separately billable procedures and treating other patients and teaching time. Please see Assessment and Plan section and the rest of the note for further information on patient assessment and treatment Subjective Date/time seen: 04/29/20 09:03 Interval history: 70-year-old female admitted with respiratory failure and COVID pneumonia. Symptoms started 04/11/2020 and positive COVID-19 swab 04/15. - completed finished remdesivir 04/2504/29/2020: Patient seen and examined, on high-flow therapy 60 L flow rate, 80% FiO2. Patient is sitting up in chair. Continues to have bouts of coughing which she desaturates, after which a oxygen saturations improves fairly quickly. States she feels better this morning,, denies any severe shortness of breath, loss of taste or smell, chest pain, abdominal pain, nausea vomiting. Review of Systems Review of Systems: All systems reviewed & are unremarkable except as noted in HPI and below (HPI) Exam Narrative: Exam Narrative: General: Pt is alert, awake and in NAD Lungs/Chest: Trachea central course BS B/L, No crackles or wheezing. On high-flow nasal therapy Cardiac: RR
--- NOTE | 2020-04-29 11:13 | PCDIET ---
ICU Rounding Note: Patient ate pancake and castaneda for breakfast, per RN. Attempted to contact patient via phone due to COVID precautions with no answer. Last recorded weight is 91.5kg which is stable. Bowel Motility: No documented BM as of yet. Miralax started today. Labs Reviewed: Hgb (11.0), Hct (33.9), Na (131), Alb (2.8) Meds Noted: Albuterol, Decadron, Miralax Additional Notes: No documented skin breakdown. Following daily in ICU rounds. Assessing/reassessing every 3 days.
[2020-04-29] MEDS: guaiFENesin/CODEINE (*CRX) 200/20 MG 10 ML SYRUP PO ×3 (11:47→20:10)
--- NOTE | 2020-04-29 19:25 | PM.IMPN ---
Progress Note: A&P Assessment and Plan (1) Acute respiratory failure with hypoxia: Code(s): J96.01 - Acute respiratory failure with hypoxia Status: Acute Assessment and Plan: On ventilator support Management as per Int/cc (2) Pneumonia due to 2019 novel coronavirus: Code(s): U07.1 - COVID-19; J12.82 - Pneumonia due to coronavirus disease 2019 Status: Acute Assessment and Plan: Received Remdesivir/Dexamethasone (3) Pneumothorax, left: Code(s): J93.9 - Pneumothorax, unspecified Status: Acute Assessment and Plan: S/p Chest tube placement (4) MSSA bacteremia: Code(s): R78.81 - Bacteremia; B95.61 - Methicillin susceptible Staphylococcus aureus infection as the cause of diseases classified elsewhere Status: Acute Assessment and Plan: On antibiotics Contone to monitor (5) Edema: Code(s): R60.9 - Edema, unspecified Status: Acute Assessment and Plan: Diuresed as needed Subjective Date/time seen: 04/29/20 19:25 Patient is on ventilator Review of Systems Review of Systems: ROS unobtainable: Yes unobtainable due to medical condition Exam Narrative: Exam Narrative: Seen thru glass door. Exam is limited to inspection. Const: General: comfortable, no acute distress and other (On ventilator support.) Nutritional Appearance: average body habitus HENMT: Head: normocephalic Eyes: EOM: EOMs intact bilaterally Chest: Chest palpation & inspection: normal inspection of the chest Cardio: Jugular venous distension: no JVD GI: Inspection: normal to inspection Skin: General skin exam: normal color Neuro: General: other (Under sedation on ventilator support.) Objective Data Vital Signs Vital Signs: Vital Signs - 24 hr 04/28/20 19:33 04/28/20 20:00 04/28/20 22:00 Temperature Pulse Rate 61 58 L 58 L Respiratory Rate 27 H 26 H 30 H Blood Pressure 126/59 L 121/61 Pulse Oximetry 95 97 04/28/20 22:19 04/28/20 23:24 04/29/20 00:00 Temperature 98.1 F Pulse Rate 66 56 L 64 Respiratory Rate 36 H 28 H 36 H Blood Pressure 133/63 Pulse Oximetry 92 97 91 04/29/20 00:10 04/29/20 01:28 04/29/20 01:31 Temperature Pulse Rate 63 54 L 62 Respiratory Rate 36 H 31 H 30 H Blood Pressure Pulse Oximetry 91 94 04/29/20 01:36 04/29/20 02:00 04/29/20 03:51 Temperature Pulse Rate 71 65 66 Respiratory Rate 35 H 29 H 29 H Blood Pressure 130/57 L Pulse Oximetry 95 95 04/29/20 04:00 04/29/20 04:55 04/29/20 06:00 Temperature 97.9 F Pulse Rate 60 74 68 Respiratory Rate 28 H 38 H 28 H Blood Pressure 122/60 124/55 L Pulse Oximetry 95 93 94 04/29/20 08:00 04/29/20 08:28 04/29/20 08:30 Temperature 100.0 F H Pulse Rate 62 75 Respiratory Rate 27 H 20 Blood Pressure 119/58 L Pulse Oximetry 95 87 L 04/29/20 08:31 04/29/20 10:00 04/29/20 12:00 Temperature 97.5 F L Pulse Rate 76 80 65 Respiratory Rate 31 H 35 H 27 H Blood Pressure 123/51 L 124/60 Pulse Oximetry 91 92 95 04/29/20 14:00 04/29/20 14:26 04/29/20 14:30 Temperature Pulse Rate 76 72 Respiratory Rate 26 H 25 H Blood Pressure 125/58 L Pulse Oximetry 93 95 04/29/20 15:15 04/29/20 16:00 04/29/20 17:00 Temperature 97.6 F Pulse Rate 64 64 Respiratory Rate 28 H 28 H Blood Pressure 127/62 Pulse Oximetry 92 92 92 04/29/20 18:00 Temperature Pulse Rate 68 Respiratory Rate 25 H Blood Pressure 107/90 Pulse Oximetry 93 Intake/Output Intake/Output: Intake & Output 04/26/20 04/27/20 04/28/20 04/29/20 23:59 23:59 23:59 23:59 Intake Total 610 590 729 1785 Output Total 411 660 3732 1050 Balance -290 -300 -267 70 Meds/Results Medications: Active Medications Generic Name Dose Route Start Last Admin Trade Name Freq PRN Reason Stop Dose Admin Albuterol 2.5 mg 04/26/20 20:00 04/29/20 14:24 Albuterol Sulfate Neb 2.5 Mg/0.5 Ml Inh INHALATION 2.5 mg Q6HRT LEXIS Administration
[2020-04-29] MEDS: MONTELUKAST SODIUM 10 MG TABLET PO (20:08)
[2020-04-30] VITALS (24 sets, daily range): BP systolic 103–141; BP diastolic 51–70; PULSE 56–89; RESP 18–30; TEMP 35.9–37.3; O2SAT 86–98
[2020-04-30] MEDS: guaiFENesin/CODEINE (*CRX) 200/20 MG 10 ML SYRUP PO ×7 (00:07→23:54)
[2020-04-30] MEDS: CENTRAL LINE FLUSH 10 ML IV PUSH ×3 (03:56→20:10)
[2020-04-30 04:12] LABS: Hematocrit 33.7 % (37.0-47.0); Hemoglobin 10.8 g/dL (12.0-15.0); Mean Corpuscular Hemoglobin 27.1 pg (26-34); Mean Corpuscular Volume 84.7 fl (80-100); Mean Platelet Volume 10.3 fl (7.4-10.4); Platelet Count Result 220 k/mm3 (150-375); Red Blood Count 3.98 M/mm3 (4.2-5.4); Red Cell Distribution Width 13.3 % (11.5-14.5); White Blood Count 11.7 K/mm3 (4.5-10.0)
[2020-04-30 04:25] LABS: Alanine Aminotransferase 31 U/L (4-35); Albumin Level 2.9 g/dL (3.5-5.1); Alkaline Phosphatase 82 U/L (38-126); Anion Gap -3 mmol/L (8-16); Aspartate Amino Transferase 32 U/L (14-36); Bilirubin,Total 0.5 mg/dL (0.2-1.3); Blood Urea Nitrogen 17 mg/dL (7-17); CRP 6.3 mg/dL (<1.0); Calcium 8.9 mg/dL (8.4-10.2); Carbon Dioxide 36 mmol/L (22-30); Chloride 99 mmol/L (98-107); Estimated CRCL calculation 77 ml/min; Estimated Glomerular Filt Rate > 60; Glucose 99 mg/dL (65-105); Phosphorus 3.5 mg/dL (2.5-4.5); Potassium 4.4 mmol/L (3.4-5.0); Sodium 132 mmol/L (137-145)
[2020-04-30 05:40] LABS: Carboxyhemoglobin 0.3 % THb (0-2.0); Fractional Inspired Oxygen 100 %; HCO3 ABG 28.9 mEq/l (22.0-26.0); Methemoglobin ABG 0.2 %THb (0-1.5); Oxygen Content ABG 15.4 %vol (16.0-22.0); Oxygen Saturation ABG 96.7 % (95.0-100.0); Oxyhemoglobin 95.5 % THb (90.0-100.0); PCO2 ABG 50.5 mmHg (35.0-45.0); PO2 ABG 90.5 mmHg (80.0-100.0); Total Hemoglobin 11.4 g/dL (12.0-18.0); pH ABG 7.376 (7.350-7.450)
[2020-04-30 05:41] LABS: Device NON-INVASIVE VENT; Modified Allen's Test Pass; Site Drawn RIGHT RADIAL
[2020-04-30 05:42] LABS: Non-Invasive Expiratory Pressure 6 CMH2O; Non-Invasive Inspiratory Pressure 12 CMH2O; Non-Invasive Vent Rate 12 /MIN
[2020-04-30] MEDS: ALBUTEROL SULFATE NEB 2.5 MG/0.5 ML INH INHALATION ×3 (07:38→18:09)
[2020-04-30] MEDS: SERTRALINE HCL 50 MG TABLET 100 MG PO (08:21)
[2020-04-30] MEDS: ENOXAPARIN 40 MG/0.4 ML SYRINGE SUB-Q ×2 (08:22→20:10)
[2020-04-30] MEDS: DEXAMETHASONE SOD PHOS INJ 4 MG/ML VIAL 6 MG IV PUSH (08:22)
[2020-04-30] MEDS: BENZONATATE 100 MG CAPSULE 200 MG PO ×4 (08:22→23:54)
[2020-04-30] MEDS: PANTOPRAZOLE 40 MG TABLET PO (08:22)
[2020-04-30] MEDS: polyethylene glycoL 3350 17 GM POWD.PACK PO (08:22)
[2020-04-30] MEDS: ACETAMINOPHEN 325 MG TABLET 650 MG PO (10:28)
--- NOTE | 2020-04-30 10:46 | PCDIET ---
ICU Rounding Note: Patient eating fairly well on regular diet with average intake of 66% of meals on 04/29/20. Last recorded weight is 91.8kg which is stable. Bowel Motility: No documented BM. Miralax given today. Labs Reviewed: Hgb (10.8), Hct (33.7), Cr (0.6), Na (132), Alb (2.9) Meds Noted: Protonix, Miralax, Albuterol, Decadron Additional Notes: No documented skin breakdown. Following daily in ICU rounds. Assessing/reassessing every 3 days.
--- NOTE | 2020-04-30 12:24 | WPDINTPN ---
Progress Note: A&P Assessment and Plan (1) Acute respiratory failure with hypoxia: Code(s): J96.01 - Acute respiratory failure with hypoxia Status: Acute Assessment and Plan: Acute Respiratory failure secondary to COVID-19 pneumonia Currently on BiPAP, 100% FiO2, will try and switch to high-flow nasal therapy at some point. -O2 sats have been adequate without any respiratory distress -continue Tessalon Perles and will switch guaifenesin TO guaifenesin with codeine, I have scheduled these medications -patient continues to be high oxygen requirements, patient may require intubation and mechanical ventilation to which she agrees. -bilateral airspace disease which are unchanged CTA chest was done 04/23 due to elevated D-dimer level and was negative for PE and showed diffuse lung disease consistent with COVID-19 pneumonia Patient was encouraged to lay prone as much as possible but she has not been able to do it over last few days BNP was 341 Incentive spirometry, up in chair to minimize atelectasis (2) Pneumonia due to 2019 novel coronavirus: Code(s): U07.1 - COVID-19; J12.82 - Pneumonia due to coronavirus disease 2018 Status: Acute Assessment and Plan: Patient is in Airborne, Droplet and Contact Isolation Continue dexamethasone started 04/21/20 Completed course of remdesivir Follow inflammatory periodically 04/23 - 1 unit of convalescent plasma (3) Asthma: Code(s): J45.909 - Unspecified asthma, uncomplicated Status: Acute Assessment and Plan: albuterol p.r.n. Systemic steroids -dexamethasone (4) DVT prophylaxis: Code(s): Z29.9 - Encounter for prophylactic measures, unspecified Status: Acute Assessment and Plan: lovenox q 12h (5) Cough: Code(s): R05 - Cough Status: Acute Assessment and Plan: Continue Tessalon Perles Started guaifenesin with codeine -both the medications have been scheduled Additional Plan DVT prophylaxis -patient on Lovenox q.12 hours Stress ulcer prophylaxis -PPI Code Status -patient wishes to be Full Code. She wants us to contact her sister Perri for decision making if she is unable to make decisions for herself Total Critical Care Time - 31 minutes Due to a high probability of clinically significant, life threatening deterioration, the patient required my highest level of preparedness to intervene emergently and I personally spent this critical care time directly and personally managing the patient. This critical care time included obtaining a history; examining the patient; pulse oximetry; ordering and review of studies; arranging urgent treatment with development of a management plan; evaluation of patient's response to treatment; frequent reassessment; and discussions with other providers. It was exclusive of separately billable procedures and treating other patients and teaching time. Please see Assessment and Plan section and the rest of the note for further information on patient assessment and treatment Subjective Date/time seen: 04/30/20 12:24 Interval history: 70-year-old female admitted with respiratory failure and COVID pneumonia. Symptoms started 04/11/2020 and positive COVID-19 swab 04/15. - completed finished remdesivir 04/2504/30/2020: Patient seen and examined, on high-flow therapy 60 L flow rate, 87% FiO2. Patient is sitting up in chair. Continues to have bouts of coughing with which she desaturates, after which a oxygen saturations improves fairly quickly. Patient states cough is the only thing that is bothering her. Denies any loss of taste or smell, chest pain, abdominal pain, nausea vomiting. Review of Systems Review of Systems: All systems reviewed & are unremarkable except as noted in HPI and below (HPI) Exam Narrative: Exam Narrative: General: Pt is alert, awake and in NAD Lungs/Chest: Trachea central course BS B/L, No crackles or wheezing. On high-flow nasal therapy Cardiac: RR
[2020-04-30] MEDS: MONTELUKAST SODIUM 10 MG TABLET PO (20:10)
[2020-05-01] VITALS (23 sets, daily range): BP systolic 112–137; BP diastolic 50–66; PULSE 24–80; RESP 17–91; TEMP 36.3–37.1; O2SAT 90–98
[2020-05-01] MEDS: ALBUTEROL SULFATE NEB 2.5 MG/0.5 ML INH INHALATION ×4 (01:27→20:00)
[2020-05-01] MEDS: CENTRAL LINE FLUSH 10 ML IV PUSH ×3 (04:42→20:56)
[2020-05-01] MEDS: guaiFENesin/CODEINE (*CRX) 200/20 MG 10 ML SYRUP PO ×5 (04:42→20:55)
[2020-05-01 05:04] LABS: Hematocrit 31.3 % (37.0-47.0); Mean Corpuscular HGB Conc 31.9 g/dl (32-36); Mean Corpuscular Hemoglobin 26.5 pg (26-34); Mean Platelet Volume 10.7 fl (7.4-10.4); Platelet Count Result 231 k/mm3 (150-375); Red Blood Count 3.77 M/mm3 (4.2-5.4); Red Cell Distribution Width 13.2 % (11.5-14.5); White Blood Count 11.4 K/mm3 (4.5-10.0)
[2020-05-01 05:31] LABS: Alanine Aminotransferase 33 U/L (4-35); Albumin Level 2.7 g/dL (3.5-5.1); Alkaline Phosphatase 76 U/L (38-126); Anion Gap 1 mmol/L (8-16); Aspartate Amino Transferase 32 U/L (14-36); Bilirubin,Total 0.4 mg/dL (0.2-1.3); Blood Urea Nitrogen 17 mg/dL (7-17); Calcium 8.7 mg/dL (8.4-10.2); Carbon Dioxide 34 mmol/L (22-30); Chloride 97 mmol/L (98-107); Estimated CRCL calculation 77 ml/min; Estimated Glomerular Filt Rate > 60; Glucose 97 mg/dL (65-105); Phosphorus 3.5 mg/dL (2.5-4.5); Potassium 4.7 mmol/L (3.4-5.0); Sodium 132 mmol/L (137-145)
[2020-05-01 06:28] LABS: Alveolar/Arterial O2 Gradient 519.2 mmHg; Base Excess ABG 4.1 mEq/l (+/-2.0); Carboxyhemoglobin 0.3 % THb (0-2.0); Fractional Inspired Oxygen 80 %; HCO3 ABG 29.8 mEq/l (22.0-26.0); Methemoglobin ABG 0.3 %THb (0-1.5); Oxygen Content ABG 13.9 %vol (16.0-22.0); Oxygen Saturation ABG 92.7 % (95.0-100.0); PCO2 ABG 49.9 mmHg (35.0-45.0); PO2 ABG 66.1 mmHg (80.0-100.0); PO2 FiO2 Ratio Arterial Blood 0.83 %; Reduced Hemoglobin 7.4 %THb (0-5.0); Total Hemoglobin 10.7 g/dL (12.0-18.0); pH ABG 7.394 (7.350-7.450)
[2020-05-01 06:29] LABS: Device NON-INVASIVE VENT; Modified Allen's Test Pass; Site Drawn RIGHT RADIAL
[2020-05-01 06:30] LABS: Non-Invasive Expiratory Pressure 6 CMH2O; Non-Invasive Inspiratory Pressure 12 CMH2O; Non-Invasive Vent Rate 12 /MIN
[2020-05-01] MEDS: BENZONATATE 100 MG CAPSULE 200 MG PO ×3 (08:47→20:56)
[2020-05-01] MEDS: ENOXAPARIN 40 MG/0.4 ML SYRINGE SUB-Q ×2 (08:47→20:56)
[2020-05-01] MEDS: PANTOPRAZOLE 40 MG TABLET PO (08:48)
[2020-05-01] MEDS: SERTRALINE HCL 50 MG TABLET 100 MG PO (08:48)
[2020-05-01] MEDS: polyethylene glycoL 3350 17 GM POWD.PACK PO (08:48)
--- NOTE | 2020-05-01 11:11 | PCDIET ---
Nutrition Follow-Up Complete: Nutrition Diagnosis: Suboptimal oral intake related to respiratory failure as evidenced by average intake of 35% of meals since admission. Nutrition Goal: Patient to meet estimated nutritional needs. Goal met. Patient consumed 75% of meals yesterday on regular diet. RN encouraging fluid intake. Last recorded weight is 92.2 kg which is increased from last review. Bowel Motility: No documented BM - discussed during rounds - Miralax given. Labs Reviewed: Hgb (10.0), Hct (31.3), Cr (0.6), Na (132) Meds Noted: Albuterol, Protonix, Miralax Additional Notes: No documented skin breakdown. Will continue to monitor with same goal. Nutrition Monitoring and Evaluation: Follow up every 5 days. Follow daily in ICU rounds.
--- NOTE | 2020-05-01 11:34 | WPDINTPN ---
Progress Note: A&P Assessment and Plan (1) Acute respiratory failure with hypoxia: Code(s): J96.01 - Acute respiratory failure with hypoxia Status: Acute Assessment and Plan: Acute Respiratory failure secondary to COVID-19 pneumonia -patient on high-flow therapy during the day, BiPAP at night -continue up in chair, encourage incentive spirometry -continue Tessalon Perles, guaifenesin with codeine for cough -patient continues to be high oxygen requirements, patient may require intubation and mechanical ventilation to which she agrees. -chest x-ray reveals bilateral airspace disease which are unchanged CTA chest was done 04/23 due to elevated D-dimer level and was negative for PE and showed diffuse lung disease consistent with COVID-19 pneumonia Patient was encouraged to lay prone as much as possible but she has not been able to do it over last few days BNP was 341 Incentive spirometry, up in chair to minimize atelectasis (2) Pneumonia due to 2019 novel coronavirus: Code(s): U07.1 - COVID-19; J12.82 - Pneumonia due to coronavirus disease 2019 Status: Acute Assessment and Plan: Patient is in Airborne, Droplet and Contact Isolation Continue dexamethasone started 04/21/20 Completed course of remdesivir Follow inflammatory periodically 04/23 - 1 unit of convalescent plasma (3) Asthma: Code(s): J45.909 - Unspecified asthma, uncomplicated Status: Acute Assessment and Plan: albuterol p.r.n. Systemic steroids -dexamethasone (4) DVT prophylaxis: Code(s): Z29.9 - Encounter for prophylactic measures, unspecified Status: Acute Assessment and Plan: lovenox q 12h (5) Cough: Code(s): R05 - Cough Status: Acute Assessment and Plan: Continue Tessalon Perles Started guaifenesin with codeine -both the medications have been scheduled Additional Plan DVT prophylaxis -patient on Lovenox q.12 hours Stress ulcer prophylaxis -PPI Code Status -patient wishes to be Full Code. She wants us to contact her sister Perri for decision making if she is unable to make decisions for herself Total Critical Care Time - 31 minutes Due to a high probability of clinically significant, life threatening deterioration, the patient required my highest level of preparedness to intervene emergently and I personally spent this critical care time directly and personally managing the patient. This critical care time included obtaining a history; examining the patient; pulse oximetry; ordering and review of studies; arranging urgent treatment with development of a management plan; evaluation of patient's response to treatment; frequent reassessment; and discussions with other providers. It was exclusive of separately billable procedures and treating other patients and teaching time. Please see Assessment and Plan section and the rest of the note for further information on patient assessment and treatment Subjective Date/time seen: 05/01/20 11:34 Interval history: 70-year-old female admitted with respiratory failure and COVID pneumonia. Symptoms started 04/11/2020 and positive COVID-19 swab 04/15. - completed finished remdesivir 04/2505/01/2020: Patient seen and examined, patient has been on high-flow therapy during the day and BiPAP overnight. Has been sitting up in the chair, trying to use incentive spirometry. Continues to have bouts of coughing desaturation. Denies any loss of taste or smell, chest pain, abdominal pain, nausea vomiting. Review of Systems Review of Systems: All systems reviewed & are unremarkable except as noted in HPI and below (HPI) Exam Narrative: Exam Narrative: General: Pt is alert, awake and in NAD Lungs/Chest: Trachea central course BS B/L, No crackles or wheezing. On high-flow nasal therapy Cardiac: RRR. Normal S1 S2. No murmurs Circulation: Pedal pulses are intact and symmetrical. Abdomen: Normal bowel sounds. Obese Soft. NT. ND. Extrem
[2020-05-01] MEDS: MONTELUKAST SODIUM 10 MG TABLET PO (20:56)
[2020-05-02] VITALS (17 sets, daily range): BP systolic 109–139; BP diastolic 54–88; PULSE 69–86; RESP 24–34; TEMP 36.6–37.1; O2SAT 70–96
[2020-05-02] MEDS: guaiFENesin/CODEINE (*CRX) 200/20 MG 10 ML SYRUP PO ×6 (00:09→20:31)
[2020-05-02] MEDS: ALBUTEROL SULFATE NEB 2.5 MG/0.5 ML INH INHALATION (02:01)
[2020-05-02 04:45] LABS: Alveolar/Arterial O2 Gradient 598.8 mmHg; Carboxyhemoglobin 0.3 % THb (0-2.0); Device BIPAP; Expiratory Pressure 6 cmH2O; Fractional Inspired Oxygen 100 %; HCO3 ABG 31.5 mEq/l (22.0-26.0); Inspiratory Pressure 12 cmH2O; Methemoglobin ABG 0.2 %THb (0-1.5); Modified Allen's Test Pass; Oxygen Content ABG 13.6 %vol (16.0-22.0); Oxygen Saturation ABG 88.6 % (95.0-100.0); Oxyhemoglobin 88.8 % THb (90.0-100.0); PCO2 ABG 56.4 mmHg (35.0-45.0); PO2 ABG 57.8 mmHg (80.0-100.0); PO2 FiO2 Ratio Arterial Blood 0.58 %; Reduced Hemoglobin 10.7 %THb (0-5.0); Site Drawn RIGHT RADIAL; Total Hemoglobin 10.9 g/dL (12.0-18.0); pH ABG 7.365 (7.350-7.450)
[2020-05-02] MEDS: CENTRAL LINE FLUSH 10 ML IV PUSH ×3 (04:50→20:27)
[2020-05-02] MEDS: BENZONATATE 100 MG CAPSULE 200 MG PO ×3 (04:50→20:25)
[2020-05-02 05:00] LABS: Hematocrit 31.5 % (37.0-47.0); Mean Corpuscular HGB Conc 31.7 g/dl (32-36); Mean Corpuscular Hemoglobin 26.6 pg (26-34); Mean Corpuscular Volume 83.8 fl (80-100); Mean Platelet Volume 10.5 fl (7.4-10.4); Platelet Count Result 246 k/mm3 (150-375); Red Blood Count 3.76 M/mm3 (4.2-5.4); Red Cell Distribution Width 13.5 % (11.5-14.5); White Blood Count 11.7 K/mm3 (4.5-10.0)
[2020-05-02 05:13] LABS: Alanine Aminotransferase 29 U/L (4-35); Albumin Level 2.8 g/dL (3.5-5.1); Alkaline Phosphatase 84 U/L (38-126); Anion Gap 0 mmol/L (8-16); Aspartate Amino Transferase 30 U/L (14-36); Bilirubin,Total 0.4 mg/dL (0.2-1.3); Blood Urea Nitrogen 17 mg/dL (7-17); Calcium 8.7 mg/dL (8.4-10.2); Carbon Dioxide 34 mmol/L (22-30); Chloride 97 mmol/L (98-107); Estimated CRCL calculation 67 ml/min; Estimated Glomerular Filt Rate > 60; Glucose 99 mg/dL (65-105); Magnesium 1.8 mg/dL (1.6-2.3); Phosphorus 3.8 mg/dL (2.5-4.5); Potassium 4.2 mmol/L (3.4-5.0); Sodium 131 mmol/L (137-145)
[2020-05-02] MEDS: polyethylene glycoL 3350 17 GM POWD.PACK PO (09:19)
[2020-05-02] MEDS: SERTRALINE HCL 50 MG TABLET 100 MG PO (09:19)
[2020-05-02] MEDS: ENOXAPARIN 40 MG/0.4 ML SYRINGE SUB-Q ×2 (09:19→20:26)
[2020-05-02] MEDS: PANTOPRAZOLE 40 MG TABLET PO (09:19)
--- NOTE | 2020-05-02 09:35 | WPDINTPN ---
Progress Note: A&P Assessment and Plan (1) Acute respiratory failure with hypoxia: Code(s): J96.01 - Acute respiratory failure with hypoxia Status: Acute Assessment and Plan: Acute Respiratory failure secondary to COVID-19 pneumonia -patient on high-flow therapy during the day, BiPAP at night -continue up in chair, encourage incentive spirometry which would help with atelectasis -continue Tessalon Perles, guaifenesin with codeine for cough -cough worsens with albuterol, will discontinue albuterol and evaluate -patient continues to be high oxygen requirements, patient may require intubation and mechanical ventilation to which she agrees. -chest x-ray reveals bilateral airspace disease which are unchanged CTA chest was done 04/23 due to elevated D-dimer level and was negative for PE and showed diffuse lung disease consistent with COVID-19 pneumonia Patient was encouraged to lay prone as much as possible but she has not been able to do it over last few days (2) Pneumonia due to 2019 novel coronavirus: Code(s): U07.1 - COVID-19; J12.82 - Pneumonia due to coronavirus disease 2018 Status: Acute Assessment and Plan: Patient is in Airborne, Droplet and Contact Isolation Continue dexamethasone started 04/21/20 Completed course of remdesivir Follow inflammatory periodically 04/23 - 1 unit of convalescent plasma (3) Asthma: Code(s): J45.909 - Unspecified asthma, uncomplicated Status: Acute Assessment and Plan: albuterol p.r.n. Systemic steroids -dexamethasone (4) DVT prophylaxis: Code(s): Z29.9 - Encounter for prophylactic measures, unspecified Status: Acute Assessment and Plan: lovenox q 12h (5) Cough: Code(s): R05 - Cough Status: Acute Assessment and Plan: Continue Tessalon Perles Started guaifenesin with codeine -both the medications have been scheduled Additional Plan DVT prophylaxis -patient on Lovenox q.12 hours Stress ulcer prophylaxis -PPI Code Status -patient wishes to be Full Code. She wants us to contact her sister Perri for decision making if she is unable to make decisions for herself Total Critical Care Time - 31 minutes Due to a high probability of clinically significant, life threatening deterioration, the patient required my highest level of preparedness to intervene emergently and I personally spent this critical care time directly and personally managing the patient. This critical care time included obtaining a history; examining the patient; pulse oximetry; ordering and review of studies; arranging urgent treatment with development of a management plan; evaluation of patient's response to treatment; frequent reassessment; and discussions with other providers. It was exclusive of separately billable procedures and treating other patients and teaching time. Please see Assessment and Plan section and the rest of the note for further information on patient assessment and treatment Subjective Date/time seen: 05/02/20 09:35 Interval history: 70-year-old female admitted with respiratory failure and COVID pneumonia. Symptoms started 04/11/2020 and positive COVID-19 swab 04/15. - completed finished remdesivir 04/2505/02/2020: Patient seen and examined, patient has been on high-flow therapy during the day and BiPAP overnight. Has been sitting up in the chair, trying to use incentive spirometry. Cough worsens with albuterol. Denies any loss of taste or smell, chest pain, abdominal pain, nausea vomiting. Review of Systems Review of Systems: All systems reviewed & are unremarkable except as noted in HPI and below (HPI) Exam Narrative: Exam Narrative: General: Pt is alert, awake and in NAD Lungs/Chest: Trachea central course BS B/L, No crackles or wheezing. Currently on BiPAP Cardiac: RRR. Normal S1 S2. No murmurs Circulation: Pedal pulses are intact and symmetrical. Abdomen: Normal bowel sounds. Obese Soft. NT.
[2020-05-02] MEDS: FUROSEMIDE INJ 40 MG/4 ML VIAL IV PUSH (10:26)
--- NOTE | 2020-05-02 11:03 | PCDIET ---
ICU Rounding Note: Patient with decreased intakes yesterday - 0-25% of meals. Agree with regular diet. Last recorded weight is 90.8kg which is decreased from last review. Bowel Motility: RN reports smear BM yesterday. Miralax being given today. Per RN, patient feels as though she will have BM soon. Labs Reviewed: Hgb (10.0), Hct (31.5), Na (131), Alb (2.8) Meds Noted: Albuterol, Protonix, Miralax Additional Notes: adding Lasix. RN reports 2+ edema to LE. No skin breakdown reported. Following daily in ICU rounds. Assessing/reassessing every 5 days.
[2020-05-02] MEDS: MONTELUKAST SODIUM 10 MG TABLET PO (20:25)
[2020-05-03] VITALS (32 sets, daily range): BP systolic 103–167; BP diastolic 51–66; PULSE 66–102; RESP 23–39; TEMP 36.5–37.1; O2SAT 82–96
[2020-05-03] MEDS: guaiFENesin/CODEINE (*CRX) 200/20 MG 10 ML SYRUP PO ×2 (00:37→04:01)
[2020-05-03 04:30] LABS: Hematocrit 31.1 % (37.0-47.0); Hemoglobin 10.1 g/dL (12.0-15.0); Mean Corpuscular HGB Conc 32.5 g/dl (32-36); Mean Corpuscular Hemoglobin 27.2 pg (26-34); Mean Corpuscular Volume 83.6 fl (80-100); Mean Platelet Volume 10.5 fl (7.4-10.4); Platelet Count Result 238 k/mm3 (150-375); Red Blood Count 3.72 M/mm3 (4.2-5.4); Red Cell Distribution Width 13.5 % (11.5-14.5); White Blood Count 10.5 K/mm3 (4.5-10.0)
[2020-05-03 04:57] LABS: D Dimer 3.52 ug/mL (<0.48)
[2020-05-03 05:07] LABS: Alanine Aminotransferase 27 U/L (4-35); Albumin Level 2.9 g/dL (3.5-5.1); Alkaline Phosphatase 89 U/L (38-126); Anion Gap -2 mmol/L (8-16); Aspartate Amino Transferase 31 U/L (14-36); Bilirubin,Total 0.6 mg/dL (0.2-1.3); Blood Urea Nitrogen 17 mg/dL (7-17); CRP 18.4 mg/dL (<1.0); Calcium 9.2 mg/dL (8.4-10.2); Carbon Dioxide 39 mmol/L (22-30); Chloride 95 mmol/L (98-107); Estimated CRCL calculation 67 ml/min; Estimated Glomerular Filt Rate > 60; Glucose 113 mg/dL (65-105); Lactate Dehydrogenase 655 U/L (313-618); Magnesium 1.9 mg/dL (1.6-2.3); Phosphorus 4.3 mg/dL (2.5-4.5); Potassium 3.8 mmol/L (3.4-5.0); Sodium 132 mmol/L (137-145)
[2020-05-03 05:40] LABS: Alveolar/Arterial O2 Gradient 606.5 mmHg; Fractional Inspired Oxygen 100 %; HCO3 ABG 31.3 mEq/l (22.0-26.0); Methemoglobin ABG 0.1 %THb (0-1.5); Oxygen Content ABG 13.2 %vol (16.0-22.0); Oxyhemoglobin 85.1 % THb (90.0-100.0); PCO2 ABG 54.6 mmHg (35.0-45.0); PO2 ABG 51.9 mmHg (80.0-100.0); PO2 FiO2 Ratio Arterial Blood 0.52 %; Reduced Hemoglobin 14.8 %THb (0-5.0); pH ABG 7.376 (7.350-7.450)
[2020-05-03 05:42] LABS: Device NON-INVASIVE VENT; Modified Allen's Test Pass; Oxygen Saturation ABG 85.3 % (95.0-100.0); Site Drawn LEFT RADIAL
[2020-05-03 05:43] LABS: Non-Invasive Expiratory Pressure 8 CMH2O; Non-Invasive Inspiratory Pressure 14 CMH2O; Non-Invasive Vent Rate 12 /MIN
[2020-05-03] MEDS: BENZONATATE 100 MG CAPSULE 200 MG PO (06:43)
[2020-05-03] MEDS: CENTRAL LINE FLUSH 10 ML IV PUSH ×3 (06:44→20:47)
[2020-05-03] MEDS: ENOXAPARIN 40 MG/0.4 ML SYRINGE SUB-Q ×2 (08:06→20:46)
[2020-05-03] MEDS: MIDAZOLAM HCL (*CRX) 2 MG/2 ML VIAL IV PUSH (09:22)
[2020-05-03] MEDS: ROCURONIUM BROMIDE 50 MG/5 ML VIAL IV PUSH (09:23)
[2020-05-03] MEDS: CISATRACURIUM BESYLATE 200 MG in DEXTROSE 5% 80 ML 8.18 ML IV CONT (09:25)
[2020-05-03] MEDS: EPOPROSTENOL SODIUM 0.5 MG VIAL 1 MG INHALATION ×3 (09:40→21:04)
[2020-05-03 10:17] LABS: Alveolar/Arterial O2 Gradient 565.5 mmHg; Base Excess ABG 3.4 mEq/l (+/-2.0); Carboxyhemoglobin 0.2 % THb (0-2.0); Fractional Inspired Oxygen 100 %; HCO3 ABG 30.7 mEq/l (22.0-26.0); Methemoglobin ABG 0.1 %THb (0-1.5); Oxygen Content ABG 15.2 %vol (16.0-22.0); Oxygen Saturation ABG 95.7 % (95.0-100.0); Oxyhemoglobin 94.8 % THb (90.0-100.0); PO2 ABG 86.9 mmHg (80.0-100.0); PO2 FiO2 Ratio Arterial Blood 0.87 %; Reduced Hemoglobin 4.9 %THb (0-5.0); Total Hemoglobin 11.3 g/dL (12.0-18.0); pH ABG 7.323 (7.350-7.450)
[2020-05-03 10:18] LABS: Device VENTILATOR; PCO2 ABG 60.6 mmHg (35.0-45.0); Site Drawn LEFT BRACHIAL
[2020-05-03 10:19] LABS: Arterial Blood Gas PEEP 12 cmH2O; Arterial Blood Gas Tidal Volume 300 ml; Arterial Blood Gas Vent Mode ASSIST CONTROL; Arterial Blood Gas Ventilator rate 26 /MIN
--- NOTE | 2020-05-03 13:17 | WPDINTPN ---
Progress Note: A&P Assessment and Plan (1) Acute respiratory failure with hypoxia: Code(s): J96.01 - Acute respiratory failure with hypoxia Status: Acute Assessment and Plan: Acute Respiratory failure secondary to COVID-19 pneumonia -on 05/03/2020: Patient failed her BiPAP, 100% FiO2. Desaturating in the low 80s. Patient also tiring out, discussed with her regarding intubation to which she agreed and patient was successfully intubated and placed on mechanical ventilation. CMV mode, 100% FiO2, peep of 12. -x-ray and ABGs reviewed, ventilator adjusted - Patient placed on Flolan on 05/03 -started on Nimbex on 05/03 -sedated with fentanyl and Versed infusion (2) Pneumonia due to 2019 novel coronavirus: Code(s): U07.1 - COVID-19; J12.82 - Pneumonia due to coronavirus disease 2019 Status: Acute Assessment and Plan: Patient is in Airborne, Droplet and Contact Isolation Completed course of dexamethasone Completed course of remdesivir Follow inflammatory periodically 04/23 - 1 unit of convalescent plasma (3) Asthma: Code(s): J45.909 - Unspecified asthma, uncomplicated Status: Acute Assessment and Plan: albuterol p.r.n. (4) DVT prophylaxis: Code(s): Z29.9 - Encounter for prophylactic measures, unspecified Status: Acute Assessment and Plan: lovenox q 12h (5) Cough: Code(s): R05 - Cough Status: Acute Assessment and Plan: Patient currently intubated and sedated, chemically paralyzed Additional Plan DVT prophylaxis -patient on Lovenox q.12 hours Stress ulcer prophylaxis -PPI Called daughter Perri, left voice message Code Status -patient wishes to be Full Code. She wants us to contact her sister Perri for decision making if she is unable to make decisions for herself Total Critical Care Time - 38 minutes Due to a high probability of clinically significant, life threatening deterioration, the patient required my highest level of preparedness to intervene emergently and I personally spent this critical care time directly and personally managing the patient. This critical care time included obtaining a history; examining the patient; pulse oximetry; ordering and review of studies; arranging urgent treatment with development of a management plan; evaluation of patient's response to treatment; frequent reassessment; and discussions with other providers. It was exclusive of separately billable procedures and treating other patients and teaching time. Please see Assessment and Plan section and the rest of the note for further information on patient assessment and treatment Subjective Date/time seen: 05/03/20 13:17 Interval history: 70-year-old female admitted with respiratory failure and COVID pneumonia. Symptoms started 04/11/2020 and positive COVID-19 swab 04/15. - completed finished remdesivir 04/25 -intubated 05/03/2020 05/03/2020: Patient seen and examined in the room, patient is desaturating in the low 80s. Despite being a BiPAP 100% FiO2. I discussed with the patient regarding intubation to which she agrees. Intubation was uneventful, patient was hypoxic despite being on 100% FiO2, peep of 12. Started patient on Nimbex and based on Flolan Patient has been afebrile, urine output has been adequate and hemodynamically stable. Review of Systems Review of Systems: ROS unobtainable: Yes unobtainable due to endotracheal tube Exam Const: General: comfortable and no acute distress HENMT: Other: ETT in place Eyes: Sclera: sclerae normal Pupils: Equal, round and reactive pupils present Resp: Effort & Inspection: normal respiratory effort Auscultation: crackles, rales and diminished lung sounds Cardio: Rate: regular rate Rhythm: regular rhythm GI: Inspection: non-distended GI Palp: Yes Soft to palpation and No Tenderness to palpation present (GI) Auscultation: normal bowel sounds : Other: Goff catheter in place Urinar
--- NOTE | 2020-05-03 13:26 | WPDPROCEDUR ---
Procedures Intubation Intubation Date: 05/03/20 Intubation Time: 08:32 A pre-procedural Time-Out was completed immediately before starting the procedure and confirmed: Patient Identification, Site, Procedure, Patient Position and the Availability of Requisite Equipment: Yes Sedative: etomidate Paralytic: rocuronium Laryngoscope: fiber optic video scope Assist device used: fiber optic device ET tube size: 7.5 Tube secured depth (cm): 23 Tube secured location: lips Tube placement confirmation: visualized tube passing through cords, equal breath sounds bilaterally, no breath sounds over epigastrium and confirmation by capnometry Patient tolerated procedure: well
--- NOTE | 2020-05-03 14:08 | PCOTNOTE ---
Per RN, patient intubated and RN will be discharging from therapy services as they are inappropriate at this time. Will begin plan of care again after re-evaluation if appropriate.
[2020-05-03] MEDS: FENTANYL 2,500MCG/NS250ML(*CRX 2,500 MCG/250 ML BAG 7.5 MCG IV CONT (15:58)
[2020-05-03 16:17] LABS: Glucose Point of Care 114 (65-105)
[2020-05-03 17:32] LABS: Alveolar/Arterial O2 Gradient 589.8 mmHg; Arterial Blood Gas PEEP 10 cmH2O; Arterial Blood Gas Vent Mode ASSIST CONTROL; Arterial Blood Gas Ventilator rate 26 /MIN; Base Excess ABG 6.1 mEq/l (+/-2.0); Device VENTILATOR; Fractional Inspired Oxygen 100 %; HCO3 ABG 33.2 mEq/l (22.0-26.0); Oxygen Content ABG 14.6 %vol (16.0-22.0); Oxygen Saturation ABG 90.1 % (95.0-100.0); Oxyhemoglobin 90.2 % THb (90.0-100.0); PCO2 ABG 61.2 mmHg (35.0-45.0); PO2 FiO2 Ratio Arterial Blood 0.62 %; Site Drawn LEFT BRACHIAL; Total Hemoglobin 11.5 g/dL (12.0-18.0); pH ABG 7.352 (7.350-7.450)
[2020-05-03 17:33] LABS: Arterial Blood Gas Tidal Volume 300 ml
--- NOTE | 2020-05-03 19:00 | PC.NURSE ---
Fentanyl drip noted to be at 125 mcg/hr at the beginning of my shift 05/03/20 at 1900
[2020-05-03] MEDS: CISATRACURIUM BESYLATE 200 MG in DEXTROSE 5% 80 ML 7.64 ML IV CONT (20:42)
[2020-05-03] MEDS: MONTELUKAST SODIUM 10 MG TABLET PO (20:46)
[2020-05-03 21:42] LABS: NIL 0.01 IU/mL; Quantiferon TB Plus, 1T INDETERMINATE (NEGATIVE)
[2020-05-04] VITALS (35 sets, daily range): BP systolic 111–130; BP diastolic 48–67; PULSE 62–107; RESP 26–30; TEMP 36.6–37.7; O2SAT 91–98
[2020-05-04] MEDS: EPOPROSTENOL SODIUM 0.5 MG VIAL 1 MG INHALATION ×4 (02:43→19:56)
[2020-05-04] MEDS: CENTRAL LINE FLUSH 10 ML IV PUSH ×2 (05:35→22:00)
[2020-05-04 06:16] LABS: Alveolar/Arterial O2 Gradient 583.2 mmHg; Base Excess ABG 4.9 mEq/l (+/-2.0); Fractional Inspired Oxygen 100 %; HCO3 ABG 30.7 mEq/l (22.0-26.0); Oxygen Saturation ABG 95.4 % (95.0-100.0); Oxyhemoglobin 94.4 % THb (90.0-100.0); PCO2 ABG 51.3 mmHg (35.0-45.0); PO2 ABG 78.5 mmHg (80.0-100.0); PO2 FiO2 Ratio Arterial Blood 0.79 %; Total Hemoglobin 10.5 g/dL (12.0-18.0); pH ABG 7.395 (7.350-7.450)
[2020-05-04 06:17] LABS: Device VENTILATOR; Modified Allen's Test Pass; Site Drawn RIGHT RADIAL
[2020-05-04 06:18] LABS: Arterial Blood Gas PEEP 10 cmH2O; Arterial Blood Gas Vent Mode CMV; Arterial Blood Gas Ventilator rate 30 /MIN
[2020-05-04 06:19] LABS: Arterial Blood Gas Tidal Volume 300 ml
[2020-05-04 06:20] LABS: Basophils Percent Auto 0.2 % (0.2-1.2); Eosinophils Absolute Auto 0.1 K/mm3 (0-0.3); Eosinophils Percent Auto 1.3 % (0-4.4); Hematocrit 30.7 % (37.0-47.0); Hemoglobin 9.7 g/dL (12.0-15.0); Immature Granulocyte Absolute 0.15 K/mm3 (0.00-0.031); Immature Granulocyte Percent A 1.6 % (0-0.5); Lymphocytes Absolute Auto 0.35 K/mm3 (0.9-3.2); Lymphocytes Percent Auto 3.7 % (18.3-44.2); Mean Corpuscular HGB Conc 31.6 g/dl (32-36); Mean Corpuscular Hemoglobin 27.2 pg (26-34); Mean Platelet Volume 10.6 fl (7.4-10.4); Monocytes Absolute Auto 0.3 K/mm3 (0.1-0.6); Monocytes Percent Auto 3.2 % (2.6-8.5); Neutrophils Absolute Auto 8.5 K/mm3 (1.3-6.7); Platelet Count Result 232 k/mm3 (150-375); Red Blood Count 3.57 M/mm3 (4.2-5.4); Red Cell Distribution Width 13.5 % (11.5-14.5); White Blood Count 9.5 K/mm3 (4.5-10.0)
[2020-05-04 06:44] LABS: Alanine Aminotransferase 23 U/L (4-35); Albumin Level 2.7 g/dL (3.5-5.1); Alkaline Phosphatase 99 U/L (38-126); Anion Gap 2 mmol/L (8-16); Aspartate Amino Transferase 29 U/L (14-36); Bilirubin,Total 0.6 mg/dL (0.2-1.3); Blood Urea Nitrogen 15 mg/dL (7-17); Calcium 9.3 mg/dL (8.4-10.2); Carbon Dioxide 36 mmol/L (22-30); Chloride 95 mmol/L (98-107); Estimated CRCL calculation 78 ml/min; Estimated Glomerular Filt Rate > 60; Glucose 93 mg/dL (65-105); Potassium 4.1 mmol/L (3.4-5.0); Sodium 133 mmol/L (137-145)
[2020-05-04] MEDS: FENTANYL 2,500MCG/NS250ML(*CRX 2,500 MCG/250 ML BAG 10 MCG IV CONT (07:10)
[2020-05-04] MEDS: SERTRALINE HCL 50 MG TABLET 100 MG PO (09:06)
[2020-05-04] MEDS: polyethylene glycoL 3350 17 GM POWD.PACK PO (09:06)
[2020-05-04] MEDS: PANTOPRAZOLE 40 MG TABLET PO (09:07)
[2020-05-04] MEDS: CISATRACURIUM BESYLATE 200 MG in DEXTROSE 5% 80 ML 10.91 ML IV CONT ×2 (09:07→18:17)
[2020-05-04] MEDS: ENOXAPARIN 40 MG/0.4 ML SYRINGE SUB-Q ×2 (09:07→21:11)
--- NOTE | 2020-05-04 11:55 | WPDINTPN ---
Progress Note: A&P Assessment and Plan (1) Acute respiratory failure with hypoxia: Code(s): J96.01 - Acute respiratory failure with hypoxia Status: Acute Assessment and Plan: Acute Respiratory failure secondary to COVID-19 pneumonia -on 05/03/2020: Patient failed her BiPAP, 100% FiO2. Desaturating in the low 80s. Patient also tiring out, discussed with her regarding intubation to which she agreed and patient was successfully intubated and placed on mechanical ventilation. CMV mode, 100% FiO2, decrease PEEP to 10, wean FiO2 as tolerated -x-ray and ABGs reviewed, ventilator adjusted - Patient placed on Flolan on 05/03 -started on Nimbex on 05/03 -sedated with fentanyl and Versed infusion -05/03 patient was proned for 14 hours -will prone patient again today (2) Pneumonia due to 2019 novel coronavirus: Code(s): U07.1 - COVID-19; J12.82 - Pneumonia due to coronavirus disease 2019 Status: Acute Assessment and Plan: Patient is in Airborne, Droplet and Contact Isolation Completed course of dexamethasone Completed course of remdesivir Follow inflammatory periodically 04/23 - 1 unit of convalescent plasma (3) Asthma: Code(s): J45.909 - Unspecified asthma, uncomplicated Status: Acute Assessment and Plan: albuterol p.r.n. (4) DVT prophylaxis: Code(s): Z29.9 - Encounter for prophylactic measures, unspecified Status: Acute Assessment and Plan: lovenox q 12h (5) Cough: Code(s): R05 - Cough Status: Acute Assessment and Plan: Patient currently intubated and sedated, chemically paralyzed (6) Dietary counseling and surveillance: Code(s): Z71.3 - Dietary counseling and surveillance Status: Acute Assessment and Plan: Started on tube feeds and tolerating -stress ulcer prophylaxis: Ppi Additional Plan Called daughter Perri, left voice message Code Status -patient wishes to be Full Code. She wants us to contact her sister Perri for decision making if she is unable to make decisions for herself Total Critical Care Time - 33 minutes Due to a high probability of clinically significant, life threatening deterioration, the patient required my highest level of preparedness to intervene emergently and I personally spent this critical care time directly and personally managing the patient. This critical care time included obtaining a history; examining the patient; pulse oximetry; ordering and review of studies; arranging urgent treatment with development of a management plan; evaluation of patient's response to treatment; frequent reassessment; and discussions with other providers. It was exclusive of separately billable procedures and treating other patients and teaching time. Please see Assessment and Plan section and the rest of the note for further information on patient assessment and treatment Subjective Date/time seen: 05/04/20 11:55 Interval history: 70-year-old female admitted with respiratory failure and COVID pneumonia. Symptoms started 04/11/2020 and positive COVID-19 swab 04/15. - completed finished remdesivir 04/25 -intubated 05/03/2020 05/04/2020: Patient intubated on 100% FiO2, peep of 10. Was in prone position for about 14 hours yesterday. Urine output has been slightly low, afebrile. Patient is sedated with fentanyl, Versed. On Nimbex for neuromuscular blockade. Patient is hemodynamically stable. Patient remains on Flolan Review of Systems Review of Systems: ROS unobtainable: Yes unobtainable due to endotracheal tube Exam Const: General: comfortable and no acute distress HENMT: Other: ETT in place Eyes: Sclera: sclerae normal Pupils: Equal, round and reactive pupils present Resp: Effort & Inspection: normal respiratory effort Auscultation: crackles, rales and diminished lung sounds Cardio: Rate: regular rate Rhythm: regular rhythm GI: Inspection: non-distended GI Palp: Yes Soft to p
[2020-05-04 16:56] LABS: Base Excess ABG 5.6 mEq/l (+/-2.0); Fractional Inspired Oxygen 90 %; HCO3 ABG 33.1 mEq/l (22.0-26.0); Oxygen Content ABG 14.3 %vol (16.0-22.0); Oxygen Saturation ABG 93.4 % (95.0-100.0); Oxyhemoglobin 92.6 % THb (90.0-100.0); PO2 ABG 73.9 mmHg (80.0-100.0); PO2 FiO2 Ratio Arterial Blood 0.82 %; Total Hemoglobin 10.9 g/dL (12.0-18.0)
[2020-05-04 16:57] LABS: Arterial Blood Gas PEEP 10 cmH2O; Arterial Blood Gas Tidal Volume 300 ml; Arterial Blood Gas Vent Mode ASSIST CONTROL; Arterial Blood Gas Ventilator rate 26 /MIN; Device VENTILATOR; Modified Allen's Test Pass; PCO2 ABG 64.2 mmHg (35.0-45.0); Site Drawn RIGHT RADIAL
[2020-05-04] MEDS: MONTELUKAST SODIUM 10 MG TABLET PO (21:12)
[2020-05-05] VITALS (50 sets, daily range): BP systolic 100–151; BP diastolic 49–61; PULSE 71–110; RESP 26–32; TEMP 36.9–38.4; O2SAT 81–96; BMI 38.3
[2020-05-05] MEDS: EPOPROSTENOL SODIUM 0.5 MG VIAL 1 MG INHALATION ×4 (01:53→19:58)
[2020-05-05] MEDS: CISATRACURIUM BESYLATE 200 MG in DEXTROSE 5% 80 ML 10.91 ML IV CONT (03:04)
[2020-05-05 04:01] LABS: Alveolar/Arterial O2 Gradient 599.5 mmHg; Base Excess ABG 5.1 mEq/l (+/-2.0); Fractional Inspired Oxygen 100 %; HCO3 ABG 30.7 mEq/l (22.0-26.0); Oxygen Content ABG 13.1 %vol (16.0-22.0); Oxygen Saturation ABG 91.9 % (95.0-100.0); Oxyhemoglobin 90.9 % THb (90.0-100.0); PCO2 ABG 50.4 mmHg (35.0-45.0); PO2 ABG 63.1 mmHg (80.0-100.0); PO2 FiO2 Ratio Arterial Blood 0.63 %; Total Hemoglobin 10.2 g/dL (12.0-18.0); pH ABG 7.402 (7.350-7.450)
[2020-05-05 04:02] LABS: Arterial Blood Gas PEEP 10 cmH2O; Arterial Blood Gas Tidal Volume 300 ml; Arterial Blood Gas Vent Mode ASSIST CONTROL; Arterial Blood Gas Ventilator rate 30 /MIN; Device VENTILATOR; Modified Allen's Test Unable to perform; Site Drawn LEFT RADIAL
[2020-05-05] MEDS: CENTRAL LINE FLUSH 10 ML IV PUSH ×3 (06:25→22:00)
[2020-05-05 06:32] LABS: Hematocrit 30.1 % (37.0-47.0); Hemoglobin 9.5 g/dL (12.0-15.0); Mean Corpuscular HGB Conc 31.6 g/dl (32-36); Mean Corpuscular Hemoglobin 26.9 pg (26-34); Mean Corpuscular Volume 85.3 fl (80-100); Mean Platelet Volume 10.3 fl (7.4-10.4); Platelet Count Result 227 k/mm3 (150-375); Red Blood Count 3.53 M/mm3 (4.2-5.4); Red Cell Distribution Width 13.6 % (11.5-14.5); White Blood Count 9.6 K/mm3 (4.5-10.0)
[2020-05-05 06:44] LABS: Anion Gap 0 mmol/L (8-16); Blood Urea Nitrogen 17 mg/dL (7-17); Calcium 9.2 mg/dL (8.4-10.2); Carbon Dioxide 37 mmol/L (22-30); Chloride 94 mmol/L (98-107); Estimated CRCL calculation 79 ml/min; Estimated Glomerular Filt Rate > 60; Glucose 104 mg/dL (65-105); Potassium 4.3 mmol/L (3.4-5.0); Sodium 131 mmol/L (137-145)
[2020-05-05 06:50] LABS: Lactate Dehydrogenase 386 U/L (313-618)
[2020-05-05 06:55] LABS: D Dimer 2.95 ug/mL (<0.48)
[2020-05-05 07:01] LABS: CRP 22.4 mg/dL (<1.0)
[2020-05-05] MEDS: ENOXAPARIN 40 MG/0.4 ML SYRINGE SUB-Q ×2 (08:10→21:05)
[2020-05-05] MEDS: polyethylene glycoL 3350 17 GM POWD.PACK PO (08:11)
[2020-05-05] MEDS: PANTOPRAZOLE 40 MG TABLET PO (08:11)
[2020-05-05] MEDS: SERTRALINE HCL 50 MG TABLET 100 MG PO (08:12)
[2020-05-05] MEDS: FENTANYL 2,500MCG/NS250ML(*CRX 2,500 MCG/250 ML BAG 10 MCG IV CONT (09:46)
--- NOTE | 2020-05-05 09:47 | WPDINTPN ---
Progress Note: A&P Assessment and Plan (1) Acute respiratory failure with hypoxia: Code(s): J96.01 - Acute respiratory failure with hypoxia Status: Acute Assessment and Plan: Acute Respiratory failure secondary to COVID-19 pneumonia -on 05/03/2020: Patient failed her BiPAP, 100% FiO2. Desaturating in the low 80s. Patient also tiring out, discussed with her regarding intubation to which she agreed and patient was successfully intubated and placed on mechanical ventilation. CMV mode, 100% FiO2, decrease PEEP to 10, wean FiO2 as tolerated -x-ray and ABGs reviewed, ventilator adjusted - Patient placed on Flolan on 05/03 -continue Nimbex on 05/03 -sedated with fentanyl and Versed infusion -05/03 and 05/04 was proned for 14 hours -will prone patient again today (2) Pneumonia due to 2019 novel coronavirus: Code(s): U07.1 - COVID-19; J12.82 - Pneumonia due to coronavirus disease 2019 Status: Acute Assessment and Plan: Patient is in Airborne, Droplet and Contact Isolation Completed course of dexamethasone Completed course of remdesivir Follow inflammatory periodically 04/23 - 1 unit of convalescent plasma (3) Asthma: Code(s): J45.909 - Unspecified asthma, uncomplicated Status: Acute Assessment and Plan: albuterol p.r.n. (4) DVT prophylaxis: Code(s): Z29.9 - Encounter for prophylactic measures, unspecified Status: Acute Assessment and Plan: lovenox q 12h (5) Cough: Code(s): R05 - Cough Status: Acute Assessment and Plan: Patient currently intubated and sedated, chemically paralyzed (6) Dietary counseling and surveillance: Code(s): Z71.3 - Dietary counseling and surveillance Status: Acute Assessment and Plan: Started on tube feeds and tolerating -stress ulcer prophylaxis: PPI Additional Plan Will update family Code Status -patient wishes to be Full Code. Total Critical Care Time - 32 minutes Due to a high probability of clinically significant, life threatening deterioration, the patient required my highest level of preparedness to intervene emergently and I personally spent this critical care time directly and personally managing the patient. This critical care time included obtaining a history; examining the patient; pulse oximetry; ordering and review of studies; arranging urgent treatment with development of a management plan; evaluation of patient's response to treatment; frequent reassessment; and discussions with other providers. It was exclusive of separately billable procedures and treating other patients and teaching time. Please see Assessment and Plan section and the rest of the note for further information on patient assessment and treatment Subjective Date/time seen: 05/05/20 09:47 Interval history: 70-year-old female admitted with respiratory failure and COVID pneumonia. Symptoms started 04/11/2020 and positive COVID-19 swab 04/15. - completed finished remdesivir 04/25 -intubated 05/03/2020 05/05/2020: Patient intubated on 100% FiO2, peep of 10. Was in prone position for about 14 hours yesterday, was unprobned this morning at 6am. . Urine output has been slightly low, afebrile. Patient is sedated with fentanyl, Versed. On Nimbex for neuromuscular blockade. Patient is hemodynamically stable. Patient remains on Flolan Review of Systems Review of Systems: ROS unobtainable: Yes unobtainable due to endotracheal tube Exam Const: General: comfortable and no acute distress HENMT: Other: ETT in place Eyes: Sclera: sclerae normal Pupils: Equal, round and reactive pupils present Resp: Effort & Inspection: normal respiratory effort Auscultation: crackles, rales and diminished lung sounds Cardio: Rate: regular rate Rhythm: regular rhythm GI: Inspection: non-distended GI Palp: Yes Soft to palpation Auscultation: abnormal bowel sounds (Hypoactive bowel sounds) : Other: Ogff
--- NOTE | 2020-05-05 10:55 | PCDIET ---
ICU Rounding Note: Patient tolerating Vital 1.2 at 30mL/hr with goal of 50mL/hr. Receiving 30mL water flush every 4 hours. Tube feeding goal provides 1320kcal and 82g protein over 22 hours/day which is appropriate. Last recorded weight is 95.1kg which is increased from last review, despite -I/O. Bowel Motility: No documented BM. Discussed during rounds. Miralax given today, per RN. Labs Reviewed: Hgb (9.5), Hct (30.1), Na (131), Alb (2.7) Meds Noted: Nimbex, Miralax, Fentanyl, Versed, Protonix Additional Notes: No documented skin breakdown. Following daily in ICU rounds. Assessing/reassessing every Tuesday/Tuesday.
[2020-05-05] MEDS: CISATRACURIUM BESYLATE 200 MG in DEXTROSE 5% 80 ML 13.64 ML IV CONT ×2 (11:38→20:01)
[2020-05-05] MEDS: SODIUM CHLORIDE 0.9% IV 1,000 ML 75 ML IV CONT (11:44)
[2020-05-05 13:41] LABS: Add Urine Microscopic? YES; Amorphous Sediment Urine Moderate; Appearance Urine Cloudy (Clear); Bacteria Urine 2+ /hpf; Bilirubin Urine Negative (Negative); Blood Urine 1+ (Negative); Color Urine Amber (Yellow); Glucose Urine UA Negative (Negative); Ketones Urine Negative (Negative); Leukocyte Esterase Ur 2+ LEU/UL (NEGATIVE); Mucus Urine Heavy /lpf; Nitrate Urine Positive (Negative); Protein Urine 2+ mg/dL (Negative); Specific Grav Ur 1.024 (1.001-1.035); WBC Urine >75 /hpf (0-3)
[2020-05-05 17:35] LABS: Alveolar/Arterial O2 Gradient 613.2 mmHg; Fractional Inspired Oxygen 100 %; HCO3 ABG 28.2 mEq/l (22.0-26.0); Oxygen Content ABG 17.1 %vol (16.0-22.0); Oxygen Saturation ABG 91.8 % (95.0-100.0); Oxyhemoglobin 90.9 % THb (90.0-100.0); PCO2 ABG 40.9 mmHg (35.0-45.0); PO2 ABG 58.9 mmHg (80.0-100.0); PO2 FiO2 Ratio Arterial Blood 0.59 %; Total Hemoglobin 13.4 g/dL (12.0-18.0); pH ABG 7.457 (7.350-7.450)
[2020-05-05 17:36] LABS: Arterial Blood Gas PEEP 14 cmH2O; Arterial Blood Gas Vent Mode PRESSURE CONTROL; Arterial Blood Gas Ventilator rate 30 /MIN; Device VENTILATOR; Modified Allen's Test Pass; Peak Inspiratory Pressure 34 cmH2O; Site Drawn RIGHT RADIAL
[2020-05-05] MEDS: MONTELUKAST SODIUM 10 MG TABLET PO (21:05)
[2020-05-05] MEDS: ACETAMINOPHEN 325 MG TABLET 650 MG PO (21:06)
[2020-05-06] VITALS (39 sets, daily range): BP systolic 94–135; BP diastolic 51–73; PULSE 66–106; RESP 28–30; TEMP 36.2–36.9; O2SAT 83–95
[2020-05-06] MEDS: CISATRACURIUM BESYLATE 200 MG in DEXTROSE 5% 80 ML 13.64 ML IV CONT (01:12)
[2020-05-06] MEDS: EPOPROSTENOL SODIUM 0.5 MG VIAL 1 MG INHALATION ×4 (01:41→19:42)
[2020-05-06 04:31] LABS: Alveolar/Arterial O2 Gradient 605.6 mmHg; Base Excess ABG 5.5 mEq/l (+/-2.0); Fractional Inspired Oxygen 100 %; HCO3 ABG 28.6 mEq/l (22.0-26.0); Oxygen Content ABG 14.1 %vol (16.0-22.0); Oxygen Saturation ABG 95.8 % (95.0-100.0); Oxyhemoglobin 94.3 % THb (90.0-100.0); PCO2 ABG 36.3 mmHg (35.0-45.0); PO2 ABG 71.1 mmHg (80.0-100.0); PO2 FiO2 Ratio Arterial Blood 0.71 %; Total Hemoglobin 10.6 g/dL (12.0-18.0)
[2020-05-06 04:35] LABS: Arterial Blood Gas Ventilator rate 30 /MIN; Device VENTILATOR; Modified Allen's Test Pass; Site Drawn RIGHT RADIAL; pH ABG 7.515 (7.350-7.450)
[2020-05-06 04:36] LABS: Arterial Blood Gas PEEP 14 cmH2O; Arterial Blood Gas Vent Mode PRESSURE CONTROL; Peak Inspiratory Pressure 34 cmH2O
[2020-05-06 05:01] LABS: Basophils Percent Auto 0.3 % (0.2-1.2); Eosinophils Percent Auto 0.2 % (0-4.4); Hematocrit 28.5 % (37.0-47.0); Hemoglobin 9.1 g/dL (12.0-15.0); Immature Granulocyte Absolute 0.29 K/mm3 (0.00-0.031); Immature Granulocyte Percent A 2.4 % (0-0.5); Lymphocytes Absolute Auto 0.58 K/mm3 (0.9-3.2); Lymphocytes Percent Auto 4.9 % (18.3-44.2); Mean Corpuscular HGB Conc 31.9 g/dl (32-36); Mean Corpuscular Volume 84.6 fl (80-100); Mean Platelet Volume 10.7 fl (7.4-10.4); Monocytes Absolute Auto 0.5 K/mm3 (0.1-0.6); Monocytes Percent Auto 3.9 % (2.6-8.5); Neutrophils Absolute Auto 10.5 K/mm3 (1.3-6.7); Neutrophils Percent Auto 88.3 % (45.5-73.1); Platelet Count Result 245 k/mm3 (150-375); Red Blood Count 3.37 M/mm3 (4.2-5.4); Red Cell Distribution Width 13.7 % (11.5-14.5); White Blood Count 11.9 K/mm3 (4.5-10.0)
[2020-05-06 05:27] LABS: Anion Gap 3 mmol/L (8-16); Blood Urea Nitrogen 28 mg/dL (7-17); Calcium 8.7 mg/dL (8.4-10.2); Carbon Dioxide 33 mmol/L (22-30); Chloride 95 mmol/L (98-107); Estimated CRCL calculation 54 ml/min; Estimated Glomerular Filt Rate > 60; Glucose 132 mg/dL (65-105); Potassium 4.3 mmol/L (3.4-5.0); Sodium 131 mmol/L (137-145)
[2020-05-06] MEDS: CENTRAL LINE FLUSH 10 ML IV PUSH ×3 (06:28→21:26)
[2020-05-06] MEDS: SODIUM CHLORIDE 0.9% IV 1,000 ML 75 ML IV CONT (06:31)
[2020-05-06] MEDS: ALBUMIN HUMAN 25% 12.5 GM/50ML 50 ML IVPB ×3 (08:41→17:15)
[2020-05-06] MEDS: SERTRALINE HCL 50 MG TABLET 100 MG PO (08:53)
[2020-05-06] MEDS: polyethylene glycoL 3350 17 GM POWD.PACK PO (08:53)
[2020-05-06] MEDS: ENOXAPARIN 40 MG/0.4 ML SYRINGE SUB-Q ×2 (08:53→21:25)
[2020-05-06] MEDS: PANTOPRAZOLE 40 MG TABLET PO (08:53)
[2020-05-06] MEDS: CISATRACURIUM BESYLATE 200 MG in DEXTROSE 5% 80 ML 10.91 ML IV CONT ×2 (08:56→17:10)
[2020-05-06] MEDS: FENTANYL 2,500MCG/NS250ML(*CRX 2,500 MCG/250 ML BAG 10 MCG IV CONT (08:58)
--- NOTE | 2020-05-06 11:03 | WPDINTPN ---
Progress Note: A&P Assessment and Plan (1) Acute respiratory failure with hypoxia: Code(s): J96.01 - Acute respiratory failure with hypoxia Status: Acute Assessment and Plan: Acute Respiratory failure secondary to COVID-19 pneumonia -on 05/03/2020: Patient failed her BiPAP, 100% FiO2. Desaturating in the low 80s. Patient also tiring out, discussed with her regarding intubation to which she agreed and patient was successfully intubated and placed on mechanical ventilation. -on 05/05/2020: Patient was desaturating, peep was increased to 16, dropped to 14 later on and remained on 100% FiO2. -x-ray and ABGs reviewed, ventilator adjusted -remains on Flolan since 05/03 -continue Nimbex on 05/03 -sedated with fentanyl and Versed infusion -05/03, 05/04, 05/05 was proned for 14 hours - (2) Pneumonia due to 2019 novel coronavirus: Code(s): U07.1 - COVID-19; J12.82 - Pneumonia due to coronavirus disease 2019 Status: Acute Assessment and Plan: Patient is in Airborne, Droplet and Contact Isolation Completed course of dexamethasone Completed course of remdesivir Follow inflammatory periodically 04/23 - 1 unit of convalescent plasma (3) Asthma: Code(s): J45.909 - Unspecified asthma, uncomplicated Status: Acute Assessment and Plan: albuterol p.r.n. (4) DVT prophylaxis: Code(s): Z29.9 - Encounter for prophylactic measures, unspecified Status: Acute Assessment and Plan: lovenox q 12h (5) Cough: Code(s): R05 - Cough Status: Acute Assessment and Plan: Patient currently intubated and sedated, chemically paralyzed (6) Dietary counseling and surveillance: Code(s): Z71.3 - Dietary counseling and surveillance Status: Acute Assessment and Plan: Started on tube feeds and tolerating -stress ulcer prophylaxis: PPI Additional Plan Left a message for sister Perri at [phone] Code Status -patient wishes to be Full Code. Total Critical Care Time - 32 minutes Due to a high probability of clinically significant, life threatening deterioration, the patient required my highest level of preparedness to intervene emergently and I personally spent this critical care time directly and personally managing the patient. This critical care time included obtaining a history; examining the patient; pulse oximetry; ordering and review of studies; arranging urgent treatment with development of a management plan; evaluation of patient's response to treatment; frequent reassessment; and discussions with other providers. It was exclusive of separately billable procedures and treating other patients and teaching time. Please see Assessment and Plan section and the rest of the note for further information on patient assessment and treatment Subjective Date/time seen: 05/06/20 11:03 Interval history: 70-year-old female admitted with respiratory failure and COVID pneumonia. Symptoms started 04/11/2020 and positive COVID-19 swab 04/15. - completed finished remdesivir 04/25 -intubated 05/03/2020 05/06/2020: Patient was hypoxic yesterday, was placed in prone position and remained hypoxic. Ventilator settings were changed, peep was increased to 16. Later in the evening peep was decreased to 14 with improvement in her oxygenation. Patient currently on CMV mode of ventilation, 100% FiO2, peep of 14. Patient remains on Flolan and Nimbex for neuromuscular blockade. Fentanyl and Versed for sedation. Hemodynamically stable. Output is low. Patient is afebrile Review of Systems Review of Systems: ROS unobtainable: Yes unobtainable due to endotracheal tube Exam Const: General: comfortable and no acute distress HENMT: Other: ETT in place -some facial swelling and skin abrasion face due to prone positioning Eyes: Sclera: sclerae normal Pupils: Equal, round and reactive pupils present Resp: Effort & Inspection: normal respiratory effort A
--- NOTE | 2020-05-06 12:12 | PCDIET ---
Nutrition Follow-Up Complete: Nutrition Diagnosis: Suboptimal oral intake related to respiratory failure as evidenced by average intake of 35% of meals since admission. Nutrition Goal: Patient to meet estimated nutritional needs. Goal in progress. Tube feedings held for proning, but patient now receiving Vital 1.2 at 30mL/hr with goal of 50mL/hr. Discussed with MD possibility of volume based feedings; however, MD does not anticipate further proning today. Last recorded weight is 93.5 kg which is decreased from last review, despite +I/O. Bowel Motility: BM x 1 on 05/05/20. Labs Reviewed: Hgb (9.1), Hct (28.5), Glu (132), BUN (28), Na (131) Meds Noted: Albumin, Nimbex, Fentanyl, Versed, Protonix, Miralax Additional Notes: No documented skin breakdown. Will continue to monitor with same goal. Nutrition Monitoring and Evaluation: Follow up every Tuesday/Tuesday. Follow daily in ICU rounds.
[2020-05-06 16:33] LABS: Base Excess ABG 0.1 mEq/l (+/-2.0); Fractional Inspired Oxygen 100 %; HCO3 ABG 24.7 mEq/l (22.0-26.0); Oxygen Saturation ABG 92.2 % (95.0-100.0); Oxyhemoglobin 90.4 % THb (90.0-100.0); PCO2 ABG 40.3 mmHg (35.0-45.0); PO2 ABG 62.7 mmHg (80.0-100.0); PO2 FiO2 Ratio Arterial Blood 0.63 %; Site Drawn LEFT BRACHIAL; pH ABG 7.406 (7.350-7.450)
[2020-05-06 16:34] LABS: Arterial Blood Gas PEEP 12 cmH2O; Arterial Blood Gas Vent Mode PRESSURE CONTROL; Arterial Blood Gas Ventilator rate 28 /MIN; Device VENTILATOR; Peak Inspiratory Pressure 34 cmH2O
[2020-05-06] MEDS: MONTELUKAST SODIUM 10 MG TABLET PO (21:26)
[2020-05-07] VITALS (40 sets, daily range): BP systolic 81–118; BP diastolic 49–64; PULSE 72–108; RESP 28–34; TEMP 36.3–37.7; O2SAT 83–95
[2020-05-07] MEDS: ALBUMIN HUMAN 25% 12.5 GM/50ML 50 ML IVPB (00:26)
[2020-05-07] MEDS: EPOPROSTENOL SODIUM 0.5 MG VIAL 1 MG INHALATION ×5 (00:36→21:09)
[2020-05-07] MEDS: CISATRACURIUM BESYLATE 200 MG in DEXTROSE 5% 80 ML 10.91 ML IV CONT ×2 (01:31→11:55)
[2020-05-07 04:53] LABS: Alveolar/Arterial O2 Gradient 575.9 mmHg; Base Excess ABG 2.1 mEq/l (+/-2.0); Fractional Inspired Oxygen 100 %; HCO3 ABG 29.7 mEq/l (22.0-26.0); Oxygen Content ABG 11.3 %vol (16.0-22.0); Oxygen Saturation ABG 92.2 % (95.0-100.0); Oxyhemoglobin 90.8 % THb (90.0-100.0); PO2 ABG 72.5 mmHg (80.0-100.0); PO2 FiO2 Ratio Arterial Blood 0.73 %; Total Hemoglobin 8.8 g/dL (12.0-18.0)
[2020-05-07 04:55] LABS: Device VENTILATOR; Modified Allen's Test Pass; PCO2 ABG 64.6 mmHg (35.0-45.0); Site Drawn RIGHT RADIAL
[2020-05-07 04:56] LABS: Arterial Blood Gas Vent Mode PRESSURE CONTROL; Arterial Blood Gas Ventilator rate 28 /MIN
[2020-05-07 04:57] LABS: Arterial Blood Gas PEEP 16 cmH2O; Peak Inspiratory Pressure 34 cmH2O
[2020-05-07 06:12] LABS: D Dimer 3.92 ug/mL (<0.48)
[2020-05-07] MEDS: CENTRAL LINE FLUSH 10 ML IV PUSH ×3 (06:43→21:15)
[2020-05-07 08:01] LABS: Lactate Dehydrogenase 587 U/L (313-618)
[2020-05-07] MEDS: ENOXAPARIN 40 MG/0.4 ML SYRINGE SUB-Q ×2 (08:06→20:13)
[2020-05-07] MEDS: SERTRALINE HCL 50 MG TABLET 100 MG PO (08:07)
[2020-05-07] MEDS: PANTOPRAZOLE 40 MG TABLET PO (08:07)
[2020-05-07 08:29] LABS: CRP 37.6 mg/dL (<1.0)
--- NOTE | 2020-05-07 11:09 | WPDINTPN ---
Progress Note: A&P Assessment and Plan (1) Acute respiratory failure with hypoxia: Code(s): J96.01 - Acute respiratory failure with hypoxia Status: Acute Assessment and Plan: Acute Respiratory failure secondary to COVID-19 pneumonia -on 05/03/2020: Patient failed her BiPAP, 100% FiO2. Desaturating in the low 80s. Patient also tiring out, discussed with her regarding intubation to which she agreed and patient was successfully intubated and placed on mechanical ventilation. -on 05/06/2020 patient dropped O2 sats in the evening, patient was proned, increase PEEP to 16 and 100% FiO2 -x-ray and ABGs reviewed, increased opacities with more consolidation -remains on Flolan since 05/03 -continue Nimbex on 05/03 -sedated with fentanyl and Versed infusion -05/03, 05/04, 05/05, 05/06 for approx 14 hours each day - (2) Pneumonia due to 2019 novel coronavirus: Code(s): U07.1 - COVID-19; J12.82 - Pneumonia due to coronavirus disease 2019 Status: Acute Assessment and Plan: Patient is in Airborne, Droplet and Contact Isolation Completed course of dexamethasone Completed course of remdesivir Follow inflammatory periodically 04/23 - 1 unit of convalescent plasma (3) Asthma: Code(s): J45.909 - Unspecified asthma, uncomplicated Status: Acute Assessment and Plan: albuterol p.r.n. (4) DVT prophylaxis: Code(s): Z29.9 - Encounter for prophylactic measures, unspecified Status: Acute Assessment and Plan: lovenox q 12h (5) Cough: Code(s): R05 - Cough Status: Acute Assessment and Plan: Patient currently intubated and sedated, chemically paralyzed (6) Dietary counseling and surveillance: Code(s): Z71.3 - Dietary counseling and surveillance Status: Acute Assessment and Plan: Started on tube feeds and tolerating -stress ulcer prophylaxis: PPI Additional Plan Discussed with sister Perri at [phone] and updated her with patient's condition and plan of care. She is aware that patient is critically ill with significant ventilatory support. Wishes to continue with full code at this time. Code Status -patient wishes to be Full Code. Total Critical Care Time - 32 minutes Due to a high probability of clinically significant, life threatening deterioration, the patient required my highest level of preparedness to intervene emergently and I personally spent this critical care time directly and personally managing the patient. This critical care time included obtaining a history; examining the patient; pulse oximetry; ordering and review of studies; arranging urgent treatment with development of a management plan; evaluation of patient's response to treatment; frequent reassessment; and discussions with other providers. It was exclusive of separately billable procedures and treating other patients and teaching time. Please see Assessment and Plan section and the rest of the note for further information on patient assessment and treatment Subjective Date/time seen: 05/07/20 11:09 Interval history: 70-year-old female admitted with respiratory failure and COVID pneumonia. Symptoms started 04/11/2020 and positive COVID-19 swab 04/15. - completed finished remdesivir 04/25 -intubated 05/03/2020 05/07/2020: Patient remains intubated on pressure control ventilation, 100% FiO2, peep of 16, patient desaturated yesterday evening requiring increasing the P5, patient was placed in prone position. Remains on fentanyl, Versed infusion. Nimbex for neuromuscular blockade. Patient is on Flolan. Hemodynamically stable urine output has been adequate and patient is afebrile Review of Systems Review of Systems: ROS unobtainable: Yes unobtainable due to endotracheal tube Exam Const: General: comfortable and no acute distress HENMT: Other: ETT in place -some facial swelling and skin abrasion face due to prone positioning Eyes: Sclera: sclerae
[2020-05-07] MEDS: FENTANYL 2,500MCG/NS250ML(*CRX 2,500 MCG/250 ML BAG 10 MCG IV CONT (11:54)
[2020-05-07] MEDS: SODIUM CHLORIDE 0.9% IV 1,000 ML 999 ML IV CONT (16:30)
[2020-05-07 17:22] LABS: Base Excess ABG 1.2 mEq/l (+/-2.0); Device VENTILATOR; Fractional Inspired Oxygen 100 %; Modified Allen's Test Pass; Oxygen Content ABG 14.1 %vol (16.0-22.0); Oxygen Saturation ABG 90.6 % (95.0-100.0); Oxyhemoglobin 89.6 % THb (90.0-100.0); PCO2 ABG 41.6 mmHg (35.0-45.0); PO2 ABG 58.4 mmHg (80.0-100.0); PO2 FiO2 Ratio Arterial Blood 0.58 %; Site Drawn RIGHT RADIAL; Total Hemoglobin 11.2 g/dL (12.0-18.0); pH ABG 7.413 (7.350-7.450)
[2020-05-07 17:23] LABS: Arterial Blood Gas PEEP 16 cmH2O; Arterial Blood Gas Tidal Volume 400 ml; Arterial Blood Gas Vent Mode CMV; Arterial Blood Gas Ventilator rate 34 /MIN
[2020-05-07] MEDS: SODIUM CHLORIDE 0.9% IV 500 ML 999 ML IV CONT (19:55)
[2020-05-07] MEDS: MONTELUKAST SODIUM 10 MG TABLET PO (20:13)
[2020-05-07] MEDS: NOREPINEPHRINE 8 MG/D5W 250 ML 8 MG/250 ML BAG 9.38 MG IV CONT (21:14)
[2020-05-07] MEDS: CISATRACURIUM BESYLATE 200 MG in DEXTROSE 5% 80 ML 13.64 ML IV CONT (21:15)
[2020-05-08] VITALS (35 sets, daily range): BP systolic 87–136; BP diastolic 53–69; PULSE 65–84; RESP 24–34; TEMP 36.1–37.1; O2SAT 89–97
[2020-05-08 00:06] LABS: Glucose Point of Care 125 (65-105)
[2020-05-08] MEDS: EPOPROSTENOL SODIUM 0.5 MG VIAL 1 MG INHALATION ×5 (01:42→20:52)
[2020-05-08] MEDS: CISATRACURIUM BESYLATE 200 MG in DEXTROSE 5% 80 ML 13.64 ML IV CONT ×2 (04:19→10:43)
[2020-05-08 04:47] LABS: Hematocrit 25.1 % (37.0-47.0); Hemoglobin 7.9 g/dL (12.0-15.0); Mean Corpuscular HGB Conc 31.5 g/dl (32-36); Mean Corpuscular Hemoglobin 26.2 pg (26-34); Mean Corpuscular Volume 83.4 fl (80-100); Mean Platelet Volume 10.7 fl (7.4-10.4); Platelet Count Result 237 k/mm3 (150-375); Red Blood Count 3.01 M/mm3 (4.2-5.4); Red Cell Distribution Width 14.2 % (11.5-14.5); White Blood Count 12.4 K/mm3 (4.5-10.0)
[2020-05-08 05:00] LABS: Alveolar/Arterial O2 Gradient 606.1 mmHg; Base Excess ABG 0.4 mEq/l (+/-2.0); Fractional Inspired Oxygen 100 %; HCO3 ABG 25.1 mEq/l (22.0-26.0); Oxygen Content ABG 11.3 %vol (16.0-22.0); Oxygen Saturation ABG 93.2 % (95.0-100.0); PCO2 ABG 40.8 mmHg (35.0-45.0); PO2 ABG 66.1 mmHg (80.0-100.0); PO2 FiO2 Ratio Arterial Blood 0.66 %; Total Hemoglobin 8.8 g/dL (12.0-18.0); pH ABG 7.407 (7.350-7.450)
[2020-05-08 05:02] LABS: Arterial Blood Gas PEEP 14 cmH2O; Arterial Blood Gas Tidal Volume 400 ml; Arterial Blood Gas Vent Mode CMV; Arterial Blood Gas Ventilator rate 34 /MIN; Device VENTILATOR; Modified Allen's Test Unable to perform; Site Drawn RIGHT RADIAL
[2020-05-08 05:05] LABS: Alanine Aminotransferase 19 U/L (4-35); Albumin Level 2.6 g/dL (3.5-5.1); Alkaline Phosphatase 119 U/L (38-126); Anion Gap 4 mmol/L (8-16); Aspartate Amino Transferase 32 U/L (14-36); Bilirubin,Total 0.7 mg/dL (0.2-1.3); Blood Urea Nitrogen 33 mg/dL (7-17); Carbon Dioxide 31 mmol/L (22-30); Chloride 99 mmol/L (98-107); Estimated CRCL calculation 53 ml/min; Estimated Glomerular Filt Rate > 60; Glucose 113 mg/dL (65-105); Magnesium 2.3 mg/dL (1.6-2.3); Phosphorus 3.5 mg/dL (2.5-4.5); Potassium 4.1 mmol/L (3.4-5.0); Sodium 134 mmol/L (137-145)
[2020-05-08] MEDS: CENTRAL LINE FLUSH 10 ML IV PUSH ×3 (08:10→22:30)
[2020-05-08] MEDS: ENOXAPARIN 40 MG/0.4 ML SYRINGE SUB-Q ×2 (08:32→20:35)
[2020-05-08] MEDS: PANTOPRAZOLE 40 MG TABLET PO (08:32)
[2020-05-08] MEDS: SERTRALINE HCL 50 MG TABLET 100 MG PO (08:33)
--- NOTE | 2020-05-08 09:24 | WPDINTPN ---
Progress Note: A&P Assessment and Plan (1) Acute respiratory failure with hypoxia: Code(s): J96.01 - Acute respiratory failure with hypoxia Status: Acute Assessment and Plan: Acute Respiratory failure secondary to COVID-19 pneumonia -on 05/03/2020: Patient failed her BiPAP, 100% FiO2. Desaturating in the low 80s. Patient also tiring out, discussed with her regarding intubation to which she agreed and patient was successfully intubated and placed on mechanical ventilation. -on 05/06/2020 patient dropped O2 sats in the evening, patient was proned, increase PEEP to 16 and 100% FiO2 -patient desaturated several times this morning requiring rescue failed Ambu bag and PEEP valve -repeat chest x-ray was done show any pneumothorax and shows adequate location of ETT. Persistent bilateral infiltrates -I have increase PEEP to 20, decrease rate to 30 to compensate for pressures -remains on Flolan since 05/03 -continue Nimbex on 05/03 -she was started on empiric vancomycin and cefepime on 05/07. Repeat cultures are pending -sedated with fentanyl and Versed infusion -continue in prone at this time. This time will not tolerate supine position due to persistent hypoxia (2) Pneumonia due to 2019 novel coronavirus: Code(s): U07.1 - COVID-19; J12.82 - Pneumonia due to coronavirus disease 2019 Status: Acute Assessment and Plan: Patient is in Airborne, Droplet and Contact Isolation Completed course of dexamethasone and remdesivir Follow inflammatory periodically 04/23 - 1 unit of convalescent plasma (3) Asthma: Code(s): J45.909 - Unspecified asthma, uncomplicated Status: Acute Assessment and Plan: albuterol p.r.n. (4) DVT prophylaxis: Code(s): Z29.9 - Encounter for prophylactic measures, unspecified Status: Acute Assessment and Plan: lovenox q 12h (5) Cough: Code(s): R05 - Cough Status: Acute Assessment and Plan: Patient currently intubated and sedated, chemically paralyzed (6) Dietary counseling and surveillance: Code(s): Z71.3 - Dietary counseling and surveillance Status: Acute Assessment and Plan: Continuetube feeds and tolerating -stress ulcer prophylaxis: PPI (7) UTI (urinary tract infection): Code(s): N39.0 - Urinary tract infection, site not specified Status: Acute Assessment and Plan: Urine culture grew E coli which is sensitive to cefepime Continue cefepime Additional Plan I called and left message on voicemail of patient's sister Perri, I also spoke to Kitty who is patient's daughter and patient's son Robin by phone and updated them with patient's current status. I explained them patient's severe respiratory failure and persistent hypoxia despite maximum ventilatory support, Flolan, chemical paralysis and prone position. I discussed options of making her DNR and even palliative care. They will discuss among themselves before making further decisions Code Status - Full Code. Total Critical Care Time - 35 minutes Due to a high probability of clinically significant, life threatening deterioration, the patient required my highest level of preparedness to intervene emergently and I personally spent this critical care time directly and personally managing the patient. This critical care time included obtaining a history; examining the patient; pulse oximetry; ordering and review of studies; arranging urgent treatment with development of a management plan; evaluation of patient's response to treatment; frequent reassessment; and discussions with other providers. It was exclusive of separately billable procedures and treating other patients and teaching time. Please see Assessment and Plan section and the rest of the note for further information on patient assessment and treatment Subjective Date/time seen: 05/08/20 Overnight events reviewed.Afebrile Continues to be on mechanical ventilation wit
[2020-05-08] MEDS: FENTANYL 2,500MCG/NS250ML(*CRX 2,500 MCG/250 ML BAG 10 MCG IV CONT (10:46)
--- NOTE | 2020-05-08 11:15 | PCDIET ---
ICU Rounding Note: Tube feedings previously held due to prone positioning. MD order to resume tube feedings today. Last recorded weight is 96.8kg which is increased from last review. Bowel Motility: BM x 2 today. Labs Reviewed: Hgb (7.9), Hct (25.1), Glu (113), BUN (33), Na (134), Alb (2.6) Meds Noted: Cefepime, Fentanyl, Versed, Fentanyl, Nimbex, Levophed, Protonix, Vancomycin Additional Notes: No documented skin breakdown. Following daily in ICU rounds. Assessing/reassessing every Tuesday/Tuesday.
[2020-05-08 12:04] LABS: Glucose Point of Care 88 (65-105)
[2020-05-08] MEDS: CISATRACURIUM BESYLATE 200 MG in DEXTROSE 5% 80 ML 10.91 ML IV CONT (17:24)
[2020-05-08 17:31] LABS: Glucose Point of Care 86 (65-105)
[2020-05-08] MEDS: MONTELUKAST SODIUM 10 MG TABLET PO (20:35)
[2020-05-09] VITALS (45 sets, daily range): BP systolic 81–157; BP diastolic 50–84; PULSE 73–124; RESP 24–30; TEMP 36.2–37.1; O2SAT 90–97
[2020-05-09 00:53] LABS: Glucose Point of Care 84 (65-105)
[2020-05-09] MEDS: EPOPROSTENOL SODIUM 0.5 MG VIAL 1 MG INHALATION ×5 (01:16→22:30)
[2020-05-09] MEDS: CISATRACURIUM BESYLATE 200 MG in DEXTROSE 5% 80 ML 10.91 ML IV CONT ×2 (02:34→17:15)
[2020-05-09 04:33] LABS: Alveolar/Arterial O2 Gradient 569.9 mmHg; Base Excess ABG -0.1 mEq/l (+/-2.0); Carboxyhemoglobin 0.3 % THb (0-2.0); Fractional Inspired Oxygen 100 %; HCO3 ABG 27.4 mEq/l (22.0-26.0); Methemoglobin ABG 0.3 %THb (0-1.5); Oxygen Saturation ABG 95.4 % (95.0-100.0); Oxyhemoglobin 94.9 % THb (90.0-100.0); PCO2 ABG 57.2 mmHg (35.0-45.0); PO2 ABG 85.9 mmHg (80.0-100.0); PO2 FiO2 Ratio Arterial Blood 0.86 %; Reduced Hemoglobin 4.5 %THb (0-5.0); Total Hemoglobin 14.2 g/dL (12.0-18.0); pH ABG 7.299 (7.350-7.450)
[2020-05-09 04:34] LABS: Device VENTILATOR; Modified Allen's Test Pass; Site Drawn LEFT RADIAL
[2020-05-09 04:37] LABS: Arterial Blood Gas PEEP 20 cmH2O; Arterial Blood Gas Tidal Volume 400 ml; Arterial Blood Gas Vent Mode CMV; Arterial Blood Gas Ventilator rate 30 /MIN
[2020-05-09 04:48] LABS: Hematocrit 27.2 % (37.0-47.0); Hemoglobin 8.4 g/dL (12.0-15.0); Mean Corpuscular HGB Conc 30.9 g/dl (32-36); Mean Corpuscular Hemoglobin 26.7 pg (26-34); Mean Corpuscular Volume 86.3 fl (80-100); Mean Platelet Volume 10.2 fl (7.4-10.4); Platelet Count Result 233 k/mm3 (150-375); Red Blood Count 3.15 M/mm3 (4.2-5.4); Red Cell Distribution Width 14.6 % (11.5-14.5); White Blood Count 14.5 K/mm3 (4.5-10.0)
[2020-05-09 05:04] LABS: Alanine Aminotransferase 17 U/L (4-35); Albumin Level 2.6 g/dL (3.5-5.1); Alkaline Phosphatase 139 U/L (38-126); Anion Gap 3 mmol/L (8-16); Aspartate Amino Transferase 28 U/L (14-36); Bilirubin,Total 0.6 mg/dL (0.2-1.3); Blood Urea Nitrogen 28 mg/dL (7-17); Calcium 9.6 mg/dL (8.4-10.2); Carbon Dioxide 29 mmol/L (22-30); Chloride 100 mmol/L (98-107); Estimated CRCL calculation 69 ml/min; Estimated Glomerular Filt Rate > 60; Glucose 112 mg/dL (65-105); Magnesium 2.4 mg/dL (1.6-2.3); Phosphorus 3.9 mg/dL (2.5-4.5); Potassium 4.1 mmol/L (3.4-5.0); Sodium 132 mmol/L (137-145)
[2020-05-09 05:09] LABS: Lactate Dehydrogenase 551 U/L (313-618)
[2020-05-09 05:14] LABS: D Dimer 4.51 ug/mL (<0.48)
[2020-05-09 05:56] LABS: CRP 42.3 mg/dL (<1.0)
[2020-05-09] MEDS: CENTRAL LINE FLUSH 10 ML IV PUSH ×3 (06:12→20:40)
--- NOTE | 2020-05-09 08:30 | WPDINTPN ---
Progress Note: A&P Assessment and Plan (1) Acute respiratory failure with hypoxia: Code(s): J96.01 - Acute respiratory failure with hypoxia Status: Acute Assessment and Plan: Acute Respiratory failure secondary to COVID-19 pneumonia -on 05/03/2020: Patient failed her BiPAP, 100% FiO2. Desaturating in the low 80s. Patient also tiring out, discussed with her regarding intubation to which she agreed and patient was successfully intubated and placed on mechanical ventilation. -on 05/06/2020 patient dropped O2 sats in the evening, patient was proned, increase PEEP to 16 and 100% FiO2 -05/08 patient desaturated several times this morning requiring rescue failed Ambu bag and PEEP valve. -repeat chest x-ray was done and did not show any pneumothorax and shows adequate location of ETT. Persistent bilateral infiltrates. Peep increased to 20 -continues to be on PEEP of 20 100% FiO2 -permissive hypercapnia -remains on Flolan since 05/03 -continue Nimbex on 05/03 -she was started on empiric vancomycin and cefepime on 05/07. Repeat cultures are negative except urine culture which grew E coli. Will DC vancomycin tomorrow if cultures remain negative -sedated with fentanyl and Versed infusion -continue prone daily (2) Pneumonia due to 2019 novel coronavirus: Code(s): U07.1 - COVID-19; J12.82 - Pneumonia due to coronavirus disease 2019 Status: Acute Assessment and Plan: Patient is in Airborne, Droplet and Contact Isolation Completed course of dexamethasone and remdesivir Follow inflammatory periodically 04/23 - 1 unit of convalescent plasma (3) Asthma: Code(s): J45.909 - Unspecified asthma, uncomplicated Status: Acute Assessment and Plan: albuterol p.r.n. (4) DVT prophylaxis: Code(s): Z29.9 - Encounter for prophylactic measures, unspecified Status: Acute Assessment and Plan: lovenox q 12h (5) Cough: Code(s): R05 - Cough Status: Acute Assessment and Plan: Patient currently intubated and sedated, chemically paralyzed (6) Dietary counseling and surveillance: Code(s): Z71.3 - Dietary counseling and surveillance Status: Acute Assessment and Plan: Continuetube feeds and tolerating -stress ulcer prophylaxis: PPI (7) UTI (urinary tract infection): Code(s): N39.0 - Urinary tract infection, site not specified Status: Acute Assessment and Plan: Urine culture grew E coli which is sensitive to cefepime Continue cefepime (8) Edema: Code(s): R60.9 - Edema, unspecified Status: Acute Assessment and Plan: Lasix 40 mg IV x1 Lower extremity venous Dopplers to rule out DVT Additional Plan Code Status - Full Code. Total Critical Care Time - 30 minutes Due to a high probability of clinically significant, life threatening deterioration, the patient required my highest level of preparedness to intervene emergently and I personally spent this critical care time directly and personally managing the patient. This critical care time included obtaining a history; examining the patient; pulse oximetry; ordering and review of studies; arranging urgent treatment with development of a management plan; evaluation of patient's response to treatment; frequent reassessment; and discussions with other providers. It was exclusive of separately billable procedures and treating other patients and teaching time. Please see Assessment and Plan section and the rest of the note for further information on patient assessment and treatment Subjective Date/time seen: 05/09/20 Overnight events reviewed. Afebrile Continues to be on mechanical ventilation PEEP of 20 and FiO2 of 100 Continues to be on sedation and neuromuscular blockers Patient was kept in prone position overnight Interval history: 70-year-old female admitted with respiratory failure and COVID pneumonia. Symptoms started 04/11/2020 and positive COVID-19 s
[2020-05-09] MEDS: ENOXAPARIN 40 MG/0.4 ML SYRINGE SUB-Q (08:47)
[2020-05-09] MEDS: PANTOPRAZOLE 40 MG TABLET PO (08:47)
[2020-05-09] MEDS: FUROSEMIDE INJ 40 MG/4 ML VIAL IV PUSH (08:47)
[2020-05-09] MEDS: polyethylene glycoL 3350 17 GM POWD.PACK PO (08:48)
[2020-05-09] MEDS: SERTRALINE HCL 50 MG TABLET 100 MG PO (08:48)
[2020-05-09] MEDS: CISATRACURIUM BESYLATE 200 MG in DEXTROSE 5% 80 ML 13.64 ML IV CONT (10:06)
--- NOTE | 2020-05-09 10:53 | PCDIET ---
Nutrition Follow-Up Complete: Nutrition Diagnosis: Suboptimal oral intake related to respiratory failure as evidenced by average intake of 35% of meals since admission. Nutrition Goal: Patient to meet estimated nutritional needs. Goal in progress. Tube feedings held for proning and were resumed - Vital 1.2 currently at 40mL/hr with goal of 50mL/hr. Discussed with MD that tube feedings have been held for proning and obtained order for volume based feedings. Last recorded weight is 96.8 kg which is increased from last review. Bowel Motility: Last documented BM on 05/08/20 x 2. Labs Reviewed: Hgb (8.4), Hct (27.2), Glu (112), Na (132), Alb (2.6) Meds Noted: Cefepime, Nimbex, Fentanyl, Versed, Levophed, Protonix, Miralax, Vancomycin, Lasix Additional Notes: No documented skin breakdown. Will continue to monitor with same goal. Nutrition Monitoring and Evaluation: Follow up every Tuesday/Tuesday. Follow daily in ICU rounds.
--- NOTE | 2020-05-09 11:01 | PM.EVENT ---
Event Note Event Note Event Note: Venous Doppler show bilateral lower extremity DVTs. Will change Lovenox to therapeutic dose
[2020-05-09] MEDS: FENTANYL 2,500MCG/NS250ML(*CRX 2,500 MCG/250 ML BAG 10 MCG IV CONT (11:10)
[2020-05-09] MEDS: NOREPINEPHRINE 8 MG/D5W 250 ML 8 MG/250 ML BAG 7.5 MG IV CONT (11:25)
[2020-05-09 12:23] LABS: Glucose Point of Care 101 (65-105)
[2020-05-09] MEDS: ENOXAPARIN 60 MG/0.6 ML SYRINGE SUB-Q (13:04)
--- NOTE | 2020-05-09 17:14 | PC.NURSE ---
Unable to obtain weight due incline of bed position. Patient unable to tolerate lying flat
[2020-05-09] MEDS: PHARMACIST COMMUNICATION ORDER 1 EACH XX (20:33)
[2020-05-09] MEDS: ENOXAPARIN 100 MG/ML SYRINGE SUB-Q (20:40)
[2020-05-09] MEDS: MONTELUKAST SODIUM 10 MG TABLET PO (20:40)
[2020-05-10] VITALS (40 sets, daily range): BP systolic 91–134; BP diastolic 50–65; PULSE 74–105; RESP 25–34; TEMP 35.8–36.2; O2SAT 89–98
[2020-05-10] MEDS: EPOPROSTENOL SODIUM 0.5 MG VIAL 1 MG INHALATION ×3 (03:09→20:33)
[2020-05-10] MEDS: CISATRACURIUM BESYLATE 200 MG in DEXTROSE 5% 80 ML 13.64 ML IV CONT (03:21)
[2020-05-10] MEDS: CENTRAL LINE FLUSH 10 ML IV PUSH ×3 (04:37→20:39)
[2020-05-10 04:48] LABS: Hematocrit 27.3 % (37.0-47.0); Hemoglobin 8.6 g/dL (12.0-15.0); Mean Corpuscular HGB Conc 31.5 g/dl (32-36); Mean Corpuscular Hemoglobin 26.6 pg (26-34); Mean Corpuscular Volume 84.5 fl (80-100); Mean Platelet Volume 10.6 fl (7.4-10.4); Platelet Count Result 243 k/mm3 (150-375); Red Blood Count 3.23 M/mm3 (4.2-5.4); Red Cell Distribution Width 14.9 % (11.5-14.5); White Blood Count 20.7 K/mm3 (4.5-10.0)
[2020-05-10 05:26] LABS: Alveolar/Arterial O2 Gradient 510.2 mmHg; Base Excess ABG 0.7 mEq/l (+/-2.0); Carboxyhemoglobin 0.3 % THb (0-2.0); Fractional Inspired Oxygen 90 %; HCO3 ABG 26.8 mEq/l (22.0-26.0); Methemoglobin ABG 0.2 %THb (0-1.5); Oxygen Content ABG 12.9 %vol (16.0-22.0); Oxygen Saturation ABG 95.2 % (95.0-100.0); PO2 ABG 80.3 mmHg (80.0-100.0); PO2 FiO2 Ratio Arterial Blood 0.89 %; Reduced Hemoglobin 5.5 %THb (0-5.0); Total Hemoglobin 9.7 g/dL (12.0-18.0); pH ABG 7.347 (7.350-7.450)
[2020-05-10 05:27] LABS: Arterial Blood Gas Ventilator rate 30 /MIN; Device VENTILATOR; Modified Allen's Test Unable to perform; Site Drawn RIGHT RADIAL
[2020-05-10 05:28] LABS: Arterial Blood Gas PEEP 20 cmH2O; Arterial Blood Gas Tidal Volume 400 ml; Arterial Blood Gas Vent Mode ASSIST CONTROL
[2020-05-10 05:31] LABS: Alanine Aminotransferase 15 U/L (4-35); Albumin Level 2.5 g/dL (3.5-5.1); Alkaline Phosphatase 137 U/L (38-126); Anion Gap 1 mmol/L (8-16); Aspartate Amino Transferase 33 U/L (14-36); Bilirubin,Total 0.6 mg/dL (0.2-1.3); Blood Urea Nitrogen 40 mg/dL (7-17); Calcium 9.3 mg/dL (8.4-10.2); Carbon Dioxide 30 mmol/L (22-30); Chloride 100 mmol/L (98-107); Estimated CRCL calculation 61 ml/min; Estimated Glomerular Filt Rate > 60; Glucose 125 mg/dL (65-105); Magnesium 2.3 mg/dL (1.6-2.3); Phosphorus 4.3 mg/dL (2.5-4.5); Sodium 131 mmol/L (137-145)
[2020-05-10] MEDS: ENOXAPARIN 100 MG/ML SYRINGE SUB-Q ×2 (08:48→20:42)
[2020-05-10] MEDS: FUROSEMIDE INJ 40 MG/4 ML VIAL 20 MG IV PUSH ×2 (08:49→17:03)
[2020-05-10] MEDS: PANTOPRAZOLE 40 MG TABLET PO (08:49)
[2020-05-10] MEDS: polyethylene glycoL 3350 17 GM POWD.PACK PO (08:50)
[2020-05-10] MEDS: SERTRALINE HCL 50 MG TABLET 100 MG PO (08:50)
[2020-05-10] MEDS: OXACILLIN SODIUM 2 GM in SODIUM CHLORIDE 0.9% IV 100 ML IVPB ×4 (09:27→20:38)
--- NOTE | 2020-05-10 10:53 | WPDINTPN ---
Progress Note: A&P Assessment and Plan (1) Acute respiratory failure with hypoxia: Code(s): J96.01 - Acute respiratory failure with hypoxia Status: Acute Assessment and Plan: Acute Respiratory failure secondary to COVID-19 pneumonia -on 05/03/2020: Patient failed her BiPAP, 100% FiO2. Desaturating in the low 80s. Patient also tiring out, discussed with her regarding intubation to which she agreed and patient was successfully intubated and placed on mechanical ventilation. -on 05/06/2020 patient dropped O2 sats in the evening, patient was proned, increase PEEP to 16 and 100% FiO2 -05/08 patient desaturated several times this morning requiring rescue failed Ambu bag and PEEP valve. -repeat chest x-ray was done and did not show any pneumothorax and shows adequate location of ETT. Persistent bilateral infiltrates. Peep increased to 20 -continues to be on PEEP of 20 100% FiO2 -permissive hypercapnia -remains on Flolan since 05/03 -continue Nimbex on 05/03 -she was started on empiric vancomycin and cefepime on 05/07. Repeat cultures are negative except urine culture which grew E coli. Will DC vancomycin tomorrow if cultures remain negative -sedated with fentanyl and Versed infusion -continue prone daily (2) Pneumonia due to 2019 novel coronavirus: Code(s): U07.1 - COVID-19; J12.82 - Pneumonia due to coronavirus disease 2019 Status: Acute Assessment and Plan: Patient is in Airborne, Droplet and Contact Isolation Completed course of dexamethasone and remdesivir Follow inflammatory periodically 04/23 - 1 unit of convalescent plasma (3) Asthma: Code(s): J45.909 - Unspecified asthma, uncomplicated Status: Acute Assessment and Plan: albuterol p.r.n. (4) DVT prophylaxis: Code(s): Z29.9 - Encounter for prophylactic measures, unspecified Status: Acute Assessment and Plan: lovenox q 12h (5) Cough: Code(s): R05 - Cough Status: Acute Assessment and Plan: Patient currently intubated and sedated, chemically paralyzed (6) Dietary counseling and surveillance: Code(s): Z71.3 - Dietary counseling and surveillance Status: Acute Assessment and Plan: Continuetube feeds and tolerating -stress ulcer prophylaxis: PPI (7) UTI (urinary tract infection): Code(s): N39.0 - Urinary tract infection, site not specified Status: Acute Assessment and Plan: Urine culture grew E coli which is sensitive to cefepime Continue cefepime for total of 7 days. (8) Edema: Code(s): R60.9 - Edema, unspecified Status: Acute Assessment and Plan: Lasix 40 mg IV x1 Lower extremity venous Dopplers to rule out DVT (9) ARDS (adult respiratory distress syndrome): Code(s): J80 - Acute respiratory distress syndrome Status: Acute Assessment and Plan: The patient's ideal body weight is 50 kg. I will decrease her tidal volume from 400-350 and increase her respiratory rate to 35. Ideally she should go down to a tidal volume of 300 but that may not be possible given the severe lung disease as she has in gas exchange her minute volume would be way 2 low at 30 and respiratory rate could not go up much higher than that without significantly compromising her gas exchange and respiratory status. (10) MSSA bacteremia: Code(s): R78.81 - Bacteremia; B95.61 - Methicillin susceptible Staphylococcus aureus infection as the cause of diseases classified elsewhere Status: Acute Assessment and Plan: Will discontinue vancomycin and start oxacillin 2 g IV q.4h for total of 10 more days or 14 days from the last positive blood culture. Will repeat blood cultures today. Additional Plan Code Status - Full Code. Total Critical Care Time - 35 minutes Due to a high probability of clinically significant, life threatening deterioration, the patient required my highest level of preparedness to intervene timothy
[2020-05-10 12:43] LABS: Vancomycin Trough 10.6 ug/mL (10.0-20.0)
--- NOTE | 2020-05-10 13:02 | PM.IMPN ---
Progress Note: A&P Assessment and Plan (1) Pneumonia due to 2019 novel coronavirus: Code(s): U07.1 - COVID-19; J12.82 - Pneumonia due to coronavirus disease 2019 Status: Acute Assessment and Plan: Finished Remdesivir 04/25 and Dexamethasone D#8, Finished Plasma (2) Asthma: Code(s): J45.909 - Unspecified asthma, uncomplicated Status: Acute Assessment and Plan: Albuterol (3) Acute respiratory failure with hypoxia: Code(s): J96.01 - Acute respiratory failure with hypoxia Status: Acute Assessment and Plan: Secondary to Covid pna. (4) DVT prophylaxis: Code(s): Z29.9 - Encounter for prophylactic measures, unspecified Status: Acute Assessment and Plan: lovenox q 12h (5) UTI (urinary tract infection): Code(s): N39.0 - Urinary tract infection, site not specified Status: Acute Assessment and Plan: Empiric vancomycin and cefepime on 05/07. awaiting cultures Subjective Date/time seen: 05/10/20 13:02 Interval history: 70 year old female with PMHx significant for Asthma, GERD. Patient was diagnosed with Covid few days ago presented to ED due to worsening sob, dry cough, wheezing. Pt is icu with covid pneumonia, CT and lung was done to rule out PE and was negative. Pt is on a ventilator, Bp slightly low today. Review of Systems Review of Systems: ROS unobtainable: Yes unobtainable due to endotracheal tube Exam Narrative: Exam Narrative: Pt is on a ventilator intubated in icu RRR Abdo soft Neuro sedated and paralysed Extremities no edema Vital Signs Temp Pulse Resp BP Pulse Ox 05/10/20 16:00 36.0 C L 90 34 H 91/53 L 91 05/10/20 14:05 96 34 H 05/10/20 14:00 96 34 H 95/54 L 91 05/10/20 13:55 97 89 L 05/10/20 13:45 97 34 H 91 05/10/20 13:12 97 34 H 102/61 05/10/20 12:12 97 34 H 102/61 05/10/20 12:00 35.9 C L 97 34 H 102/61 94 05/10/20 11:37 95 89 L 05/10/20 10:00 95 30 H 106/58 L 91 05/10/20 09:45 97 114/63 05/10/20 08:42 97 30 H 92 05/10/20 08:00 36.1 C L 97 30 H 114/63 92 05/10/20 07:58 86 25 H 93 05/10/20 07:55 86 93 05/10/20 06:06 83 95 05/10/20 06:00 86 30 H 112/55 L 89 L 05/10/20 04:37 87 30 H 05/10/20 04:36 87 30 H 118/56 L 05/10/20 04:35 87 30 H 118/56 L 05/10/20 04:04 87 94 05/10/20 04:00 35.8 C L 85 30 H
[2020-05-10] MEDS: CISATRACURIUM BESYLATE 200 MG in DEXTROSE 5% 80 ML 10.91 ML IV CONT ×2 (13:12→22:16)
[2020-05-10] MEDS: FENTANYL 2,500MCG/NS250ML(*CRX 2,500 MCG/250 ML BAG 10 MCG IV CONT (14:05)
[2020-05-11] VITALS (47 sets, daily range): BP systolic 85–115; BP diastolic 47–94; PULSE 68–90; RESP 34; TEMP 34.6–35.9; O2SAT 90–99
[2020-05-11] MEDS: OXACILLIN SODIUM 2 GM in SODIUM CHLORIDE 0.9% IV 100 ML IVPB ×6 (01:00→21:53)
[2020-05-11] MEDS: EPOPROSTENOL SODIUM 0.5 MG VIAL 1 MG INHALATION ×5 (01:34→23:22)
[2020-05-11 04:44] LABS: Hematocrit 25.9 % (37.0-47.0); Hemoglobin 8.2 g/dL (12.0-15.0); Mean Corpuscular HGB Conc 31.7 g/dl (32-36); Mean Corpuscular Hemoglobin 27.1 pg (26-34); Mean Corpuscular Volume 85.5 fl (80-100); Mean Platelet Volume 10.8 fl (7.4-10.4); Platelet Count Result 227 k/mm3 (150-375); Red Blood Count 3.03 M/mm3 (4.2-5.4); Red Cell Distribution Width 15.4 % (11.5-14.5); White Blood Count 24.9 K/mm3 (4.5-10.0)
[2020-05-11] MEDS: CENTRAL LINE FLUSH 10 ML IV PUSH ×3 (04:44→21:53)
[2020-05-11 04:56] LABS: Alveolar/Arterial O2 Gradient 512.3 mmHg; Base Excess ABG 1.9 mEq/l (+/-2.0); Carboxyhemoglobin 0.3 % THb (0-2.0); Fractional Inspired Oxygen 90 %; Methemoglobin ABG 0.2 %THb (0-1.5); Oxygen Content ABG 14.2 %vol (16.0-22.0); Oxygen Saturation ABG 94.7 % (95.0-100.0); Oxyhemoglobin 94.1 % THb (90.0-100.0); PCO2 ABG 51.1 mmHg (35.0-45.0); PO2 FiO2 Ratio Arterial Blood 0.86 %; Reduced Hemoglobin 5.4 %THb (0-5.0); Total Hemoglobin 10.7 g/dL (12.0-18.0); pH ABG 7.357 (7.350-7.450)
[2020-05-11 04:57] LABS: Arterial Blood Gas PEEP 20 cmH2O; Arterial Blood Gas Tidal Volume 350 ml; Arterial Blood Gas Vent Mode CMV; Arterial Blood Gas Ventilator rate 34 /MIN; Device VENTILATOR; Modified Allen's Test Unable to perform; Site Drawn LEFT RADIAL
[2020-05-11 05:05] LABS: D Dimer 3.97 ug/mL (<0.48)
[2020-05-11 05:28] LABS: Alanine Aminotransferase 15 U/L (4-35); Albumin Level 2.4 g/dL (3.5-5.1); Alkaline Phosphatase 139 U/L (38-126); Anion Gap 3 mmol/L (8-16); Aspartate Amino Transferase 35 U/L (14-36); Bilirubin,Total 0.6 mg/dL (0.2-1.3); Blood Urea Nitrogen 55 mg/dL (7-17); CRP 24.9 mg/dL (<1.0); Calcium 9.2 mg/dL (8.4-10.2); Carbon Dioxide 28 mmol/L (22-30); Chloride 101 mmol/L (98-107); Estimated CRCL calculation 39 ml/min; Estimated Glomerular Filt Rate 40; Glucose 109 mg/dL (65-105); Lactate Dehydrogenase 658 U/L (313-618); Magnesium 2.4 mg/dL (1.6-2.3); Phosphorus 5.2 mg/dL (2.5-4.5); Potassium 3.9 mmol/L (3.4-5.0); Sodium 132 mmol/L (137-145)
[2020-05-11] MEDS: CISATRACURIUM BESYLATE 200 MG in DEXTROSE 5% 80 ML 10.91 ML IV CONT ×2 (07:24→16:35)
[2020-05-11] MEDS: FUROSEMIDE INJ 40 MG/4 ML VIAL 20 MG IV PUSH ×2 (08:26→16:38)
[2020-05-11] MEDS: ENOXAPARIN 100 MG/ML SYRINGE SUB-Q ×2 (08:26→21:54)
[2020-05-11] MEDS: SERTRALINE HCL 50 MG TABLET 100 MG PO (08:27)
[2020-05-11] MEDS: PANTOPRAZOLE 40 MG TABLET PO (08:27)
[2020-05-11] MEDS: polyethylene glycoL 3350 17 GM POWD.PACK PO (08:27)
--- NOTE | 2020-05-11 08:52 | PM.IMPN ---
Progress Note: A&P Assessment and Plan (1) Pneumonia due to 2019 novel coronavirus: Code(s): U07.1 - COVID-19; J12.82 - Pneumonia due to coronavirus disease 2019 Status: Acute Assessment and Plan: Received convalescent plasma Completed Remdesivir 04/24 Completed Dexamethasone 04/29 ARDS picture on CXR Continue low volume ventilation and wean as possible Currently on CMV with TV 350, rate 34, PEEP 20, FiO2 0.9 Prognosis very poor (2) UTI (urinary tract infection): Qualifiers: Urinary tract infection type: site unspecified Hematuria presence: without hematuria Qualified Code(s): N39.0 - Urinary tract infection, site not specified Code(s): N39.0 - Urinary tract infection, site not specified Status: Acute Assessment and Plan: Empiric cefepime started 05/07 Culture with susceptible e. coli (3) MSSA bacteremia: Code(s): R78.81 - Bacteremia; B95.61 - Methicillin susceptible Staphylococcus aureus infection as the cause of diseases classified elsewhere Status: Acute Assessment and Plan: Vancomycin started 05/07 Switched to oxacillin 05/10 (4) Acute respiratory failure with hypoxia: Code(s): J96.01 - Acute respiratory failure with hypoxia Status: Acute Assessment and Plan: Due to COVID-19 pneumonia Continue ventilator support (5) Asthma: Qualifiers: Asthma severity: unspecified severity Asthma persistence: unspecified Asthma complication type: unspecified Qualified Code(s): J45.909 - Unspecified asthma, uncomplicated Code(s): J45.909 - Unspecified asthma, uncomplicated Status: Acute Assessment and Plan: Continue bronchodilators (6) DVT prophylaxis: Code(s): Z29.9 - Encounter for prophylactic measures, unspecified Status: Acute Assessment and Plan: lovenox 100mg q 12h Subjective Date/time seen: 05/11/20 08:52 Interval history: 70 year old female with PMHx significant for Asthma, GERD. Patient was diagnosed with Covid few days ago presented to ED due to worsening sob, dry cough, wheezing. 05/11: Remains on ventilator. Review of Systems Review of Systems: ROS unobtainable: Yes unobtainable due to endotracheal tube Exam Narrative: Exam Narrative: HEENT: PERRL, sclerae nonicteric, pharyngeal mucosa pink and intact NECK: No JVD, adenopathy, or thyromegaly CHEST: Coarse BS HEART: NL S1/S2, regular, no murmur ABDOMEN: BS+, soft, nontender, no mass, no bruits EXTREMITIES: No cyanosis, trace pedal edema NEUROLOGIC: CN intact and symmetric to inspection. No corneal reflex. MUSCULOSKELETAL: Tone symmetric PSYCH: Unresponsive to tactile or vocal stimuli. Objective Data Vital Signs Vital Signs: Vital Signs - 24 hr 05/10/20 09:45 05/10/20 10:00 05/10/20 11:37 Temperature Pulse Rate 97 95 95 Respiratory Rate 30 H Blood Pressure 114/63 106/58 L Pulse Oximetry 91 89 L 05/10/20 12:00 05/10/20 12:12 05/10/20 13:12 Temperature 96.7 F L Pulse Rate 97 97 97 Respiratory Rate 34 H 34 H 34 H Blood Pressure 102/61 102/61 102/61 Pulse Oximetry 94 05/10/20 13:45 05/10/20 13:55 05/10/20 14:00 Temperature Pulse Rate 97 97 96 Respiratory Rate 34 H 34 H Blood Pressure 95/54 L Pulse Oximetry 91 89 L 91 05/10/20 14:05 05/10/20 16:00 05/10/20 16:45 Temperature 96.8 F L Pulse Rate 96 90 98 Respiratory Rate 34 H 34 H Blood Pressure 91/53 L Pulse Oximetry 91 90 05/10/20 17:00 05/10/20 18:00 05/10/20 20:00 Temperature 96.7 F L Pulse Rate 98 105 H 102 H Respiratory Rate 34 H 34 H 34 H Blood Pressure 93/50 L 91/50 L Pulse Oximetry 94 92 97 05/10/20 20:29 05/10/20 20:32 05/10/20 20:45 Temperature Pulse Rate 94 94 94 Respiratory Rate 34 H 34 H Blood Pressure 91/50 L Pulse Oximetry 97 97 05/10/20 20:46 05/10/20 22:00 05/10/20 22:10 Temperature Pulse Rate 94 91 92 Respiratory Rate 34 H 34 H Blood Pressure 99/63 L Pulse Ox
--- NOTE | 2020-05-11 11:26 | WPDINTPN ---
Progress Note: A&P Assessment and Plan (1) Acute respiratory failure with hypoxia: Code(s): J96.01 - Acute respiratory failure with hypoxia Status: Acute Assessment and Plan: Acute Respiratory failure secondary to COVID-19 pneumonia -on 05/03/2020: Patient failed her BiPAP, 100% FiO2. Desaturating in the low 80s. Patient also tiring out, discussed with her regarding intubation to which she agreed and patient was successfully intubated and placed on mechanical ventilation. -on 05/06/2020 patient dropped O2 sats in the evening, patient was proned, increase PEEP to 16 and 100% FiO2 -05/08 patient desaturated several times this morning requiring rescue failed Ambu bag and PEEP valve. -repeat chest x-ray was done and did not show any pneumothorax and shows adequate location of ETT. Persistent bilateral infiltrates. Peep increased to 20 - will decrease PEEP to 18, continue TV of 350, RR 34, FiO2 of 90% -permissive hypercapnia -remains on Flolan since 05/03 -continue Nimbex on 05/03 -sedated with fentanyl and Versed infusion -continue prone daily for 12-16 hours as tolerated (2) Pneumonia due to 2019 novel coronavirus: Code(s): U07.1 - COVID-19; J12.82 - Pneumonia due to coronavirus disease 2019 Status: Acute Assessment and Plan: Patient is in Airborne, Droplet and Contact Isolation Completed course of dexamethasone and remdesivir Follow inflammatory periodically 04/23 - 1 unit of convalescent plasma (3) Asthma: Code(s): J45.909 - Unspecified asthma, uncomplicated Status: Acute Assessment and Plan: albuterol p.r.n. (4) DVT prophylaxis: Code(s): Z29.9 - Encounter for prophylactic measures, unspecified Status: Acute Assessment and Plan: lovenox q 12h (5) Cough: Code(s): R05 - Cough Status: Acute Assessment and Plan: Patient currently intubated and sedated, chemically paralyzed (6) Dietary counseling and surveillance: Code(s): Z71.3 - Dietary counseling and surveillance Status: Acute Assessment and Plan: Continuetube feeds and tolerating -stress ulcer prophylaxis: PPI (7) UTI (urinary tract infection): Code(s): N39.0 - Urinary tract infection, site not specified Status: Acute Assessment and Plan: Urine culture grew E coli which is sensitive to cefepime Continue cefepime for total of 7 days. (8) Edema: Code(s): R60.9 - Edema, unspecified Status: Acute Assessment and Plan: Lasix 40 mg IV x1 Lower extremity venous Dopplers to rule out DVT (9) ARDS (adult respiratory distress syndrome): Code(s): J80 - Acute respiratory distress syndrome Status: Acute Assessment and Plan: The patient's ideal body weight is 50 kg. I will decrease her tidal volume from 400-350 and increase her respiratory rate to 35. Ideally she should go down to a tidal volume of 300 but that may not be possible given the severe lung disease as she has in gas exchange her minute volume would be way 2 low at 30 and respiratory rate could not go up much higher than that without significantly compromising her gas exchange and respiratory status. (10) MSSA bacteremia: Code(s): R78.81 - Bacteremia; B95.61 - Methicillin susceptible Staphylococcus aureus infection as the cause of diseases classified elsewhere Status: Acute Assessment and Plan: Will discontinue vancomycin and start oxacillin 2 g IV q.4h for total of 10 more days or 14 days from the last positive blood culture. Repeat blood cultures from yesterday negative so far Additional Plan Code Status - Full Code. Total Critical Care Time - 35 minutes Due to a high probability of clinically significant, life threatening deterioration, the patient required my highest level of preparedness to intervene emergently and I personally spent this critical care time directly and personally managing the patient. This critica
[2020-05-11] MEDS: FENTANYL 2,500MCG/NS250ML(*CRX 2,500 MCG/250 ML BAG 10 MCG IV CONT (17:14)
[2020-05-12] VITALS (49 sets, daily range): BP systolic 89–110; BP diastolic 45–62; PULSE 85–110; RESP 34; TEMP 36.1–37; O2SAT 90–100
[2020-05-12] MEDS: OXACILLIN SODIUM 2 GM in SODIUM CHLORIDE 0.9% IV 100 ML IVPB ×6 (01:11→20:05)
[2020-05-12] MEDS: CISATRACURIUM BESYLATE 200 MG in DEXTROSE 5% 80 ML 10.91 ML IV CONT ×2 (01:43→11:07)
[2020-05-12] MEDS: EPOPROSTENOL SODIUM 0.5 MG VIAL 1 MG INHALATION ×5 (03:31→21:59)
[2020-05-12 03:38] LABS: Base Excess ABG -3.4 mEq/l (+/-2.0); Carboxyhemoglobin 0.3 % THb (0-2.0); Fractional Inspired Oxygen 100 %; HCO3 ABG 22.8 mEq/l (22.0-26.0); Methemoglobin ABG 0.5 %THb (0-1.5); Oxygen Content ABG 11.9 %vol (16.0-22.0); Oxygen Saturation ABG 97.7 % (95.0-100.0); Oxyhemoglobin 96.7 % THb (90.0-100.0); PCO2 ABG 46.8 mmHg (35.0-45.0); PO2 ABG 112.2 mmHg (80.0-100.0); PO2 FiO2 Ratio Arterial Blood 1.12 %; Reduced Hemoglobin 2.5 %THb (0-5.0); Total Hemoglobin 8.6 g/dL (12.0-18.0); pH ABG 7.306 (7.350-7.450)
[2020-05-12 03:39] LABS: Device VENTILATOR; Site Drawn LEFT BRACHIAL
[2020-05-12 03:40] LABS: Arterial Blood Gas PEEP 18 cmH2O; Arterial Blood Gas Tidal Volume 350 ml; Arterial Blood Gas Vent Mode ASSIST CONTROL; Arterial Blood Gas Ventilator rate 34 /MIN
[2020-05-12 04:45] LABS: Hematocrit 26.6 % (37.0-47.0); Mean Corpuscular HGB Conc 30.1 g/dl (32-36); Mean Corpuscular Hemoglobin 25.6 pg (26-34); Platelet Count Result 291 k/mm3 (150-375); Red Blood Count 3.13 M/mm3 (4.2-5.4); Red Cell Distribution Width 16.3 % (11.5-14.5); White Blood Count 28.6 K/mm3 (4.5-10.0)
[2020-05-12] MEDS: CENTRAL LINE FLUSH 10 ML IV PUSH ×2 (04:49→20:05)
[2020-05-12 05:25] LABS: Alanine Aminotransferase 16 U/L (4-35); Albumin Level 2.6 g/dL (3.5-5.1); Alkaline Phosphatase 146 U/L (38-126); Anion Gap 6 mmol/L (8-16); Aspartate Amino Transferase 39 U/L (14-36); Bilirubin,Total 0.5 mg/dL (0.2-1.3); Blood Urea Nitrogen 75 mg/dL (7-17); Calcium 9.2 mg/dL (8.4-10.2); Carbon Dioxide 26 mmol/L (22-30); Chloride 102 mmol/L (98-107); Estimated CRCL calculation 24 ml/min; Estimated Glomerular Filt Rate 22; Glucose 113 mg/dL (65-105); Magnesium 2.8 mg/dL (1.6-2.3); Phosphorus 7.1 mg/dL (2.5-4.5); Potassium 4.9 mmol/L (3.4-5.0); Sodium 134 mmol/L (137-145)
[2020-05-12] MEDS: SODIUM CHLORIDE 0.9% IV 500 ML IV CONT ×2 (05:55→11:11)
--- NOTE | 2020-05-12 05:55 | PC.NURSE ---
notified of elevated heart rate, low blood pressure of 82/67 and Creat. of 2.2. 500 ml bolus ordered of NS
--- NOTE | 2020-05-12 06:19 | PC.NURSE ---
Updated Dr. Powell regarding development of Left sided pneumothorax.
[2020-05-12] MEDS: ENOXAPARIN 100 MG/ML SYRINGE SUB-Q ×2 (08:23→20:06)
[2020-05-12] MEDS: SERTRALINE HCL 50 MG TABLET 100 MG PO (08:25)
[2020-05-12] MEDS: polyethylene glycoL 3350 17 GM POWD.PACK PO (08:25)
[2020-05-12] MEDS: PANTOPRAZOLE 40 MG TABLET PO (08:25)
--- NOTE | 2020-05-12 09:48 | PM.CNGS ---
Assessment and Plan Assessment and plan (1) Pneumothorax, left: Code(s): J93.9 - Pneumothorax, unspecified Status: Acute Assessment and Plan: I have reviewed the chest x-rays and discussed the findings with Dr. Hobbs in the ICU. Patient remains in critical condition in the ICU but is not showing any signs of tension pneumothorax. The nursing staff has discussed the new findings of the x-ray with the family and I have recommended proceeding with left-sided chest tube placement urgently to prevent any further decompensation. (2) COVID-19: Code(s): U07.1 - COVID-19 Status: Acute (3) Acute respiratory failure with hypoxia: Code(s): J96.01 - Acute respiratory failure with hypoxia Status: Acute History of Present Illness Consult details Consult date: 05/12/20 Reason for consult: chest tube Requesting physician: Easton Hobbs MD Narrative: This is a 70-year-old woman who I am asked to see for placement of a chest tube. She is intubated and sedated. History is obtained from the chart and from the ICU physician and nurse. Has been in the hospital since 04/20/2020 with COVID related acute respiratory failure. And mechanical ventilation on 05/03/2020. She has required increasing PEEP to maintain adequate ventilation. Have been showing worsening bilateral lung disease, but this morning's chest x-ray showed evidence of a left-sided pneumothorax. Her oxygen saturations have been maintaining in the low 90s. She still remains on 100% FiO2. Review of Systems Review of Systems: ROS unobtainable: Yes unobtainable due to endotracheal tube, unobtainable due to medical condition and unobtainable due to mental status PMF Past Medical History Medical History COVID-19 UTI (urinary tract infection) Family History Family History Mother Family history of arthritis Family history of chronic obstructive pulmonary disease Sibling Family history of arthritis Social History Social History Smoking status: Never smoker Alcohol intake: never Substance use: never Gender identity (if verbalized by the patient): Female Spiritual care concerns: No Meds Home Medications and Allergies Home Medications Medication Instructions Recorded Confirmed Type albuterol sulfate [ProAir HFA] 2 puff INHALATION QID PRN #8.5 g 04/15/20 04/20/20 Rx montelukast 10 mg PO DAILY 04/15/20 04/20/20 History pantoprazole 40 mg PO DAILY 04/15/20 04/20/20 History prednisone 20 mg PO BID #14 tablet 04/15/20 04/20/20 Rx sertraline 100 mg PO DAILY 04/15/20 04/20/20 History benzonatate 200 mg PO TID PRN 04/20/20 04/20/20 History Allergies Allergy/AdvReac Type Severity Reaction Status Date / Time Dairy Allergy Unknown Wheezing Uncoded 04/15/20 20:22 Vital Signs Vital Signs - 24 hr 05/11/20 10:00 05/11/20 10:05 05/11/20 12:00 Temperature 35.7 C L Pulse Rate 89 87 88 Respiratory Rate 34 H 34 H Blood Pressure 95/60 L 95/56 L Pulse Oximetry 95 95 92 05/11/20 12:05 05/11/20 14:00 05/11/20 14:29 Temperature Pulse Rate 88 85 80 Respiratory Rate 34 H 34 H Blood Pressure 99/60 L Pulse Oximetry 92 94 93 05/11/20 15:10 05/11/20 16:00 05/11/20 16:08 Temperature 35.7 C L Pulse Rate 85 85 85 Respiratory Rate 34 H 34 H Blood Pressure 103/57 L Pulse Oximetry 93 93 05/11/20 16:34 05/11/20 16:35 05/11/20 17:14 Temperature Pulse Rate 85 85 85 Respiratory Rate 34 H 34 H 34 H Blood Pressure 103/57 L 103/57 L Pulse Oximetry 05/11/20 17:40 05/11/20 17:57 05/11/20 18:00 Temperature Pulse Rate 87 87 83 Respiratory Rate 34 H 34 H Blood Pressure 112/60 Pulse Oximetry 92 92 95 05/11/20 19:27 05/11/20 20:00 05/11/20 21:39 Temperature Pulse Rate 82 83 79 Respiratory Rate 34 H 34 H 34 H
--- NOTE | 2020-05-12 09:58 | P.OP_ITS ---
Procedure Note - Detailed Date of procedure: 05/12/20 Pre-op diagnosis: L pneumothorax, Acute resp failure, COVID-19 Post-op diagnosis: same Procedure performed: Left thoracostomy tube placement Description of procedure: Telephone consent was obtained and placed in chart prior to procedure. Time-out was done to confirm patient and procedure. Patient was placed in supine position in hospital bed. Her left chest area was prepped and draped in sterile fashion using chlorhexidine prep. 1% lidocaine with epinephrine was infiltrated along the left anterior axillary space in the 5th intercostal space. A 2 cm i ncision was made using a 15 blade scalpel. Careful blunt dissection was carried out down to the 6th rib. A curved hemostat was then used to bluntly dissect directly over the 6th rib and into the 5th intercostal space. Then bluntly entered into the intercostal space and through the pleura into the pleural cavity. A gush of air was released. A 28 Martiniquais chest tube was then advanced cephalad and anteriorly. The chest tube was sutured in place using 0 silk suture. Vaseline gauze was then applied at the insertion site, followed by 4 x 4 gauze and silk tape. The chest tube was applied to -20 cm of water suction. The patient was then sat up in bed and chest x-ray was ordered to confirm placement. Anesthesia: none Surgeon: Cresencio Villegas DO Estimated blood loss (mL): 2 Drains: Yes ( 28 Martiniquais chest tube) Complications: No immediate complications Condition: stable Disposition: floor
--- NOTE | 2020-05-12 11:40 | PCDIET ---
ICU Rounding Note: Patient tolerating Vital 1.2 at 50mL/hr goal rate, per RN. Continues on 30mL water flush every 4 hours. Last recorded weight is 99.8kg which is increased from last review. +I/O. Bowel Motility: Last documented BM on 05/08/20 x 2. Labs Reviewed: Hgb (8.0), Hct (26.6), Glu (113), BUN (75), Cr (2.2), Na (134), Alb (2.6), PO4 (7.1), Mg (2.8) Meds Noted: Cefepime, Nimbex, Fentanyl, Versed, Levophed, Oxacillin, Protonix, Miralax Additional Notes: RN reports swelling in face and lip area, but no open sores. Following daily in ICU rounds. Assessing/reassessing every Tuesday/Tuesday.
--- NOTE | 2020-05-12 13:16 | WPDINTPN ---
Progress Note: A&P Assessment and Plan (1) Acute respiratory failure with hypoxia: Code(s): J96.01 - Acute respiratory failure with hypoxia Status: Acute Assessment and Plan: Acute Respiratory failure secondary to COVID-19 pneumonia -on 05/03/2020: Patient failed her BiPAP, 100% FiO2. Desaturating in the low 80s. Patient also tiring out, discussed with her regarding intubation to which she agreed and patient was successfully intubated and placed on mechanical ventilation. -on 05/06/2020 patient dropped O2 sats in the evening, patient was proned, increase PEEP to 16 and 100% FiO2 -05/08 patient desaturated several times this morning requiring rescue failed Ambu bag and PEEP valve. -repeat chest x-ray was done and did not show any pneumothorax and shows adequate location of ETT. Persistent bilateral infiltrates. Peep increased to 20 -05/11: Peep was decreased to 18, chest x-ray this morning on 05/12/2020 showed moderate pneumothorax. Chest tube was inserted by surgery -ABGs reviewed,a -remains on Flolan since 05/03 -continue Nimbex on 05/03 -sedated with fentanyl and Versed infusion (2) Pneumonia due to 2019 novel coronavirus: Code(s): U07.1 - COVID-19; J12.82 - Pneumonia due to coronavirus disease 2019 Status: Acute Assessment and Plan: Patient is in Airborne, Droplet and Contact Isolation Completed course of dexamethasone and remdesivir Follow inflammatory periodically 04/23 - 1 unit of convalescent plasma (3) Asthma: Qualifiers: Asthma severity: unspecified severity Asthma persistence: unspecified Asthma complication type: unspecified Qualified Code(s): J45.909 - Unspecified asthma, uncomplicated Code(s): J45.909 - Unspecified asthma, uncomplicated Status: Acute Assessment and Plan: albuterol p.r.n. (4) DVT prophylaxis: Code(s): Z29.9 - Encounter for prophylactic measures, unspecified Status: Acute Assessment and Plan: lovenox q 12h (5) Cough: Code(s): R05 - Cough Status: Acute Assessment and Plan: Patient currently intubated and sedated, chemically paralyzed (6) Dietary counseling and surveillance: Code(s): Z71.3 - Dietary counseling and surveillance Status: Acute Assessment and Plan: Continue tube feeds and tolerating -stress ulcer prophylaxis: PPI (7) UTI (urinary tract infection): Qualifiers: Urinary tract infection type: site unspecified Hematuria presence: without hematuria Qualified Code(s): N39.0 - Urinary tract infection, site not specified Code(s): N39.0 - Urinary tract infection, site not specified Status: Acute Assessment and Plan: Urine culture grew E coli which is sensitive to cefepime Continue cefepime for total of 7 days. (8) Edema: Code(s): R60.9 - Edema, unspecified Status: Acute Assessment and Plan: Lasix 40 mg IV x1 Lower extremity venous Dopplers to rule out DVT (9) ARDS (adult respiratory distress syndrome): Code(s): J80 - Acute respiratory distress syndrome Status: Acute Assessment and Plan: The patient's ideal body weight is 50 kg. I will decrease her tidal volume from 400-350 and increase her respiratory rate to 35. Ideally she should go down to a tidal volume of 300 but that may not be possible given the severe lung disease as she has in gas exchange her minute volume would be way 2 low at 30 and respiratory rate could not go up much higher than that without significantly compromising her gas exchange and respiratory status. (10) MSSA bacteremia: Code(s): R78.81 - Bacteremia; B95.61 - Methicillin susceptible Staphylococcus aureus infection as the cause of diseases classified elsewhere Status: Acute Assessment and Plan: Continue oxacillin 2 g IV q.4h for total of 10 more days or 14 days from the last positive blood culture. Repeat blood cultures from yesterday negative
--- NOTE | 2020-05-12 15:35 | PM.IMPN ---
Progress Note: A&P Assessment and Plan (1) Pneumonia due to 2019 novel coronavirus: Code(s): U07.1 - COVID-19; J12.82 - Pneumonia due to coronavirus disease 2019 Status: Acute Assessment and Plan: Received convalescent plasma Completed Remdesivir 04/24 Completed Dexamethasone 04/29 ARDS picture on CXR Trying to wean off ventilator unsuccessful Prognosis very poor (2) UTI (urinary tract infection): Qualifiers: Urinary tract infection type: site unspecified Hematuria presence: without hematuria Qualified Code(s): N39.0 - Urinary tract infection, site not specified Code(s): N39.0 - Urinary tract infection, site not specified Status: Acute Assessment and Plan: Empiric cefepime started 05/07 Culture with susceptible e. coli (3) MSSA bacteremia: Code(s): R78.81 - Bacteremia; B95.61 - Methicillin susceptible Staphylococcus aureus infection as the cause of diseases classified elsewhere Status: Acute Assessment and Plan: Vancomycin started 05/07 Switched to oxacillin 05/10 (4) Acute respiratory failure with hypoxia: Code(s): J96.01 - Acute respiratory failure with hypoxia Status: Acute Assessment and Plan: Due to COVID-19 pneumonia Continue ventilator support (5) Asthma: Qualifiers: Asthma severity: unspecified severity Asthma persistence: unspecified Asthma complication type: unspecified Qualified Code(s): J45.909 - Unspecified asthma, uncomplicated Code(s): J45.909 - Unspecified asthma, uncomplicated Status: Acute Assessment and Plan: Continue bronchodilators (6) DVT prophylaxis: Code(s): Z29.9 - Encounter for prophylactic measures, unspecified Status: Acute Assessment and Plan: lovenox 100mg q 12h Subjective Date/time seen: 05/12/20 15:35 Interval history: 70 year old female with PMHx significant for Asthma, GERD. Patient was diagnosed with Covid few days ago presented to ED due to worsening sob, dry cough, wheezing. Pt is icu with covid pneumonia, CT and lung was done to rule out PE and was negative. Pt is on a ventilator, Bp stil low today. Review of Systems Review of Systems: ROS unobtainable: Yes unobtainable due to endotracheal tube Exam Narrative: Exam Narrative: Pt is on ventilator in icu Abdo soft non tender Legs non edematous Neuro sedated in icu Objective Data Vital Signs Vital Signs: Vital Signs - 24 hr 05/11/20 16:00 05/11/20 16:08 05/11/20 16:34 Temperature 35.7 C L Pulse Rate 85 85 85 Respiratory Rate 34 H 34 H Blood Pressure 103/57 L 103/57 L Pulse Oximetry 93 93 05/11/20 16:35 05/11/20 17:14 05/11/20 17:40 Temperature Pulse Rate 85 85 87 Respiratory Rate 34 H 34 H Blood Pressure 103/57 L Pulse Oximetry 92 05/11/20 17:57 05/11/20 18:00 05/11/20 19:27 Temperature Pulse Rate 87 83 82 Respiratory Rate 34 H 34 H 34 H Blood Pressure 112/60 Pulse Oximetry 92 95 96 05/11/20 20:00 05/11/20 21:39 05/11/20 22:00 Temperature 35.6 C L Pulse Rate 83 79 85 Respiratory Rate 34 H 34 H 34 H Blood Pressure 108/59 L 115/94 H Pulse Oximetry 95 96 95 05/11/20 22:04 05/11/20 22:05 05/11/20 23:27 Temperature Pulse Rate 80 78 84 Respiratory Rate 34 H 34 H 34 H Blood Pressure 115/94 H Pulse Oximetry 94 05/11/20 23:58 05/12/20 00:00 05/12/20 01:05 Temperature 36.1 C L Pulse Rate 85 85 95 Respiratory Rate 34 H 34 H 34 H Blood Pressure 98/51 L 89/56 L 98/51 L Pulse Oximetry 95 95 05/12/20 01:10 05/12/20 01:26 05/12/20 01:43 Temperature 36.7 C Pulse Rate 95 95 Respiratory Rate 34 H 34 H Blood Pressure 92/54 L Pulse Oximetry 95 05/12/20 02:00 05/12/20 03:00 05/12/20 03:17 Temperature 36.6 C Pulse Rate 99 97 98 Respiratory Rate 34 H 34 H 34 H Blood Pressure 92/53 L 94/52 L Pulse Oximetry 90 95 95 05/12/20 03:21 05/12/20 04:00 05/12/20 04:52 Temperature 37.0 C P
[2020-05-12] MEDS: FENTANYL 2,500MCG/NS250ML(*CRX 2,500 MCG/250 ML BAG 10 MCG IV CONT (19:36)
[2020-05-12] MEDS: CISATRACURIUM BESYLATE 200 MG in DEXTROSE 5% 80 ML 9.55 ML IV CONT (19:40)
[2020-05-13] VITALS (19 sets, daily range): BP systolic 96–111; BP diastolic 52–56; PULSE 81–91; RESP 34; TEMP 36.2–36.9; O2SAT 92–99
[2020-05-13] MEDS: OXACILLIN SODIUM 2 GM in SODIUM CHLORIDE 0.9% IV 100 ML IVPB ×3 (01:16→08:54)
[2020-05-13] MEDS: EPOPROSTENOL SODIUM 0.5 MG VIAL 1 MG INHALATION ×3 (01:56→06:53)
[2020-05-13 04:09] LABS: Hemoglobin 7.7 g/dL (12.0-15.0); Mean Corpuscular HGB Conc 29.6 g/dl (32-36); Mean Corpuscular Hemoglobin 26.3 pg (26-34); Mean Corpuscular Volume 88.7 fl (80-100); Mean Platelet Volume 11.1 fl (7.4-10.4); Platelet Count Result 303 k/mm3 (150-375); Red Blood Count 2.93 M/mm3 (4.2-5.4); Red Cell Distribution Width 17.2 % (11.5-14.5); White Blood Count 30.5 K/mm3 (4.5-10.0)
[2020-05-13 04:31] LABS: Alanine Aminotransferase 15 U/L (4-35); Albumin Level 2.6 g/dL (3.5-5.1); Alkaline Phosphatase 136 U/L (38-126); Anion Gap 10 mmol/L (8-16); Aspartate Amino Transferase 37 U/L (14-36); Bilirubin,Total 0.5 mg/dL (0.2-1.3); Blood Urea Nitrogen 96 mg/dL (7-17); Carbon Dioxide 22 mmol/L (22-30); Chloride 102 mmol/L (98-107); Estimated CRCL calculation 17 ml/min; Estimated Glomerular Filt Rate 15; Glucose 149 mg/dL (65-105); Magnesium 2.7 mg/dL (1.6-2.3); Potassium 5.3 mmol/L (3.4-5.0); Sodium 134 mmol/L (137-145)
[2020-05-13 04:57] LABS: Alveolar/Arterial O2 Gradient 420.8 mmHg; Base Excess ABG -8.7 mEq/l (+/-2.0); Carboxyhemoglobin 0.3 % THb (0-2.0); Fractional Inspired Oxygen 80 %; HCO3 ABG 19.7 mEq/l (22.0-26.0); Methemoglobin ABG 0.4 %THb (0-1.5); Oxygen Saturation ABG 94.2 % (95.0-100.0); Oxyhemoglobin 94.8 % THb (90.0-100.0); PO2 ABG 89.8 mmHg (80.0-100.0); PO2 FiO2 Ratio Arterial Blood 1.12 %; Reduced Hemoglobin 4.5 %THb (0-5.0); Total Hemoglobin 8.1 g/dL (12.0-18.0)
[2020-05-13 05:00] LABS: Device VENTILATOR; Modified Allen's Test Unable to perform; Site Drawn RIGHT RADIAL; pH ABG 7.157 (7.350-7.450)
[2020-05-13 05:01] LABS: Arterial Blood Gas PEEP 18 cmH2O; Arterial Blood Gas Tidal Volume 350 ml; Arterial Blood Gas Vent Mode ASSIST CONTROL; Arterial Blood Gas Ventilator rate 34 /MIN
[2020-05-13] MEDS: CISATRACURIUM BESYLATE 200 MG in DEXTROSE 5% 80 ML 9.55 ML IV CONT (05:57)
[2020-05-13] MEDS: CENTRAL LINE FLUSH 10 ML IV PUSH (05:58)
[2020-05-13] MEDS: SODIUM BICARBONATE 8.4% 50 MEQ/50 ML SYRINGE 100 MEQ IV PUSH (06:40)
--- NOTE | 2020-05-13 07:33 | WPDCDIQUERY2 ---
CDI Query Clarification Request 1) On05/09 lower extremity edema documented -Venous doppler ordered and showing: Bilateral below the knee DVT. Please clarify if there is a corresponding diagnosis for above finding. <Liss Rivera RN - Last Filed: 05/13/20 07:42>
[2020-05-13] MEDS: PANTOPRAZOLE 40 MG TABLET PO (08:47)
[2020-05-13] MEDS: ENOXAPARIN 100 MG/ML SYRINGE SUB-Q (08:48)
[2020-05-13] MEDS: SERTRALINE HCL 50 MG TABLET 100 MG PO (08:48)
[2020-05-13] MEDS: SODIUM BICARBONATE 8.4% 50 MEQ/50 ML VIAL IV PUSH (08:48)
[2020-05-13] MEDS: SODIUM POLYSTYRENE SULFONONATE 15 GM/60 ML BTL PO (08:52)
[2020-05-13] MEDS: DEXTROSE 50% 25 GM/50 ML SYRINGE IV PUSH (08:53)
[2020-05-13] MEDS: INSULIN HUMAN REGULAR (*BKC) 100 UNITS/ML 10 UNITS IV PUSH (08:56)
--- NOTE | 2020-05-13 10:49 | PCDIET ---
Nutrition Follow-Up Complete: Nutrition Diagnosis: Suboptimal oral intake related to respiratory failure as evidenced by average intake of 35% of meals since admission. Nutrition Goal: Patient to meet estimated nutritional needs. Goal met; however, MD ordered to hold tube feedings at this time. Plan for withdrawal of care later this morning. Last recorded weight is 102.4 kg which is increased from last review. +I/O. Bowel Motility: +BM today. Labs Reviewed: Hgb (7.7), Hct (26.0), Glu (149), BUN (96), Cr (3.1), K (5.3), Na (134), Alb (2.6), Mg (2.7) Meds Noted: Cefepime, Nimbex, Kayexalate, Fentanyl, Versed, Levophed, Oxacillin, Protonix Additional Notes: Thoracostomy tube placed 05/12/20. Facial swelling noted. Will continue to monitor for plan of care. Should aggressive measures be continued, will recommend resuming tube feedings (Nepro). Nutrition Monitoring and Evaluation: Follow up every Tuesday/Tuesday. Follow daily in ICU rounds.
[2020-05-13] MEDS: LORazepam INJ (*CRX) 2 MG/ML VIAL IV PUSH (11:38)
[2020-05-13] MEDS: MORPHINE SULFATE INJ (*CRX) 10 MG/ML AMP 5 MG IV PUSH (11:38)
--- NOTE | 2020-05-13 11:42 | WPDINTPN ---
Progress Note: A&P Assessment and Plan (1) Acute respiratory failure with hypoxia: Code(s): J96.01 - Acute respiratory failure with hypoxia Status: Acute Assessment and Plan: Acute Respiratory failure secondary to COVID-19 pneumonia -on 05/03/2020: Patient failed her BiPAP, 100% FiO2. Desaturating in the low 80s. Patient also tiring out, discussed with her regarding intubation to which she agreed and patient was successfully intubated and placed on mechanical ventilation. -on 05/06/2020 patient dropped O2 sats in the evening, patient was proned, increase PEEP to 16 and 100% FiO2 -05/08 patient desaturated several times this morning requiring rescue failed Ambu bag and PEEP valve. -repeat chest x-ray was done and did not show any pneumothorax and shows adequate location of ETT. Persistent bilateral infiltrates. Peep increased to 20 -05/12/2020: Peep was decreased to 18, chest x-ray this morning on 05/12/2020 showed moderate pneumothorax. Chest tube was inserted by surgery -05/13/2020: ABGs reviewed, peep decreased to 16 and tidal volume increased 400 -patient has facial wounds and facial swelling related to prone position, some of the wounds or bleeding since patient is on therapeutic dose of Lovenox -remains on Flolan since 05/03 -continue Nimbex on 05/03 -sedated with fentanyl and Versed infusion (2) Pneumonia due to 2019 novel coronavirus: Code(s): U07.1 - COVID-19; J12.82 - Pneumonia due to coronavirus disease 2019 Status: Acute Assessment and Plan: Patient is in Airborne, Droplet and Contact Isolation Completed course of dexamethasone and remdesivir Follow inflammatory periodically 04/23 - 1 unit of convalescent plasma (3) Asthma: Qualifiers: Asthma severity: unspecified severity Asthma persistence: unspecified Asthma complication type: unspecified Qualified Code(s): J45.909 - Unspecified asthma, uncomplicated Code(s): J45.909 - Unspecified asthma, uncomplicated Status: Acute Assessment and Plan: albuterol p.r.n. (4) DVT prophylaxis: Code(s): Z29.9 - Encounter for prophylactic measures, unspecified Status: Acute Assessment and Plan: Therapeutic Lovenox q.12 hours (5) Cough: Code(s): R05 - Cough Status: Acute Assessment and Plan: Patient currently intubated and sedated, chemically paralyzed (6) Dietary counseling and surveillance: Code(s): Z71.3 - Dietary counseling and surveillance Status: Acute Assessment and Plan: Continue tube feeds and tolerating -stress ulcer prophylaxis: PPI (7) UTI (urinary tract infection): Qualifiers: Urinary tract infection type: site unspecified Hematuria presence: without hematuria Qualified Code(s): N39.0 - Urinary tract infection, site not specified Code(s): N39.0 - Urinary tract infection, site not specified Status: Acute Assessment and Plan: Urine culture grew E coli which is sensitive to cefepime Continue cefepime for total of 7 days. (8) Edema: Code(s): R60.9 - Edema, unspecified Status: Acute Assessment and Plan: Lasix 40 mg IV x1 05/09/2020: Venous Dopplers showed bilateral [id number] deep venous thrombosis. -lower extremity edema/swelling likely related to DVT -patient on therapeutic Lovenox q.12 hours (9) MSSA bacteremia: Code(s): R78.81 - Bacteremia; B95.61 - Methicillin susceptible Staphylococcus aureus infection as the cause of diseases classified elsewhere Status: Acute Assessment and Plan: Continue oxacillin 2 g IV q.4h for total of 10 more days or 14 days from the last positive blood culture. Repeat blood cultures from yesterday negative so far Additional Plan Discussed with son Robin and daughter Kitty, they [place] was see the patient, discussed with them in details regarding patient's condition, they requested to make her comfortable and
--- NOTE | 2020-05-13 13:44 | P.DN_ITS ---
Discharge Sum: Prov Provider Primary care physician: Eric French MD Admitting provider: Camila Green DO Consults: 04/23/20 Consult to Physician Routine Comment: Consulting Provider: Andrey Royal house calls nurse/MD group to consult: Dr Royal Reason for consultation: respiratory failure Has provider been notified: Yes 05/12/20 07:35 Consult to Physician Routine Comment: CALLED CONSULT TO DR OFFICE Consulting Provider: Cresencio Villegas house calls nurse/MD group to consult: Surgery Reason for consultation: left Pneumothorax - placement of Chest tube Has provider been notified: Yes Discharge Sum: Diag Contributing Factors (1) Pneumothorax, left: (2) MSSA bacteremia: (3) Edema: (4) Pneumonia due to 2019 novel coronavirus: (5) Acute respiratory failure with hypoxia: (6) Ventilator dependence: Discharge Sum: Summary Date and Time Date of admission: 04/20/20 03:24 Date of : 05/13/20 Time of : 12:35 Additional Data Family: at bedside Attending/PCP notified?: Yes Attending physician: Camila Green DO Advance directives: Yes Hospice patient?: No
--- NOTE | 2020-05-14 06:27 | WPDCDIQUERY2 ---
CDI Query Clarification Request -On05/09 lower extremity edema documented -Venous doppler ordered and showing: Bilateral below the knee DVT. Please clarify if there is a corresponding diagnosis for above finding.
== END 2020-05-13 12:03 | disposition expired | DRG 207 ==
LOC: ANHED 03:51 → ANHICU 05:38 → ANHIMU 04-22 11:42 → ANHICU 05-12 10:01 → ANHIMU 05-14 12:41
PROVIDERS: Internal Medicine; Admitting Provider Internal Medicine; Emergency Provider Emergency Medicine; PCP Family Medicine Adolescent Medicine; Visit Provider Internal Medicine
DX: U07.1 COVID-19 (principal); J12.82 Pneumonia due to coronavirus disease 2019; J80 Acute respiratory distress syndrome; Z68.41 Body mass index [BMI] 40.0-44.9, adult; N39.0 Urinary tract infection, site not specified; I82.403 Acute embolism and thrombosis of unspecified deep veins of lower extremity, bilateral; R78.81 Bacteremia; Z66 Do not resuscitate; Z51.5 Encounter for palliative care; J93.9 Pneumothorax, unspecified; K21.9 Gastro-esophageal reflux disease without esophagitis; J45.909 Unspecified asthma, uncomplicated; E66.9 Obesity, unspecified; G47.30 Sleep apnea, unspecified; B96.20 Unspecified Escherichia coli [E. coli] as the cause of diseases classified elsewhere; R60.9 Edema, unspecified; B95.61 Methicillin susceptible Staphylococcus aureus infection as the cause of diseases classified elsewhere; I95.9 Hypotension, unspecified; E87.5 Hyperkalemia; S01.80XA Unspecified open wound of other part of head, initial encounter; X58.XXXA Exposure to other specified factors, initial encounter; Y93.9 Activity, unspecified; Y92.230 Patient room in hospital as the place of occurrence of the external cause
CPT/HCPCS: 31500; 36415; 36430; 36569; 36600; 71045; 71275; 80048; 80053; 80076; 80202; 81001; 82306; 82375; 82565; 82728; 82805; 82948; 83050; 83605; 83615; 83735; 83880; 84100; 84460; 85025; 85027; 85380; 85610; 85730; 86140; 86480; 86900; 86901; 87040; 87070; 87077; 87086; 87088; 87147; 87186; 87205; 93005; 93970; 94002; 94003; 94640; 96365; 97161; 97166; 99291; A9270; C1729; C1751; J0131; J0692; J1100; J1650; J1815; J1940; J2060; J2250; J2270; J2700; J3010; J3370; J7030; J7040; J7050; P9047; P9059; Q9967